=== PATIENT | male | born 1930 | race Caucasian/White ===

== ENCOUNTER 2020-04-06 10:46 | Inpatient (IN) | payer OTHER ==
[2020-04-06 11:05] VITALS: BMI 21.9
--- NOTE | 2020-04-06 11:18 | PDOC ---
History of Present Illness - General Chief Complaint: Injury Stated Complaint: FALL Time Seen by Provider: 04/06/20 10:55 - History of Present Illness Initial Comments: 04/06/20 11:32 89y/o M hx of HTN, pericarditis, [place] x3 (2005), angina, HLD< CVA , PAD, BPH, acid reflux, left hydrocolectomy (2014) presents to the ED after fall last night. Pt reports getting out of bed to go to the bathroom feeling lightheaded and finding himself on the floor. Pt stayed onthe floor for about 10 hours and was found by one of his housemates who called EMS. pt reports being awake all those hours, but could not get himself up because he felt weak. pt uses a cane for ambulation at baseline and does experience some weakness in his legs at baseline. pt reports falling primarily on his right side. he denies chest pain, shortness of breath, fevers, chills, nausea, vomiting before falling or afterwards. PMHx: as noted above ROS: as noted SHx: Denies Etoh, IVDA, tobacco use Allergies: NKDA ROS: GENERAL/CONSTITUTIONAL: No fever or chills. No weakness. HEAD, EYES, EARS, NOSE AND THROAT: No change in vision. No ear pain or discharge. No sore throat. CARDIOVASCULAR: No chest pain or shortness of breath RESPIRATORY: No cough, wheezing, or hemoptysis. GASTROINTESTINAL: No nausea, vomiting, diarrhea or constipation. GENITOURINARY: No dysuria, frequency, or change in urination. MUSCULOSKELETAL: No joint or muscle swelling or pain. No neck or back pain. SKIN: No rash NEUROLOGIC: No headache, vertigo, loss of consciousness, or change in strength/sensation. ENDOCRINE: No increased thirst. No abnormal weight change HEMATOLOGIC/LYMPHATIC: No anemia, easy bleeding, or history of blood clots. ALLERGIC/IMMUNOLOGIC: No hives or skin allergy. PE: GENERAL: Awake, alert, and fully oriented, in no acute distress HEAD: No signs of trauma, normocephalic, atraumatic EYES: PERRLA, EOMI, sclera anicteric, conjunctiva clear ENT: Auricles normal inspection, hearing grossly normal, nares patent, oropharynx clear without exudates. Moist mucosa NECK: Normal ROM, supple, no lymphadenopathy, JVD, or masses LUNGS: No distress, speaks full sentences, clear to auscultation bilaterally HEART: Regular rate and rhythm, normal S1 and S2, no murmurs, rubs or gallops, peripheral pulses normal and equal bilaterally. ABDOMEN: Soft, nontender, normoactive bowel sounds. No guarding, no rebound. No masses MSK: bruising on right side of back, no ttp. ttp of right hip. no spinal tenderness. bruising at right elbow(pt reports old) EXTREMITIES : Normal inspection, Normal range of motion, no edema. delayed capillary refill of 4s NEUROLOGICAL: Cranial nerves II through XII grossly intact. Normal speech, normal gait, no focal sensorimotor deficits SKIN: Warm, Dry, normal turgor, no rashes or lesions noted MDM DDx including but not limited to: tia, orthostatic, cardiac (acs, arrythmia) Workup: head and c-spine without contrast, labs, ekg, chest x-ray, right rib series. TX: Scores - HEART score - EKG: normal sinus rhythm, HR bpm, MD ms, QRS ms, QTc ms ED course meds: Re-assessment: 04/06/20 11:45 Past History - Medical History Allergies/Adverse Reactions: Allergies Allergy/AdvReac Type Severity Reaction Status Date / Time No Known Allergies Allergy Verified 04/06/20 11:06 Home Medications: Ambulatory Orders Amlodipine Besylate [Norvasc -] 10 mg PO DAILY 04/06/20 Aspirin [ASA -] 81 mg PO DAILY 04/06/20 Atorvastatin Ca [Lipitor] 80 mg PO HS 04/06/20 Clopidogrel Bisulfate [Plavix] 75 mg PO DAILY 04/06/20 Hydrochlorothiazide [Hctz -] 25 mg PO DAILY 04/06/20 Multivit-Min/FA/Lycopen/Lutein [Centrum Silver Tablet] 1 each PO DAILY 04/06/20 Nitroglycerin 0.4 mg SL PRN 04/06/20 Ranolazine [Ranexa] 500 mg PO BID 04/06/20 Saw [place] Fruit/Zinc Picoli [Saw [place] Capsule] 1 each PO DAILY 04/06/20 Cardiac Disorders: (stent) COPD: No GI Disorders: Yes (reflux) HTN: Yes Hypercholesterolemia: Yes - Surgical History Cardiac Surgery: (stent x3) - Immunization History Immunization Up to Date: No - Psycho-Social/Smoking History Smoking History: Former smoker Have you smoked in the past 12 months: No Information on smoking cessation initiated: No - Substance Abuse Hx (Audit-C & DAST Scrn) How often the patient has a drink containing alcohol: 2-3 times / week Number of drinks the patient has on a typical day: 1 or 2 How often the patient has six or more drinks on one occasion: Never Score: In Men: 4 or > Positive; In Women: 3 or > Positive: 3 Screen Result (Pos requires Nsg. Audit-10AR): Negative In the last yr the pt used illegal drug/Rx for NonMed reason: No Score: Yes response is considered Positive: 0 Screen Result (Positive result requires Nsg. DAST-10): Negative *Physical Exam - Vital Signs Last Vital Signs Temp Pulse Resp BP Pulse Ox 98.6 F 86 18 170/86 100 04/06/20 10:50 04/06/20 10:50 04/06/20 10:50 04/06/20 10:50 04/06/20 10:50 Heart Score/ECG Review - History History: Moderately suspicious - Electrocardiogram EKG: Non specific repolarization disturbance - Age Age: >/= 65 - Risk Factors Risk Factors Heart Score: Yes Hx Hypercholesterolemia, Yes Hx Hypertension Based on the list above the patient has:: 1-2 risk factors - Troponin Troponin: </= normal limit - Score Heart Score - Total: 5 ED Treatment Course - LABORATORY CBC & Chemistry Diagram: 04/06/20 11:15 04/06/20 11:15 - RADIOLOGY Radiology Studies Ordered: Category Date Time Status HEAD CT WITHOUT CONTRAST [CT] Stat CT Scan 04/06/20 10:55 Ordered CHEST X-RAY PORTABLE* [RAD] Stat Radiology 04/06/20 10:53 Completed Discharge - Follow up/Referral - Patient Discharge Instructions - Post Discharge Activity
[2020-04-06 11:45] LABS: BASO % 0.2 % (0-2.0); EOS % 0.1 % (0-4.5); HEMATOCRIT 36.2 % (35.4-49); HEMOGLOBIN 12.3 GM/dL (11.7-16.9); LYMPH % 7.9 % (8-40); MCH 31.3 pg (25.7-33.7); MCHC 34.1 g/dl (32.0-35.9); MEAN CELL VOLUME 91.9 fl (80-96); MEAN PLT VOLUME 7.5 fl (7.5-11.1); MONO % 7.1 % (3.8-10.2); NEUT % 84.7 % (42.8-82.8); PLATELET COUNT 242 K/MM3 (134-434); RBC 3.93 M/mm3 (4.00-5.60); RDW 14.6 % (11.9-15.9); WHITE BLOOD COUNT 13.4 K/mm3 (4.0-10.0)
[2020-04-06 11:53] LABS: INR 0.96 (0.83-1.09); PROTHROMBIN TIME (PATIENT) 11.3 SEC (9.7-13.0)
[2020-04-06 11:56] LABS: ACTIVATED PTT 27.8 SECONDS (25.2-36.5)
[2020-04-06 12:05] LABS: ALBUMIN 3.4 g/dl (3.4-5.0); BILIRUBIN,TOTAL 1.1 mg/dL (0.2-1); BLOOD UREA NITROGEN 28.1 mg/dL (7-18); CALCIUM 9.4 mg/dL (8.5-10.1); CREATININE 1.6 mg/dL (0.55-1.3); POTASSIUM 3.6 mmol/L (3.5-5.1); TOT PROT 6.6 g/dl (6.4-8.2)
--- NOTE | 2020-04-06 12:39 | EKG ---
Test Reason : Blood Pressure : / mmHG Vent. Rate : 084 BPM Atrial Rate : 084 BPM P-R Int : 154 ms QRS Dur : 094 ms QT Int : 392 ms P-R-T Axes : 000 045 041 degrees QTc Int : 463 ms POOR DATA QUALITY, INTERPRETATION MAY BE ADVERSELY AFFECTED SINUS RHYTHM WITH PREMATURE SUPRAVENTRICULAR COMPLEXES NONSPECIFIC ST ABNORMALITY ABNORMAL ECG NO PREVIOUS ECGS AVAILABLE Confirmed by Tarun Napier ([id number]) on 04/06/2020 12:39:35 PM Referred By: Confirmed By:Tarun Napier
--- NOTE | 2020-04-06 12:48 | PDOC ---
Documentation entered by Julio Frausto SCRIBE, acting as scribe for Deyanira Ramirez MD. Deyanira Ramirez MD: This documentation has been prepared by the scribe, Julio Frausto SCRIBE, under my direction and personally reviewed by me in its entirety. I confirm that the documentation accurately reflects all work, treatment, procedures, and medical decision making performed by me. Attending Attestation - Resident Resident Name: Vanessa Gonzaelz - ED Attending Attestation I have performed the following: I have examined & evaluated the patient, The case was reviewed & discussed with the resident, I agree w/resident's findings & plan, Exceptions are as noted - HPI HPI: 04/06/20 11:54 The patient is an 89 year old male with a significant past medical history of [place] x3 (2004), pericarditis, CVA, PAD, HTN, HLD, GERD, BPH, and left hydrocelectomy (2014) who presents to the emergency department, [facility], for evaluation of lightheadedness that caused a fall last night. The patient reports feeling lightheaded and then finding himself on the floor. EMS was called when the patient was found on the ground 10 hours later because he was too weak to stand. At baseline, the patient ambulates with a cane. The patient denies chest/abdominal/back pain, cough, and shortness of breath. Denies fever, chills, nausea, vomiting, and/or any GI symptoms. Denies any symptoms. Denies any other symptoms. Allergies: NKA Social Hx: The patient reports consuming 1-2 alcoholic drinks for 2-3 days per week. Denies drug use and smoking. Surgical Hx: stent x3 PCP: Dr. Lacey - Physicial Exam PE: 04/06/20 11:43 GENERAL: Awake, alert, and fully oriented, in no acute distress HEAD: No signs of trauma EYES: PERRLA, EOMI, sclera anicteric, conjunctiva clear ENT: Auricles normal inspection, hearing grossly normal, nares patent, oropharynx clear without exudates. Moist mucosa NECK: Normal ROM, supple, no lymphadenopathy, JVD, or masses LUNGS: Breath sounds equal, clear to auscultation bilaterally. No wheezes, and no crackles HEART: Regular rate and rhythm, normal S1 and S2, no murmurs, rubs or gallops ABDOMEN: Soft, nontender, normoactive bowel sounds. No guarding, no rebound. No masses EXTREMITIES: Normal range of motion, no edema. No clubbing or cyanosis. No cords, erythema, or tenderness NEUROLOGICAL: Cranial nerves II through XII grossly intact. Normal speech. Motor and sensation grossly intact. Gait not tested due to nature of complaint. SKIN: Warm, Dry, normal turgor, no rashes or lesions noted. - Medical Decision Making 04/06/20 12:47 Pt is s/p fall with LOC due to diffuse weakness/lightheadedness. Will do a syncope workup, XR pelvis and R hip due to pain, and CTH. Plan for admission for syncope. Discharge - Discharge Information Problems reviewed: Yes Clinical Impression/Diagnosis: Syncope and collapse - Follow up/Referral - Patient Discharge Instructions - Post Discharge Activity
[2020-04-06] MEDS ORDERED: SODIUM CHLORIDE 0.9% 500 ML INFUS.BAG IV ONE (13:03)
[2020-04-06] MEDS ORDERED: METOCLOPRAMIDE HCL INJECTION 10 MG/2 ML VIAL IVPUSH ONE (13:16)
[2020-04-06] MEDS ORDERED: METOCLOPRAMIDE HCL INJECTION 10 MG/2 ML VIAL ONE (13:17)
--- NOTE | 2020-04-06 13:17 | HP ---
Admitting History and Physical - Admission Chief Complaint: Acute syncope and collapse History of Present Illness: This 89 yr old w/m with PMH of HTN, pericarditis, MIx3, angina pectoris, HLD, C VA, PAD, BPH, left hydrocelectomy, GERD admitted via ER with an acute syncope and collapse, unwitnessed fall, concussion unsp with brief LOC. 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: Yes: CVA Cardiovascular: Yes: CAD, HTN, Hyperlipdemia, [place] Pulmonary: No: Asthma, Bronchitis, Cancer, COPD, O2 Dependent, Pneumonia, Previously Intubated, Pulmonary Embolus, Pulmonary Fibrosis, Sleep Apnea, Other Gastrointestinal: Yes: GERD Hepatobiliary: No: Cirrhosis, Cholelithiasis, Cholecystitis, Choledocholithiasis, Hepatitis A, Hepatitis B, Hepatitis C, Other Renal/: No: Renal Failure, Renal Inusuff, BPH, Cancer, Hematuria, Hemodialysis, Neurogenic Bladder, Renal Calculi, UTI, Other Heme/Onc: No: Anemia, B12 Deficiency, Bleeding Disorder, Cancer, Current Chemotherapy, Current Radiation Therapy, Hemochromatosis, Hypercoaguable State, Myeloproliferative Synd, Sickle Cell Disease, Sickle Cell Trait, Thrombocytopenia, Other Infectious Disease: No: AIDS, C-Diff, Herpes Zoster, HIV, MRSA, STD's, Tuberculosis, VREF, Other Psych: No: Addictions, Anxiety, Bipolar, Depression, Panic, Psychosis, Schizophrenia, Other Musculoskeletal: No: Bursitis, Chronic low back pain, Hemiparesis, Hemiplegia, Osteoarthritis, Paraplegia, Other Rheumatology: No: Fibromyalgia, Gout, Lupus, Rheumatoid Arthritis, Sarcoidosis, Vasculitis, Other ENT: No: Allergic Rhinitis, Sinusitis, Other Endocrine: No: [place]'s Disease, Erwin's Disease, Diabetes Insipidus, Diabetes Mellitus, Hyperparathyroidism, Hyperthyroidism, Hypothyroidism, Osteopenia, SIADH, Other Dermatology: No: Basal Cell, Cellulitis, Eczema, Melanoma, Psoriasis, Squamous Cell, Other - Past Surgical History Past Surgical History: Yes: Cystectomy - Smoking History Smoking history: Former smoker Have you smoked in the past 12 months: No - Social History Usual Living Arrangement: Yes: With Significant Other Home Medications - Allergies Allergies/Adverse Reactions: Allergies Allergy/AdvReac Type Severity Reaction Status Date / Time No Known Allergies Allergy Verified 04/06/20 11:06 - Home Medications Home Medications: Ambulatory Orders Amlodipine Besylate [Norvasc -] 10 mg PO DAILY 04/06/20 Aspirin [ASA -] 81 mg PO DAILY 04/06/20 Atorvastatin Ca [Lipitor] 80 mg PO HS 04/06/20 Clopidogrel Bisulfate [Plavix] 75 mg PO DAILY 04/06/20 Hydrochlorothiazide [Hctz -] 25 mg PO DAILY 04/06/20 Multivit-Min/FA/Lycopen/Lutein [Centrum Silver Tablet] 1 each PO DAILY 04/06/20 Nitroglycerin 0.4 mg SL PRN 04/06/20 Ranolazine [Ranexa] 500 mg PO BID 04/06/20 Saw [place] Fruit/Zinc Picoli [Saw [place] Capsule] 1 each PO DAILY 04/06/20 Review of Systems - Review of Systems Constitutional: reports: No Symptoms Eyes: reports: No Symptoms HENT: reports: No Symptoms Neck: reports: No Symptoms Cardiovascular: reports: No Symptoms Respiratory: reports: No Symptoms Gastrointestinal: reports: No Symptoms Genitourinary: reports: No Symptoms Breasts: reports: No Symptoms Reported Musculoskeletal: reports: Muscle Weakness Integumentary: reports: No Symptoms Neurological: reports: Weakness Endocrine: reports: No Symptoms Hematology/Lymphatic: reports: No Symptoms Psychiatric: reports: No Symptoms Physical Examination Vital Signs: Vital Signs Temperature 98.6 F 04/06/20 10:50 Pulse Rate 86 04/06/20 10:50 Respiratory Rate 18 04/06/20 10:50 Blood Pressure 170/86 04/06/20 10:50 O2 Sat by Pulse Oximetry (%) 100 04/06/20 11:00 Constitutional: Yes: Well Nourished, No Distress, Calm Eyes: Yes: Conjunctiva Clear, EOM Intact HENT: Yes: Atraumatic, Normocephalic Neck: Yes: Supple, Trachea Midline Cardiovascular: Yes: Regular Rate and Rhythm Respiratory: Yes: Regular, CTA Bilaterally Gastrointestinal: Yes: Normal Bowel Sounds, Soft ...Rectal Exam: Yes: Deferred Renal/: Yes: WNL Breast(s): Yes: WNL Musculoskeletal: Yes: Muscle Weakness Edema: No Peripheral Pulses WNL: Yes Integumentary: Yes: WNL Neurological: Yes: Alert, Oriented, Weakness ...Motor Strength: LLE (muscle weakness), RLE (muscle weakness) Psychiatric: Yes: Alert, Oriented Labs: CBC, BMP 04/06/20 11:15 04/06/20 11:15 Imaging - Results Chest X-ray: Report Reviewed Cat Scan: Report Reviewed EKG: Report Reviewed Other: Report Reviewed (lab data reviewed) Problem List - Problems (1) Syncope and collapse Code(s): R55 - SYNCOPE AND COLLAPSE (2) Concussion with brief LOC Code(s): S06.0X9A - CONCUSSION W LOSS OF CONSCIOUSNESS OF UNSP DURATION, INIT (3) Hypertension Code(s): I10 - ESSENTIAL (PRIMARY) HYPERTENSION (4) Coronary artery disease Code(s): I25.10 - ATHSCL HEART DISEASE OF [place] CORONARY ARTERY W/O ANG PCTRS (5) BPH (benign prostatic hyperplasia) Code(s): N40.0 - BENIGN PROSTATIC HYPERPLASIA WITHOUT LOWER URINRY TRACT SYMP (6) GERD (gastroesophageal reflux disease) Code(s): K21.9 - GASTRO-ESOPHAGEAL REFLUX DISEASE WITHOUT ESOPHAGITIS (7) Old myocardial infarction Code(s): I25.2 - OLD MYOCARDIAL INFARCTION (8) Hyperlipidemia Code(s): E78.5 - HYPERLIPIDEMIA, UNSPECIFIED (9) Chronic arterial ischemic stroke Code(s): I69.30 - UNSPECIFIED SEQUELAE OF CEREBRAL INFARCTION (10) History of hydrocelectomy Code(s): Z98.890 - OTHER SPECIFIED POSTPROCEDURAL STATES Assessment/Plan Assessment/plan: acute syncope and collapse, unwitnessed fall, concussion unsp with brief LOC, HTN, CAD, [place] X3, HLD, BPH, GERD, s/p left hydrocelectomy, PAD, CVA; a/c with Clopidogrel and aspirin, DVT/GI prophylaxis, amlodipine and HCTZ for HTN, atorvastatin for HLD, ranexa and NTG for CAD, consult to Cardiology, physical therapy for deconditioning, carotid doppler.
[2020-04-06] MEDS ORDERED: NITROGLYCERIN SUBLINGUAL 1/150 0.4 MG TAB SL PRN (14:15)
--- NOTE | 2020-04-06 15:22 | CON.CARD ---
Consult Consult Specialty:: Cardiology for dr. Esparza - History of Present Illness History of Present Illness: The patient is an 89 year old male with a significant past medical history of [place] x3 (2004), pericarditis, CVA, PAD, HTN, HLD, GERD, BPH, and left hydrocelectomy (2014) who presents to the emergency department, [facility], for evaluation of lightheadedness that caused a fall last night. The patient reports feeling lightheaded and then finding himself on the floor. EMS was called when the patient was found on the ground 10 hours later because he was too weak to stand. At baseline, the patient ambulates with a cane. [facility] Scarlet Fever/pertusis and UCHD 1954 2014 kidney stones/ 1964 2014 Hydorcelectomy 2004 EGD abd colonoscopy TV adenoma removed Patient has an extensive past medical history of PAD and CAD. He is a poor informant and his detailed past medical records are unavailable. 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 Overall left ventricular systolic function is normal with an EF between 65 - 70 %. 2. Basal septal hypertrophy. 3. Trace amount of aortic regurgitation. 4. Mild mitral regurgitation is present. 5. Trace tricuspid regurgitation present. 6. Right ventricular systolic pressure is normal at < 35 mmHg. 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 Cardio/Vascular: Yes: CAD, HTN, Hyperlipdemia, [place] Pulmonary: No: Asthma, Bronchitis, Cancer, COPD, O2 Dependent, Pneumonia, Previously Intubated, Pulmonary Embolus, Pulmonary Fibrosis, Sleep Apnea, Other Gastrointestinal: Yes: GERD Hepatobiliary: No: Cirrhosis, Cholelithiasis, Cholecystitis, Choledocholithiasis, Hepatitis A, Hepatitis B, Hepatitis C, Other Renal/: No: Renal Failure, Renal Inusuff, BPH, Cancer, Hematuria, H emodialysis, Neurogenic Bladder, Renal Calculi, UTI, Other Infectious Disease: No: AIDS, C-Diff, Herpes Zoster, HIV, MRSA, STD's, Tuberculosis, VREF, Other Psych: No: Addictions, Anxiety, Bipolar, Depression, Panic, Psychosis, Schizophrenia, Other Musculoskeletal: No: Bursitis, Chronic low back pain, Hemiparesis, Hemiplegia, Osteoarthritis, Paraplegia, Other Rheumatology: No: Fibromyalgia, Gout, Lupus, Rheumatoid Arthritis, Sarcoidosis, Vasculitis, Other ENT: No: Allergic Rhinitis, Sinusitis, Other Endocrine: No: [place]'s Disease, [place]'s Disease, Diabetes Insipidus, Diabetes Mellitus, Hyperparathyroidism, Hyperthyroidism, Hypothyroidism, Osteopenia, SIADH, Other Dermatology: No: Basal Cell, Cellulitis, Eczema, Melanoma, Psoriasis, Squamous Cell, Other - Past Surgical History Past Surgical History: Yes: Cystectomy - Smoking History Smoking history: Former smoker Have you smoked in the past 12 months: No Home Medications - Allergies Allergies/Adverse Reactions: Allergies Allergy/AdvReac Type Severity Reaction Status Date / Time No Known Allergies Allergy Verified 04/06/20 11:06 - Home Medications Home Medications: Ambulatory Orders Amlodipine Besylate [Norvasc -] 10 mg PO DAILY 04/06/20 Aspirin [ASA -] 81 mg PO DAILY 04/06/20 Atorvastatin Ca [Lipitor] 80 mg PO HS 04/06/20 Clopidogrel Bisulfate [Plavix] 75 mg PO DAILY 04/06/20 Hydrochlorothiazide [Hctz -] 25 mg PO DAILY 04/06/20 Multivit-Min/FA/Lycopen/Lutein [Centrum Silver Tablet] 1 each PO DAILY 04/06/20 Nitroglycerin 0.4 mg SL PRN 04/06/20 Ranolazine [Ranexa] 500 mg PO BID 04/06/20 Saw [place] Fruit/Zinc Picoli [Saw [place] Capsule] 1 each PO DAILY 04/06/20 Review of Systems - Review of Systems Constitutional: reports: No Symptoms Eyes: reports: No Symptoms HENT: reports: No Symptoms Neck: reports: No Symptoms Cardiovascular: reports: No Symptoms Gastrointestinal: reports: No Symptoms Genitourinary: reports: No Symptoms Breasts: reports: No Symptoms Reported Musculoskeletal: reports: No Symptoms Integumentary: reports: No Symptoms Neurological: reports: Syncope Endocrine: reports: No Symptoms Hematology/Lymphatic: reports: No Symptoms Psychiatric: reports: No Symptoms Vital Signs: Vital Signs Temperature 98.6 F 04/06/20 10:50 Pulse Rate 86 04/06/20 10:50 Respiratory Rate 18 04/06/20 10:50 Blood Pressure 170/86 04/06/20 10:50 O2 Sat by Pulse Oximetry (%) 100 04/06/20 11:00 Constitutional: Yes: Well Nourished, No Distress, Calm Eyes: Yes: WNL, Conjunctiva Clear, EOM Intact HENT: Yes: WNL, Atraumatic, Normocephalic Neck: Yes: WNL, Supple, Trachea Midline Respiratory: Yes: WNL, Regular, CTA Bilaterally Gastrointestinal: Yes: WNL, Normal Bowel Sounds Renal/: Yes: WNL Cardiovascular: Yes: WNL, Regular Rate and Rhythm Musculoskeletal: Yes: WNL Extremities: Yes: WNL Integumentary: Yes: WNL Neurological: Yes: WNL, Alert, Oriented ...Motor Strength: WNL Psychiatric: Yes: WNL, Alert, Oriented - Other Data Labs, Other Data: CBC, BMP 04/06/20 11:15 04/06/20 11:15 INR, PTT INR 0.96 (0.83-1.09) 04/06/20 11:15 Troponin, BNP 04/06/20 11:15 Troponin I 0.03 Troponin, BNP 04/06/20 11:15 Troponin I 0.03 Imaging - Results Chest X-ray: Image Reviewed (no i/e) EKG: Image Reviewed (s r apcs rep abn) Problem List - Problems (1) BPH (benign prostatic hyperplasia) Code(s): N40.0 - BENIGN PROSTATIC HYPERPLASIA WITHOUT LOWER URINRY TRACT SYMP (2) Chronic arterial ischemic stroke Code(s): I69.30 - UNSPECIFIED SEQUELAE OF CEREBRAL INFARCTION (3) Concussion with brief LOC Code(s): S06.0X9A - CONCUSSION W LOSS OF CONSCIOUSNESS OF UNSP DURATION, INIT (4) Coronary artery disease Code(s): I25.10 - ATHSCL HEART DISEASE OF [place] CORONARY ARTERY W/O ANG PCTRS (5) GERD (gastroesophageal reflux disease) Code(s): K21.9 - GASTRO-ESOPHAGEAL REFLUX DISEASE WITHOUT ESOPHAGITIS (6) History of hydrocelectomy Code(s): Z98.890 - OTHER SPECIFIED POSTPROCEDURAL STATES (7) Hyperlipidemia Code(s): E78.5 - HYPERLIPIDEMIA, UNSPECIFIED (8) Hypertension Code(s): I10 - ESSENTIAL (PRIMARY) HYPERTENSION (9) Old myocardial infarction Code(s): I25.2 - OLD MYOCARDIAL INFARCTION (10) Syncope and collapse Code(s): R55 - SYNCOPE AND COLLAPSE Assessment/Plan 89 year old male with a significant past medical history of [place] x3 (2004), pericarditis, CVA, PAD, HTN, HLD, GERD, BPH, and left hydrocelectomy (2014) who presents to the emergency department, [facility], for evaluation of lightheade dness that caused a fall last night. CE neg Plan; Cont DAPT R/o [place] Telemetry DVT plx
[2020-04-06] MEDS ORDERED: PANTOPRAZOLE 40 MG TABLET ONE (15:50)
[2020-04-06] MEDS: PANTOPRAZOLE 40 MG TABLET PO SCH (15:52)
[2020-04-06] MEDS: D5-1/2NS+10 MEQ KCL - 10 MEQ/1,000 ML INFUS.BAG IV SCH (17:30)
[2020-04-06 19:48] LABS: EPI CELLS 1 /uL (0-25.1); HYALINE CASTS 1 /uL (0-3.1); URINE APPEARANCE CLOUDY; URINE BACTERIA 143 /uL (0-1359); URINE BILIRUBIN NEGATIVE (NEGATIVE); URINE COLOR YELLOW; URINE GLUCOSE (UA) NEGATIVE (NEGATIVE); URINE KETONE NEGATIVE (NEGATIVE); URINE LEUK ESTERASE 2+ (NEGATIVE); URINE NITRITE NEGATIVE (NEGATIVE); URINE PROTEIN NEGATIVE (NEGATIVE); URINE RBC 9 /uL (0-23.9); URINE UROBILINOGEN 0.2 mg/dL (0.2-1.0); URINE WBC 476 /uL (0-25.8)
[2020-04-06] MEDS ORDERED: ATORVASTATIN CA 80 MG TABLET (FP) ONE (21:23)
[2020-04-06] MEDS: ATORVASTATIN CA 80 MG TABLET (FP) PO SCH (22:04)
[2020-04-06] MEDS: RANOLAZINE E.R. 500 MG TABLET (FP) PO SCH (22:04)
[2020-04-07 07:20] LABS: BASO % 0.5 % (0-2.0); EOS % 0.9 % (0-4.5); HEMOGLOBIN 12.3 GM/dL (11.7-16.9); LYMPH % 13.2 % (8-40); MCH 31.2 pg (25.7-33.7); MCHC 34.1 g/dl (32.0-35.9); MEAN CELL VOLUME 91.4 fl (80-96); MEAN PLT VOLUME 7.5 fl (7.5-11.1); MONO % 8.2 % (3.8-10.2); NEUT % 77.2 % (42.8-82.8); PLATELET COUNT 226 K/MM3 (134-434); RBC 3.94 M/mm3 (4.00-5.60); RDW 14.6 % (11.9-15.9); WHITE BLOOD COUNT 9.9 K/mm3 (4.0-10.0)
[2020-04-07 07:56] LABS: BILIRUBIN,TOTAL 1.4 mg/dL (0.2-1); BLOOD UREA NITROGEN 21.7 mg/dL (7-18); CALCIUM 9.2 mg/dL (8.5-10.1); CREATININE 1.4 mg/dL (0.55-1.3); POTASSIUM 3.6 mmol/L (3.5-5.1); TOT PROT 6.1 g/dl (6.4-8.2)
--- NOTE | 2020-04-07 08:50 | PN ---
Progress Note, Physician Chief Complaint: Patient seen and examined at the bedside, no acute events from last night, no dizziness or chest pain. History of Present Illness: This 89 yr old w/m with PMH of HTN, pericarditis, [place] X3, CAD, HLD, CVA, PAD, BPH and left hydrocelectomy admitted via ER with an acute syncope and collapse, unwitnessed fall, and concussion unsp with brief LOC. - Current Medication List Current Medications: Active Medications Amlodipine Besylate (Norvasc -) 10 mg PO DAILY [facility] Aspirin (Ecotrin -) 81 mg PO DAILY [facility] Atorvastatin Calcium (Lipitor -) 80 mg PO HS [facility] Last Admin: 04/06/20 22:04 Dose: 80 mg Documented by: Clopidogrel Bisulfate (Plavix -) 75 mg PO DAILY [facility] Hydrochlorothiazide (Hctz -) 25 mg PO DAILY [facility] Potassium Chloride/Dextrose/Sod Cl (D5-1/2ns+10 Meq Kcl -) 10 meq in 1,000 mls @ 50 mls/hr IV ASDIR [facility] Last Admin: 04/06/20 17:30 Dose: 50 mls/hr Documented by: Multivitamins/Minerals (Theragran-M) 1 each PO DAILY [facility] Nitroglycerin (Nitrostat -) 0.4 mg SL Q5M PRN PRN Reason: FOR CHEST PAIN Pantoprazole Sodium (Protonix -) 40 mg PO DAILY [facility] Last Admin: 04/06/20 15:52 Dose: 40 mg Documented by: Ranolazine (Ranexa -) 500 mg PO BID [facility] Last Admin: 04/06/20 22:04 Dose: 500 mg Documented by: - Objective Vital Signs: Vital Signs Temperature 98.1 F 04/07/20 06:10 Pulse Rate 70 04/07/20 06:10 Respiratory Rate 16 04/07/20 06:10 Blood Pressure 127/68 04/07/20 06:10 O2 Sat by Pulse Oximetry (%) 98 04/07/20 06:10 Constitutional: Yes: Well Nourished, No Distress, Calm Eyes: Yes: Conjunctiva Clear, EOM Intact HENT: Yes: Atraumatic, Normocephalic Neck: Yes: Supple, Trachea Midline Cardiovascular: Yes: Regular Rate and Rhythm Respiratory: Yes: Regular, CTA Bilaterally Gastrointestinal: Yes: Normal Bowel Sounds, Soft ...Rectal Exam: Yes: Deferred Breast(s): Yes: WNL Musculoskeletal: Yes: Muscle Weakness Extremities: Yes: WNL Edema: No Peripheral Pulses WNL: Yes Integumentary: Yes: WNL Neurological: Yes: Alert, Weakness ...Motor Strength: LLE (muscle weakness), RLE (muscle weakness) Psychiatric: Yes: Alert Labs: CBC, BMP 04/07/20 06:08 04/07/20 06:08 INR, PTT INR 0.96 (0.83-1.09) 04/06/20 11:15 - ....Imaging Other: Report Reviewed (lab data reviewed) Problem List - Problems (1) Syncope and collapse Code(s): R55 - SYNCOPE AND COLLAPSE (2) Concussion with brief LOC Code(s): S06.0X9A - CONCUSSION W LOSS OF CONSCIOUSNESS OF UNSP DURATION, INIT (3) Hypertension Code(s): I10 - ESSENTIAL (PRIMARY) HYPERTENSION (4) Coronary artery disease Code(s): I25.10 - ATHSCL HEART DISEASE OF [place] CORONARY ARTERY W/O ANG PCTRS (5) BPH (benign prostatic hyperplasia) Code(s): N40.0 - BENIGN PROSTATIC HYPERPLASIA WITHOUT LOWER URINRY TRACT SYMP (6) GERD (gastroesophageal reflux disease) Code(s): K21.9 - GASTRO-ESOPHAGEAL REFLUX DISEASE WITHOUT ESOPHAGITIS (7) Old myocardial infarction Code(s): I25.2 - OLD MYOCARDIAL INFARCTION (8) Hyperlipidemia Code(s): E78.5 - HYPERLIPIDEMIA, UNSPECIFIED (9) Chronic arterial ischemic stroke Code(s): I69.30 - UNSPECIFIED SEQUELAE OF CEREBRAL INFARCTION (10) History of hydrocelectomy Code(s): Z98.890 - OTHER SPECIFIED POSTPROCEDURAL STATES Assessment/Plan Assessment/plan: acute syncope and collapse, unwitnessed fall, concussion with brief LOC, acute elevation of cardiac enzymes and troponin, acute coronary artery disease, HTN, HLD, [place] X3, pericarditis, CVA, PAD, BPH, Carotid doppler - no sonographic evidence of high grade stenosis or occlusion; amlodipine ranexa, nitroglycerin for CAD and HTN; a/c with Clopidogrel and aspirin; IV fluids for dehydration and prerenal azotemia; physical therapy for deconditiong; oxygen 3 L/min via nasal cannula, HCTZ for HTN.
--- NOTE | 2020-04-07 10:17 | PN ---
Progress Note, Physician History of Present Illness: The patient is an 89 year old male with a significant past medical history of MS x3 (2004), pericarditis, CVA, PAD, HTN, HLD, GERD, BPH, and left hydrocelectomy (2014) who presents to the emergency department, [facility], for evaluation of lightheadedness that caused a fall last night. The patient reports feeling lightheaded and then finding himself on the floor. EMS was called when the patient was found on the ground 10 hours later because he was too weak to stand. At baseline, the patient ambulates with a cane. H Scarlet Fever/pertusis and UCHD 1954 2014 kidney stones/ 1964 2014 Hydorcelectomy 2004 EGD abd colonoscopy TV adenoma removed Patient has an extensive past medical history of PAD and CAD. He is a poor informant and his detailed past medical records are unavailable. Ongoing medical problems CAD RCA and LAD occlusion: cardiac cath Hypertension Hyperlipidemia Angioplasty and stent PAD 2007 Right pariental CVA with seizure activity paroxysmal SVT S/P MS (Myocardial infarction) non Q wave GERD Diverticulosis BPH Pericarditis in 2001 ECHO Mar 2020 1. Overall left ventricular systolic function is normal with an EF between 65 - 70 %. 2. Basal septal hypertrophy. 3. Trace amount of aortic regurgitation. 4. Mild mitral regurgitation is present. 5. Trace tricuspid regurgitation present. 6. Right ventricular systolic pressure is normal at < 35 mmHg. - Current Medication List Current Medications: Active Medications Amlodipine Besylate (Norvasc -) 10 mg PO DAILY [facility] Aspirin (Ecotrin -) 81 mg PO DAILY [facility] Atorvastatin Calcium (Lipitor -) 80 mg PO HS [facility] Last Admin: 04/06/20 22:04 Dose: 80 mg Documented by: Clopidogrel Bisulfate (Plavix -) 75 mg PO DAILY [facility] Hydrochlorothiazide (Hctz -) 25 mg PO DAILY [facility] Potassium Chloride/Dextrose/Sod Cl (D5-1/2ns+10 Meq Kcl -) 10 meq in 1,000 mls @ 50 mls/hr IV ASDIR [facility] Last Admin: 04/06/20 17:30 Dose: 50 mls/hr Documented by: Multivitamins/Minerals (Theragran-M) 1 each PO DAILY [facility] Nitroglycerin (Nitrostat -) 0.4 mg SL Q5M PRN PRN Reason: FOR CHEST PAIN Pantoprazole Sodium (Protonix -) 40 mg PO DAILY [facility] Last Admin: 04/06/20 15:52 Dose: 40 mg Documented by: Ranolazine (Ranexa -) 500 mg PO BID [facility] Last Admin: 04/06/20 22:04 Dose: 500 mg Documented by: - Objective Vital Signs: Vital Signs Temperature 98.1 F 04/07/20 06:10 Pulse Rate 70 04/07/20 06:10 Respiratory Rate 16 04/07/20 06:10 Blood Pressure 127/68 04/07/20 06:10 O2 Sat by Pulse Oximetry (%) 98 04/07/20 06:10 Eyes: Yes: WNL, Conjunctiva Clear, EOM Intact HENT: Yes: WNL, Atraumatic, Normocephalic Neck: Yes: WNL, Supple, Trachea Midline Cardiovascular: Yes: WNL, Regular Rate and Rhythm Respiratory: Yes: WNL, Regular, CTA Bilaterally Gastrointestinal: Yes: WNL, Normal Bowel Sounds Genitourinary: Yes: WNL Musculoskeletal: Yes: WNL Extremities: Yes: WNL Edema: No Integumentary: Yes: WNL Neurological: Yes: WNL, Alert, Oriented ...Motor Strength: WNL Psychiatric: Yes: WNL Labs: CBC, BMP 04/07/20 06:08 04/07/20 06:08 INR, PTT INR 0.96 (0.83-1.09) 04/06/20 11:15 Problem List - Problems (1) BPH (benign prostatic hyperplasia) Code(s): N40.0 - BENIGN PROSTATIC HYPERPLASIA WITHOUT LOWER URINRY TRACT SYMP (2) Chronic arterial ischemic stroke Code(s): I69.30 - UNSPECIFIED SEQUELAE OF CEREBRAL INFARCTION (3) Concussion with brief LOC Code(s): S06.0X9A - CONCUSSION W LOSS OF CONSCIOUSNESS OF UNSP DURATION, INIT (4) Coronary artery disease Code(s): I25.10 - ATHSCL HEART DISEASE OF [place] CORONARY ARTERY W/O ANG PCTRS (5) GERD (gastroesophageal reflux disease) Code(s): K21.9 - GASTRO-ESOPHAGEAL REFLUX DISEASE WITHOUT ESOPHAGITIS (6) History of hydrocelectomy Code(s): Z98.890 - OTHER SPECIFIED POSTPROCEDURAL STATES (7) Hyperlipidemia Code(s): E78.5 - HYPERLIPIDEMIA, UNSPECIFIED (8) Hypertension Code(s): I10 - ESSENTIAL (PRIMARY) HYPERTENSION (9) Old myocardial infarction Code(s): I25.2 - OLD MYOCARDIAL INFARCTION (10) Syncope and collapse Code(s): R55 - SYNCOPE AND COLLAPSE Assessment/Plan 89 year old male with a significant past medical history of MS x3 (2004), pericarditis, CVA, PAD, HTN, HLD, GERD, BPH, and left hydrocelectomy (2014) who presents to the emergency department, [facility], for evaluation of lightheadedness that caused a fall last night. CE neg Plan; Cont DAPT R/o MS Telemetry DVT plx
[2020-04-07] MEDS: ASPIRIN COATED 81 MG TABLET.EC PO SCH (10:27)
[2020-04-07] MEDS: PANTOPRAZOLE 40 MG TABLET PO SCH (10:27)
[2020-04-07] MEDS: RANOLAZINE E.R. 500 MG TABLET (FP) PO SCH ×3 (10:27→22:27)
[2020-04-07] MEDS: CLOPIDOGREL BISULFATE 75 MG TABLET (FP) PO SCH (10:27)
[2020-04-07] MEDS: HYDROCHLOROTHIAZIDE 25 MG TABLET (FP) PO SCH ×2 (10:27→12:04)
[2020-04-07] MEDS: amLODIPine BESYLATE 10 MG TABLET (FP) PO SCH ×2 (10:27→12:05)
[2020-04-07] MEDS ORDERED: CLOPIDOGREL BISULFATE 75 MG TABLET (FP) ONE (12:00)
[2020-04-07] MEDS ORDERED: PANTOPRAZOLE 40 MG TABLET ONE (12:00)
[2020-04-07] MEDS: MULTIVITAMINS THER W-MINERALS COMBO TABLET (FP) PO SCH (12:05)
[2020-04-07] MEDS: D5-1/2NS+10 MEQ KCL - 10 MEQ/1,000 ML INFUS.BAG IV SCH (16:25)
[2020-04-07] MEDS: ATORVASTATIN CA 80 MG TABLET (FP) PO SCH (22:27)
--- NOTE | 2020-04-08 05:13 | PN ---
Progress Note, Physician Chief Complaint: Patient seen and examined at the bedside, no acute events from last night, afebrile, no dizziness or chest pain. 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 - Current Medication List Current Medications: Active Medications Amlodipine Besylate (Norvasc -) 10 mg PO DAILY [facility] Last Admin: 04/07/20 12:05 Dose: 10 mg Documented by: Aspirin (Ecotrin -) 81 mg PO DAILY [facility] Last Admin: 04/07/20 10:27 Dose: 81 mg Documented by: Atorvastatin Calcium (Lipitor -) 80 mg PO HS [facility] Last Admin: 04/07/20 22:27 Dose: 80 mg Documented by: Clopidogrel Bisulfate (Plavix -) 75 mg PO DAILY [facility] Last Admin: 04/07/20 10:27 Dose: 75 mg Documented by: Hydrochlorothiazide (Hctz -) 25 mg PO DAILY [facility] Last Admin: 04/07/20 12:04 Dose: 25 mg Documented by: Potassium Chloride/Dextrose/Sod Cl (D5-1/2ns+10 Meq Kcl -) 10 meq in 1,000 mls @ 50 mls/hr IV ASDIR [facility] Last Admin: 04/07/20 16:25 Dose: Not Given Documented by: Multivitamins/Minerals (Theragran-M) 1 each PO DAILY [facility] Last Admin: 04/07/20 12:05 Dose: 1 each Documented by: Nitroglycerin (Nitrostat -) 0.4 mg SL Q5M PRN PRN Reason: FOR CHEST PAIN Pantoprazole Sodium (Protonix -) 40 mg PO DAILY [facility] Last Admin: 04/07/20 10:27 Dose: 40 mg Documented by: Ranolazine (Ranexa -) 500 mg PO BID [facility] Last Admin: 04/07/20 22:27 Dose: 500 mg Documented by: - Objective Vital Signs: Vital Signs Temperature 98 F 04/08/20 00:55 Pulse Rate 84 04/08/20 00:55 Respiratory Rate 18 04/08/20 00:55 Blood Pressure 147/88 04/08/20 00:55 O2 Sat by Pulse Oximetry (%) 97 04/07/20 21:00 Constitutional: Yes: Well Nourished, No Distress, Calm Eyes: Yes: Conjunctiva Clear, EOM Intact HENT: Yes: Atraumatic, Normocephalic Neck: Yes: Supple, Trachea Midline Cardiovascular: Yes: Regular Rate and Rhythm Respiratory: Yes: Regular, CTA Bilaterally Gastrointestinal: Yes: Normal Bowel Sounds, Soft ...Rectal Exam: Yes: Deferred Genitourinary: Yes: WNL Breast(s): Yes: WNL Musculoskeletal: Yes: Muscle Weakness Extremities: Yes: WNL Edema: No Peripheral Pulses WNL: Yes Integumentary: Yes: WNL Neurological: Yes: Alert, Weakness ...Motor Strength: LLE (muscle weakness), RLE (muscle weakness) Psychiatric: Yes: Alert Labs: CBC, BMP 04/07/20 06:08 04/07/20 06:08 INR, PTT INR 0.96 (0.83-1.09) 04/06/20 11:15 Problem List - Problems (1) Syncope and collapse Code(s): R55 - SYNCOPE AND COLLAPSE (2) Concussion with brief LOC Code(s): S06.0X9A - CONCUSSION W LOSS OF CONSCIOUSNESS OF UNSP DURATION, INIT (3) Hypertension Code(s): I10 - ESSENTIAL (PRIMARY) HYPERTENSION (4) Coronary artery disease Code(s): I25.10 - ATHSCL HEART DISEASE OF [place] CORONARY ARTERY W/O ANG PCTRS (5) BPH (benign prostatic hyperplasia) Code(s): N40.0 - BENIGN PROSTATIC HYPERPLASIA WITHOUT LOWER URINRY TRACT SYMP (6) GERD (gastroesophageal reflux disease) Code(s): K21.9 - GASTRO-ESOPHAGEAL REFLUX DISEASE WITHOUT ESOPHAGITIS (7) Old myocardial infarction Code(s): I25.2 - OLD MYOCARDIAL INFARCTION (8) Hyperlipidemia Code(s): E78.5 - HYPERLIPIDEMIA, UNSPECIFIED (9) Chronic arterial ischemic stroke Code(s): I69.30 - UNSPECIFIED SEQUELAE OF CEREBRAL INFARCTION (10) History of hydrocelectomy Code(s): Z98.890 - OTHER SPECIFIED POSTPROCEDURAL STATES Assessment/Plan Assessment/plan: a/c with dual antiplatelet therapy; amlodipine ranexa and nitroglycerin for CAD; atorvastatin for HLD; DVT/GI prophylaxis; IV fluids for dehydration; HCTZ for HTN; elevated BUN and s creatinine trending down; elevated troponin and ck-mb gradually rising, today's blood tests are pending, physical therapy for deconditioning, discussed clinical condition with the patient.
[2020-04-08 06:54] LABS: BASO % 0.4 % (0-2.0); EOS % 1.5 % (0-4.5); HEMATOCRIT 36.6 % (35.4-49); HEMOGLOBIN 12.4 GM/dL (11.7-16.9); LYMPH % 11.9 % (8-40); MCH 31.2 pg (25.7-33.7); MCHC 33.8 g/dl (32.0-35.9); MEAN CELL VOLUME 92.2 fl (80-96); MEAN PLT VOLUME 7.8 fl (7.5-11.1); MONO % 9.2 % (3.8-10.2); PLATELET COUNT 212 K/MM3 (134-434); RBC 3.96 M/mm3 (4.00-5.60); RDW 15.1 % (11.9-15.9); WHITE BLOOD COUNT 12.3 K/mm3 (4.0-10.0)
[2020-04-08 07:28] LABS: BILIRUBIN,TOTAL 1.2 mg/dL (0.2-1); BLOOD UREA NITROGEN 20.4 mg/dL (7-18); CALCIUM 8.8 mg/dL (8.5-10.1); CREATININE 1.4 mg/dL (0.55-1.3); POTASSIUM 3.6 mmol/L (3.5-5.1)
[2020-04-08] MEDS: HYDROCHLOROTHIAZIDE 25 MG TABLET (FP) PO SCH (10:54)
[2020-04-08] MEDS: ASPIRIN COATED 81 MG TABLET.EC PO SCH (10:54)
[2020-04-08] MEDS: amLODIPine BESYLATE 10 MG TABLET (FP) PO SCH (10:54)
[2020-04-08] MEDS: MULTIVITAMINS THER W-MINERALS COMBO TABLET (FP) PO SCH (10:54)
[2020-04-08] MEDS: PANTOPRAZOLE 40 MG TABLET PO SCH (10:54)
[2020-04-08] MEDS: RANOLAZINE E.R. 500 MG TABLET (FP) PO SCH ×2 (10:54→21:02)
[2020-04-08] MEDS: CLOPIDOGREL BISULFATE 75 MG TABLET (FP) PO SCH (10:54)
[2020-04-08] MEDS: D5-1/2NS+10 MEQ KCL - 10 MEQ/1,000 ML INFUS.BAG IV SCH (21:00)
[2020-04-08] MEDS: ATORVASTATIN CA 80 MG TABLET (FP) PO SCH (21:02)
--- NOTE | 2020-04-09 02:22 | PN ---
Progress Note, Physician Chief Complaint: Patient seen and examined at the bedside, no acute events from last night, no dizziness or chest pain. History of Present Illness: This 89 yr old w/m with PMH of HTN, percarditis, [place] x3, CAD, HLD, CVA, PAD, BPH admitted via ER with an acute syncope and collapse, unwitnessed fall, concussion unsp with brief LOC. - Current Medication List Current Medications: Active Medications Amlodipine Besylate (Norvasc -) 10 mg PO DAILY [facility] Last Admin: 04/08/20 10:54 Dose: 10 mg Documented by: Aspirin (Ecotrin -) 81 mg PO DAILY [facility] Last Admin: 04/08/20 10:54 Dose: 81 mg Documented by: Atorvastatin Calcium (Lipitor -) 80 mg PO HS [facility] Last Admin: 04/08/20 21:02 Dose: 80 mg Documented by: Clopidogrel Bisulfate (Plavix -) 75 mg PO DAILY [facility] Last Admin: 04/08/20 10:54 Dose: 75 mg Documented by: Hydrochlorothiazide (Hctz -) 25 mg PO DAILY [facility] Last Admin: 04/08/20 10:54 Dose: 25 mg Documented by: Potassium Chloride/Dextrose/Sod Cl (D5-1/2ns+10 Meq Kcl -) 10 meq in 1,000 mls @ 50 mls/hr IV ASDIR [facility] Last Admin: 04/08/20 21:00 Dose: Not Given Documented by: Multivitamins/Minerals (Theragran-M) 1 each PO DAILY [facility] Last Admin: 04/08/20 10:54 Dose: 1 each Documented by: Nitroglycerin (Nitrostat -) 0.4 mg SL Q5M PRN PRN Reason: FOR CHEST PAIN Pantoprazole Sodium (Protonix -) 40 mg PO DAILY [facility] Last Admin: 04/08/20 10:54 Dose: 40 mg Documented by: Ranolazine (Ranexa -) 500 mg PO BID [facility] Last Admin: 04/08/20 21:02 Dose: 500 mg Documented by: - Objective Vital Signs: Vital Signs Temperature 98.0 F 04/09/20 01:57 Pulse Rate 78 04/09/20 01:57 Respiratory Rate 18 04/09/20 01:57 Blood Pressure 127/56 L 04/09/20 01:57 O2 Sat by Pulse Oximetry (%) 98 04/09/20 01:57 Constitutional: Yes: Well Nourished, No Distress, Calm Eyes: Yes: Conjunctiva Clear, EOM Intact HENT: Yes: Atraumatic, Normocephalic Neck: Yes: Supple, Trachea Midline Cardiovascular: Yes: Regular Rate and Rhythm Respiratory: Yes: Regular, CTA Bilaterally Gastrointestinal: Yes: Normal Bowel Sounds, Soft ...Rectal Exam: Yes: Deferred Genitourinary: Yes: WNL Breast(s): Yes: WNL Musculoskeletal: Yes: Muscle Weakness Extremities: Yes: WNL Edema: No Peripheral Pulses WNL: Yes Integumentary: Yes: WNL Neurological: Yes: Alert, Oriented, Weakness ...Motor Strength: LLE (muscle weakness), RLE (muscle weakness) Psychiatric: Yes: Alert Labs: CBC, BMP 04/08/20 05:56 04/08/20 05:56 INR, PTT INR 0.96 (0.83-1.09) 04/06/20 11:15 Problem List - Problems (1) Syncope and collapse Code(s): R55 - SYNCOPE AND COLLAPSE (2) Concussion with brief LOC Code(s): S06.0X9A - CONCUSSION W LOSS OF CONSCIOUSNESS OF UNSP DURATION, INIT (3) Hypertension Code(s): I10 - ESSENTIAL (PRIMARY) HYPERTENSION (4) Coronary artery disease Code(s): I25.10 - ATHSCL HEART DISEASE OF [place] CORONARY ARTERY W/O ANG PCTRS (5) BPH (benign prostatic hyperplasia) Code(s): N40.0 - BENIGN PROSTATIC HYPERPLASIA WITHOUT LOWER URINRY TRACT SYMP (6) GERD (gastroesophageal reflux disease) Code(s): K21.9 - GASTRO-ESOPHAGEAL REFLUX DISEASE WITHOUT ESOPHAGITIS (7) Old myocardial infarction Code(s): I25.2 - OLD MYOCARDIAL INFARCTION (8) Hyperlipidemia Code(s): E78.5 - HYPERLIPIDEMIA, UNSPECIFIED (9) Chronic arterial ischemic stroke Code(s): I69.30 - UNSPECIFIED SEQUELAE OF CEREBRAL INFARCTION (10) History of hydrocelectomy Code(s): Z98.890 - OTHER SPECIFIED POSTPROCEDURAL STATES Assessment/Plan Assessment/plan: acute syncope and collapse, unwitnessed fall, concussion unsp with brief LOC, elevated troponin level, HTN, pericarditis, [place] X3, CAD, BPH, PAD, CVA, HLD; a/c with Clopidogrel and aspirin (DAPT) and oral pantoprazole for DVT/GI prophylaxis; CK-MB trending down; amlodipine and ranexa for CAD; atorvastatin for HLD; physical therapy for deconditioning; oxygen 3L/min via nasal cannula with spo2 98%; IV fluids for hydration; HCTZ for HTN.
[2020-04-09 08:17] LABS: BASO % 0.3 % (0-2.0); EOS % 2.5 % (0-4.5); HEMATOCRIT 34.2 % (35.4-49); HEMOGLOBIN 11.6 GM/dL (11.7-16.9); LYMPH % 10.4 % (8-40); MCH 30.9 pg (25.7-33.7); MCHC 33.9 g/dl (32.0-35.9); MEAN CELL VOLUME 91.2 fl (80-96); MEAN PLT VOLUME 7.8 fl (7.5-11.1); MONO % 10.5 % (3.8-10.2); NEUT % 76.3 % (42.8-82.8); PLATELET COUNT 177 K/MM3 (134-434); RBC 3.74 M/mm3 (4.00-5.60); RDW 14.8 % (11.9-15.9); WHITE BLOOD COUNT 11.1 K/mm3 (4.0-10.0)
[2020-04-09 08:19] LABS: ALBUMIN 2.7 g/dl (3.4-5.0); BILIRUBIN,TOTAL 1.4 mg/dL (0.2-1); BLOOD UREA NITROGEN 32.5 mg/dL (7-18); CALCIUM 8.9 mg/dL (8.5-10.1); CREATININE 3.3 mg/dL (0.55-1.3); TOT PROT 5.7 g/dl (6.4-8.2)
[2020-04-09] MEDS: amLODIPine BESYLATE 10 MG TABLET (FP) PO SCH (09:11)
[2020-04-09] MEDS: HYDROCHLOROTHIAZIDE 25 MG TABLET (FP) PO SCH (09:11)
[2020-04-09] MEDS: ASPIRIN COATED 81 MG TABLET.EC PO SCH (09:11)
[2020-04-09] MEDS: RANOLAZINE E.R. 500 MG TABLET (FP) PO SCH ×2 (09:12→21:46)
[2020-04-09] MEDS: CLOPIDOGREL BISULFATE 75 MG TABLET (FP) PO SCH (09:12)
[2020-04-09] MEDS: PANTOPRAZOLE 40 MG TABLET PO SCH (09:12)
[2020-04-09] MEDS: MULTIVITAMINS THER W-MINERALS COMBO TABLET (FP) PO SCH (09:12)
--- NOTE | 2020-04-09 09:42 | PN ---
Progress Note, Physician History of Present Illness: Sitting in chair, denies recurrent near or true syncope. No events on telemetry. - Current Medication List Current Medications: Active Medications Amlodipine Besylate (Norvasc -) 10 mg PO DAILY [facility] Last Admin: 04/09/20 09:11 Dose: 10 mg Documented by: Aspirin (Ecotrin -) 81 mg PO DAILY [facility] Last Admin: 04/09/20 09:11 Dose: 81 mg Documented by: Atorvastatin Calcium (Lipitor -) 80 mg PO HS [facility] Last Admin: 04/08/20 21:02 Dose: 80 mg Documented by: Clopidogrel Bisulfate (Plavix -) 75 mg PO DAILY [facility] Last Admin: 04/09/20 09:12 Dose: 75 mg Documented by: Hydrochlorothiazide (Hctz -) 25 mg PO DAILY [facility] Last Admin: 04/09/20 09:11 Dose: 25 mg Documented by: Potassium Chloride/Dextrose/Sod Cl (D5-1/2ns+10 Meq Kcl -) 10 meq in 1,000 mls @ 50 mls/hr IV ASDIR [facility] Last Admin: 04/08/20 21:00 Dose: Not Given Documented by: Multivitamins/Minerals (Theragran-M) 1 each PO DAILY [facility] Last Admin: 04/09/20 09:12 Dose: 1 each Documented by: Nitroglycerin (Nitrostat -) 0.4 mg SL Q5M PRN PRN Reason: FOR CHEST PAIN Pantoprazole Sodium (Protonix -) 40 mg PO DAILY [facility] Last Admin: 04/09/20 09:12 Dose: 40 mg Documented by: Ranolazine (Ranexa -) 500 mg PO BID [facility] Last Admin: 04/09/20 09:12 Dose: 500 mg Documented by: - Objective Vital Signs: Vital Signs Temperature 98.0 F 04/09/20 09:17 Pulse Rate 77 04/09/20 09:17 Respiratory Rate 16 04/09/20 09:17 Blood Pressure 116/60 04/09/20 09:17 O2 Sat by Pulse Oximetry (%) 98 04/09/20 09:17 Constitutional: Yes: No Distress, Calm, Thin Neck: Yes: Supple Cardiovascular: Yes: Regular Rate and Rhythm Respiratory: Yes: Regular, CTA Bilaterally Gastrointestinal: Yes: Normal Bowel Sounds, Soft Edema: No Labs: CBC, BMP 04/09/20 06:22 04/09/20 06:22 INR, PTT INR 0.96 (0.83-1.09) 04/06/20 11:15 - ....Imaging EKG: Report Reviewed (Tele: NSR) Problem List - Problems (1) Acute kidney injury superimposed on CKD Code(s): N17.9 - ACUTE KIDNEY FAILURE, UNSPECIFIED; N18.9 - CHRONIC KIDNEY DISEASE, UNSPECIFIED Assessment/Plan Problem List - Problems (1) BPH (benign prostatic hyperplasia) Code(s): N40.0 - BENIGN PROSTATIC HYPERPLASIA WITHOUT LOWER URINRY TRACT SYMP (2) Chronic arterial ischemic stroke Code(s): I69.30 - UNSPECIFIED SEQUELAE OF CEREBRAL INFARCTION (3) Concussion with brief LOC Code(s): S06.0X9A - CONCUSSION W LOSS OF CONSCIOUSNESS OF UNSP DURATION, INIT (4) Coronary artery disease Code(s): I25.10 - ATHSCL HEART DISEASE OF [place] CORONARY ARTERY W/O ANG PCTRS (5) GERD (gastroesophageal reflux disease) Code(s): K21.9 - GASTRO-ESOPHAGEAL REFLUX DISEASE WITHOUT ESOPHAGITIS (6) History of hydrocelectomy Code(s): Z98.890 - OTHER SPECIFIED POSTPROCEDURAL STATES (7) Hyperlipidemia Code(s): E78.5 - HYPERLIPIDEMIA, UNSPECIFIED (8) Hypertension Code(s): I10 - ESSENTIAL (PRIMARY) HYPERTENSION (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 Post fall, possible syncope 2. CAD h/o ND 3. H/o pericarditis 4. H/o CVA 5. PAD 6. HTN 7. HLD 8. GERD 9. BPH 10. Acute on CKD P:1. Ruled out ND, telemetry monitoring unrevealing thus far 2. Continue Norvasc 10 qd, ASA 81 qd, Lipitor 80 qd, Plavix 75 qd, Ranexa 500 bid, d/c HCTZ and continue IVF with monitor renal recovery and electrolytes 3. PT, gait training as tolerated
[2020-04-09 13:31] LABS: BLOOD UREA NITROGEN 33.4 mg/dL (7-18); CREATININE 3.1 mg/dL (0.55-1.3)
[2020-04-09] MEDS: D5-1/2NS+10 MEQ KCL - 10 MEQ/1,000 ML INFUS.BAG IV SCH (21:45)
[2020-04-09] MEDS: ATORVASTATIN CA 80 MG TABLET (FP) PO SCH (21:46)
[2020-04-10 06:33] LABS: BASO % 0.5 % (0-2.0); EOS % 2.1 % (0-4.5); HEMATOCRIT 31.7 % (35.4-49); HEMOGLOBIN 10.8 GM/dL (11.7-16.9); LYMPH % 12.9 % (8-40); MCH 30.8 pg (25.7-33.7); MCHC 33.9 g/dl (32.0-35.9); MEAN CELL VOLUME 90.8 fl (80-96); MEAN PLT VOLUME 8.1 fl (7.5-11.1); MONO % 12.6 % (3.8-10.2); NEUT % 71.9 % (42.8-82.8); PLATELET COUNT 142 K/MM3 (134-434); RBC 3.49 M/mm3 (4.00-5.60); RDW 14.9 % (11.9-15.9); WHITE BLOOD COUNT 11.7 K/mm3 (4.0-10.0)
[2020-04-10 06:50] LABS: ALBUMIN 2.5 g/dl (3.4-5.0); BILIRUBIN,TOTAL 0.9 mg/dL (0.2-1); BLOOD UREA NITROGEN 55.5 mg/dL (7-18); CALCIUM 8.6 mg/dL (8.5-10.1); CREATININE 4.5 mg/dL (0.55-1.3); POTASSIUM 4.1 mmol/L (3.5-5.1); TOT PROT 5.6 g/dl (6.4-8.2)
--- NOTE | 2020-04-10 08:53 | PN ---
Progress Note, Physician Chief Complaint: Patient seen and examined at the bedside, no acute events from last night, no chest pain or labored breathing. History of Present Illness: This 89 yr old w/m with PMH of HTN, HLD, pericarditis, CAD, s/p PCI, PAD, CVA, BPH admitted via ER with an acute syncope and collapse, unwitness fall, concussion with brief LOC. - Current Medication List Current Medications: Active Medications Amlodipine Besylate (Norvasc -) 10 mg PO DAILY [facility] Last Admin: 04/09/20 09:11 Dose: 10 mg Documented by: Aspirin (Ecotrin -) 81 mg PO DAILY [facility] Last Admin: 04/09/20 09:11 Dose: 81 mg Documented by: Atorvastatin Calcium (Lipitor -) 80 mg PO HS [facility] Last Admin: 04/09/20 21:46 Dose: 80 mg Documented by: Clopidogrel Bisulfate (Plavix -) 75 mg PO DAILY [facility] Last Admin: 04/09/20 09:12 Dose: 75 mg Documented by: Potassium Chloride/Dextrose/Sod Cl (D5-1/2ns+10 Meq Kcl -) 10 meq in 1,000 mls @ 50 mls/hr IV ASDIR [facility] Last Admin: 04/09/20 21:45 Dose: Not Given Documented by: Multivitamins/Minerals (Theragran-M) 1 each PO DAILY [facility] Last Admin: 04/09/20 09:12 Dose: 1 each Documented by: Nitroglycerin (Nitrostat -) 0.4 mg SL Q5M PRN PRN Reason: FOR CHEST PAIN Pantoprazole Sodium (Protonix -) 40 mg PO DAILY [facility] Last Admin: 04/09/20 09:12 Dose: 40 mg Documented by: Ranolazine (Ranexa -) 500 mg PO BID [facility] Last Admin: 04/09/20 21:46 Dose: 500 mg Documented by: - Objective Vital Signs: Vital Signs Temperature 97.8 F 04/10/20 06:00 Pulse Rate 74 04/10/20 06:00 Respiratory Rate 16 04/10/20 06:00 Blood Pressure 123/57 L 04/10/20 06:00 O2 Sat by Pulse Oximetry (%) 99 04/10/20 06:00 Labs: CBC, BMP 04/10/20 05:48 04/10/20 05:48 INR, PTT INR 0.96 (0.83-1.09) 04/06/20 11:15 Problem List - Problems (1) Syncope and collapse Code(s): R55 - SYNCOPE AND COLLAPSE (2) Concussion with brief LOC Code(s): S06.0X9A - CONCUSSION W LOSS OF CONSCIOUSNESS OF UNSP DURATION, INIT (3) Hypertension Code(s): I10 - ESSENTIAL (PRIMARY) HYPERTENSION (4) Coronary artery disease Code(s): I25.10 - ATHSCL HEART DISEASE OF [place] CORONARY ARTERY W/O ANG PCTRS (5) BPH (benign prostatic hyperplasia) Code(s): N40.0 - BENIGN PROSTATIC HYPERPLASIA WITHOUT LOWER URINRY TRACT SYMP (6) GERD (gastroesophageal reflux disease) Code(s): K21.9 - GASTRO-ESOPHAGEAL REFLUX DISEASE WITHOUT ESOPHAGITIS (7) Old myocardial infarction Code(s): I25.2 - OLD MYOCARDIAL INFARCTION (8) Hyperlipidemia Code(s): E78.5 - HYPERLIPIDEMIA, UNSPECIFIED (9) Chronic arterial ischemic stroke Code(s): I69.30 - UNSPECIFIED SEQUELAE OF CEREBRAL INFARCTION (10) History of hydrocelectomy Code(s): Z98.890 - OTHER SPECIFIED POSTPROCEDURAL STATES
[2020-04-10] MEDS: RANOLAZINE E.R. 500 MG TABLET (FP) PO SCH (09:13)
[2020-04-10] MEDS: ASPIRIN COATED 81 MG TABLET.EC PO SCH (09:14)
[2020-04-10] MEDS: MULTIVITAMINS THER W-MINERALS COMBO TABLET (FP) PO SCH (09:14)
[2020-04-10] MEDS: PANTOPRAZOLE 40 MG TABLET PO SCH (09:14)
[2020-04-10] MEDS: CLOPIDOGREL BISULFATE 75 MG TABLET (FP) PO SCH (09:14)
[2020-04-10] MEDS: amLODIPine BESYLATE 10 MG TABLET (FP) PO SCH (09:14)
--- NOTE | 2020-04-10 09:15 | PN ---
Progress Note, Physician History of Present Illness: Sitting in chair, denies recurrent near or true syncope. No events on telemetry. Feels weak. - Current Medication List Current Medications: Active Medications Amlodipine Besylate (Norvasc -) 10 mg PO DAILY [facility] Last Admin: 04/10/20 09:14 Dose: 10 mg Documented by: Aspirin (Ecotrin -) 81 mg PO DAILY [facility] Last Admin: 04/10/20 09:14 Dose: 81 mg Documented by: Atorvastatin Calcium (Lipitor -) 80 mg PO HS [facility] Last Admin: 04/09/20 21:46 Dose: 80 mg Documented by: Clopidogrel Bisulfate (Plavix -) 75 mg PO DAILY [facility] Last Admin: 04/10/20 09:14 Dose: 75 mg Documented by: Potassium Chloride/Dextrose/Sod Cl (D5-1/2ns+10 Meq Kcl -) 10 meq in 1,000 mls @ 50 mls/hr IV ASDIR [facility] Last Admin: 04/09/20 21:45 Dose: Not Given Documented by: Multivitamins/Minerals (Theragran-M) 1 each PO DAILY [facility] Last Admin: 04/10/20 09:14 Dose: 1 each Documented by: Nitroglycerin (Nitrostat -) 0.4 mg SL Q5M PRN PRN Reason: FOR CHEST PAIN Pantoprazole Sodium (Protonix -) 40 mg PO DAILY [facility] Last Admin: 04/10/20 09:14 Dose: 40 mg Documented by: Ranolazine (Ranexa -) 500 mg PO BID [facility] Last Admin: 04/10/20 09:13 Dose: 500 mg Documented by: - Objective Vital Signs: Vital Signs Temperature 98.3 F 04/10/20 09:11 Pulse Rate 74 04/10/20 09:11 Respiratory Rate 20 04/10/20 09:11 Blood Pressure 135/68 04/10/20 09:11 O2 Sat by Pulse Oximetry (%) 98 04/10/20 09:11 Constitutional: Yes: No Distress, Calm, Thin Neck: Yes: Supple Cardiovascular: Yes: Regular Rate and Rhythm Respiratory: Yes: Regular, CTA Bilaterally, On Nasal O2 Gastrointestinal: Yes: Soft, Hypoactive Bowel Sounds Edema: No Labs: CBC, BMP 04/10/20 05:48 04/10/20 05:48 INR, PTT INR 0.96 (0.83-1.09) 04/06/20 11:15 - ....Imaging EKG: Report Reviewed (Tele: NSR) Problem List - Problems (1) Acute kidney injury superimposed on CKD Code(s): N17.9 - ACUTE KIDNEY FAILURE, UNSPECIFIED; N18.9 - CHRONIC KIDNEY DISEASE, UNSPECIFIED Assessment/Plan Problem List - Problems (1) BPH (benign prostatic hyperplasia) Code(s): N40.0 - BENIGN PROSTATIC HYPERPLASIA WITHOUT LOWER URINRY TRACT SYMP (2) Chronic arterial ischemic stroke Code(s): I69.30 - UNSPECIFIED SEQUELAE OF CEREBRAL INFARCTION (3) Concussion with brief LOC Code(s): S06.0X9A - CONCUSSION W LOSS OF CONSCIOUSNESS OF UNSP DURATION, INIT (4) Coronary artery disease Code(s): I25.10 - ATHSCL HEART DISEASE OF [place] CORONARY ARTERY W/O ANG PCTRS (5) GERD (gastroesophageal reflux disease) Code(s): K21.9 - GASTRO-ESOPHAGEAL REFLUX DISEASE WITHOUT ESOPHAGITIS (6) History of hydrocelectomy Code(s): Z98.890 - OTHER SPECIFIED POSTPROCEDURAL STATES (7) Hyperlipidemia Code(s): E78.5 - HYPERLIPIDEMIA, UNSPECIFIED (8) Hypertension Code(s): I10 - ESSENTIAL (PRIMARY) HYPERTENSION (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 Post fall, possible syncope 2. CAD h/o OK 3. H/o pericarditis 4. H/o CVA 5. PAD 6. HTN 7. HLD 8. GERD 9. BPH 10. Acute on CKD P:1. Ruled out OK, telemetry monitoring unrevealing thus far 2. Continue Norvasc 10 qd, ASA 81 qd, Lipitor 80 qd, Plavix 75 qd, Ranexa 500 bid, d/kathie HCTZ and continue hydration with monitor renal recovery and electrolytes, renal f/u 3. PT, gait training as tolerated
--- NOTE | 2020-04-10 09:29 | DS ---
Physical Examination Vital Signs: Vital Signs Temperature 98.3 F 04/10/20 09:11 Pulse Rate 74 04/10/20 09:11 Respiratory Rate 20 04/10/20 09:11 Blood Pressure 135/68 04/10/20 09:11 O2 Sat by Pulse Oximetry (%) 98 04/10/20 09:11 Constitutional: Yes: Well Nourished, No Distress, Calm Eyes: Yes: Conjunctiva Clear, EOM Intact HENT: Yes: Atraumatic, Normocephalic Neck: Yes: Supple, Trachea Midline Cardiovascular: Yes: Regular Rate and Rhythm Respiratory: Yes: Regular, CTA Bilaterally Gastrointestinal: Yes: Normal Bowel Sounds, Soft ...Rectal Exam: Yes: Deferred Renal/: Yes: Other (renal failure) Breast(s): Yes: WNL Musculoskeletal: Yes: Muscle Weakness Extremities: Yes: WNL Edema: No Peripheral Pulses WNL: Yes Integumentary: Yes: WNL Neurological: Yes: Alert, Oriented, Weakness ...Motor Strength: LLE (muscle weakness), RLE (muscle weakness) Psychiatric: Yes: Alert, Oriented Labs: CBC, BMP 04/10/20 05:48 04/10/20 05:48 Discharge Summary Problems reviewed: Yes Reason For Visit: SYNCOPE Current Active Problems Acute kidney injury superimposed on CKD (Acute) BPH (benign prostatic hyperplasia) (Acute) Chronic arterial ischemic stroke (Acute) Concussion with brief LOC (Acute) Coronary artery disease (Acute) GERD (gastroesophageal reflux disease) (Acute) History of hydrocelectomy (Acute) Hyperlipidemia (Acute) Hypertension (Acute) Old myocardial infarction (Acute) Syncope and collapse (Acute) Condition: Guarded - Instructions Diet, Activity, Other Instructions: Continue present meds. Activity as tolerated. Physical therapy. Oxygen 3L/min via nasal cannula. Follow up with Dr. Turner for renal failure. Follow with Dr. Lacey within one week. Total time spent over 30 minutes. Referrals: Saad Lacey [Primary Care Provider] - - Home Medications Comprehensive Discharge Medication List: Ambulatory Orders Amlodipine Besylate [Norvasc -] 10 mg PO DAILY 04/06/20 Aspirin [ASA -] 81 mg PO DAILY 04/06/20 Atorvastatin Ca [Lipitor] 80 mg PO HS 04/06/20 Clopidogrel Bisulfate [Plavix] 75 mg PO DAILY 04/06/20 Hydrochlorothiazide [Hctz -] 25 mg PO DAILY 04/06/20 Multivit-Min/FA/Lycopen/Lutein [Centrum Silver Tablet] 1 each PO DAILY 04/06/20 Nitroglycerin 0.4 mg SL PRN 04/06/20 Ranolazine [Ranexa] 500 mg PO BID 04/06/20 Saw [place] Fruit/Zinc Picoli [Saw [place] Capsule] 1 each PO DAILY 04/06/20
[2020-04-10] MEDS: D5-1/2NS+10 MEQ KCL - 10 MEQ/1,000 ML INFUS.BAG IV SCH (12:26)
[2020-04-10 14:49] VITALS: PULSE 71
[2020-04-10 18:04] VITALS: BP 126/56; TEMP 97.9
== END 2020-04-10 18:00 | disposition home or self-care (01) | DRG 89 ==
LOC: JER 10:46 → JERBED 13:12 → J4S 04-07 14:47
PROVIDERS: ADMIT Internal Medicine; ATTEND Internal Medicine
DX: S06.0X9A Concussion with loss of consciousness of unspecified duration, initial encounter (principal); N17.9 Acute kidney failure, unspecified; R55 Syncope and collapse; K21.9 Gastro-esophageal reflux disease without esophagitis; I25.119 Atherosclerotic heart disease of native coronary artery with unspecified angina pectoris; E78.5 Hyperlipidemia, unspecified; E86.0 Dehydration; I25.2 Old myocardial infarction; I73.9 Peripheral vascular disease, unspecified; K57.90 Diverticulosis of intestine, part unspecified, without perforation or abscess without bleeding; Z98.890 Other specified postprocedural states; W18.39XA Other fall on same level, initial encounter; Y92.098 Other place in other non-institutional residence as the place of occurrence of the external cause; Z86.73 Personal history of transient ischemic attack (TIA), and cerebral infarction without residual deficits; Z95.5 Presence of coronary angioplasty implant and graft
CPT/HCPCS: 36415; 70450-TC; 71045-TC-FY; 71101-TC-RT-FY; 72125-TC; 73523-TC-FY; 80053; 81003; 82550; 82553; 82565; 82962; 84484; 84520; 85025; 85610; 85730; 93005; 93010; 93880-TC; 94761; 97116-GP; 97162-GP; 99285-25; U0003

== ENCOUNTER 2020-04-25 03:06 | Inpatient (IN) | payer OTHER ==
--- NOTE | 2020-04-25 03:14 | PDOC ---
History of Present Illness - General Stated Complaint: TOE PAIN Time Seen by Provider: 04/25/20 03:11 - History of Present Illness Initial Comments: HPI: 04/25/20 03:13 89 yo M PMH HTN, HLD, [place] x3 (2004), pericarditis, CVA, PAD, GERD, BPH, and left hydrocelectomy (2014), presenting after fall. Notably, was recently admitted 04/06/20-04/10/20 with concern for syncope and collapse, ultimately had negative workup. Today, had a fall around 1400 because his right leg "gave out". No head trauma or LOC, remembers the whole thing. However, since the fall he has developed worsening pain around both of his big toes. Also now noticing that his legs have been swelling, unsure over what time period this has occurred. Notably, has been eating less than usual and not having bowel movements for approximately 2 weeks. Attributes this to decreased appetite. PMD: Arsenio ROS: GENERAL/CONSTITUTIONAL: endorses loss of appetite. Denies fever, chills, diaphoresis, generalized weakness HEAD, EYES, EARS, NOSE AND THROAT: denies rhinorrhea, nasal congestion, throat pain, throat swelling, difficulty swallowing NEUROLOGIC: denies headache, focal weakness, dizziness, unsteady gait, mental status changes CARDIOVASCULAR: endorses peripheral edema. Denies chest pain, syncope, palpitations, irregular heart rate, lightheadedness RESPIRATORY: denies cough, shortness of breath, dyspnea with exertion, orthopnea, wheezing, stridor, hemoptysis GASTROINTESTINAL: endorses abdominal distension, nausea, and constipation. Denies abdominal pain, vomiting, diarrhea, melena, hematochezia GENITOURINARY: endorses urinary retention. Denies dysuria, frequency, urgency MUSCULOSKELETAL: endorses b/l big toe pain. Denies myalgia, arthralgia, joint swelling, back pain, neck pain SKIN: denies rash, itching, pallor HEMATOLOGIC/IMMUNOLOGIC: denies easy bleeding, easy bruising, lymphadenopathy, frequent infections ENDOCRINE: denies unexplained weight gain, unexplained weight loss, heat intolerance, cold intolerance PSYCHIATRIC: denies anxiety, depression, suicidal or homicidal ideation, hallucinations PE: Gen: well-developed, well-nourished, NAD Neuro: AAOX4, CN II-XII intact HEENT: atraumatic, normocephalic Neck: trachea midline, supple CV: regular rate, regular rhythm, no murmurs, rubs, or gallops Pulm: CTA b/l, no wheezing Abd: hard, protuberant and distended MSK: full ROM, intact pulses Extr: 2+ pitting edema to the knees, significant swelling in both feet, onychomycosis of toes, no deformities Skin: warm, dry MDM: Concern for obstruction v mass v CHF exacerbation. Less concern about toe pain. - CBC, CMP - EKG, CXR - PT/PTT - cardiac profile - BNP - Head CT, cervical CT - Duplex US b/l LE - COVID - Ofirmev - plan for CT abd/pelvis pending Cr 04/25/20 04:43 Now complaining of nausea, will give Zofran. EKG normal sinus at 82 bpm, MN 172, QRS 102, QTc 425. Notched QRS in leads II and III. No peaked T waves or ST segment changes. 04/25/20 04:55 K 5.7, Cr 5.5. Cr 4.5 during recent admission. Will give insulin 6 units with D50, get CT abd/pelvis w/o contrast. BNP 1100. 04/25/20 05:[address] scan, dry read with large mass off the transverse colon. Will await official read. 04/25/20 06:33 Patient complaining of ongoing pain, will give 4mg morphine. 04/25/20 06:56 CT head and neck without acute abnormality. CT abd/pelvis with massive bladder. Will place Reed, admit. Past History - Medical History Allergies/Adverse Reactions: Allergies Allergy/AdvReac Type Severity Reaction Status Date / Time Beta-Blockers Allergy Verified 04/25/20 07:10 (Beta-Adrenergic Bloc morphine Allergy Verified 04/25/20 07:10 tamsulosin [From Flomax] Allergy Verified 04/25/20 07:10 Home Medications: Ambulatory Orders Amlodipine Besylate [Norvasc -] 10 mg PO DAILY 04/06/20 Aspirin [ASA -] 81 mg PO DAILY 04/06/20 Atorvastatin Ca [Lipitor] 80 mg PO HS 04/06/20 Clopidogrel Bisulfate [Plavix] 75 mg PO DAILY 04/06/20 Multivit-Min/FA/Lycopen/Lutein [Centrum Silver Tablet] 1 each PO DAILY 04/06/20 Nitroglycerin 0.4 mg SL PRN 04/06/20 Ranolazine [Ranexa] 500 mg PO BID 04/06/20 [place] Fruit/Zinc Picoli [[place] 450 mg Capsule] 1 each PO DAILY 04/06/20 Amlodipine Besylate [Norvasc -] 10 mg PO DAILY tablet 04/10/20 Aspirin Coated [Ecotrin -] 81 mg PO DAILY tablet.ec 04/10/20 Atorvastatin Ca [Lipitor] 80 mg PO HS tablet 04/10/20 Clopidogrel Bisulfate [Plavix -] 75 mg PO DAILY tablet 04/10/20 Nitroglycerin Sublingual [Nitrostat -] 0.4 mg SL Q5M PRN tab 04/10/20 Pantoprazole Sodium [Protonix -] 40 mg PO DAILY tablet.ec 04/10/20 Ranolazine [Ranexa -] 500 mg PO BID tab 04/10/20 Anemia: No Asthma: No Cancer: No Cardiac Disorders: (stent) CVA: Yes COPD: No CHF: No Dementia: No Diabetes: No GI Disorders: Yes (reflux) Disorders: No HTN: Yes Hypercholesterolemia: Yes Liver Disease: No Seizures: No Thyroid Disease: No - Surgical History Abdominal Surgery: No Appendectomy: No Cardiac Surgery: (stent x3) Cholecystectomy: No Lung Surgery: No Neurologic Surgery: No Orthopedic Surgery: No - Immunization History Immunization Up to Date: No - Psycho-Social/Smoking History Smoking History: Former smoker Have you smoked in the past 12 months: No ED Treatment Course - LABORATORY CBC & Chemistry Diagram: 04/26/20 06:43 04/26/20 06:43 Discharge - Discharge Information Problems reviewed: Yes Clinical Impression/Diagnosis: Urinary retention, Acute kidney injury superimposed on CKD - Admission Yes - Follow up/Referral - Patient Discharge Instructions - Post Discharge Activity
--- OUTSIDE RECORDS SUMMARY | 2020-04-25 03:33 | XMS ---
:1930 Author Organization [facility] Support Name Relationship Address Phone RE, RETIRED Unavailable Unavailable Unavailable RE Unavailable Unavailable Unavailable WARNER THURSTON FRIEND [address] [place] [address] WARNER THURSTON Other [address] [place] [id number] Re-disclosure Warning The records that you are about to access may contain information from federally- assisted alcohol or drug abuse programs. If such information is present, then the following federally mandated warning applies: This information has been disclosed to you from records protected by federal confidentiality rules (42 CFR part 2). The federal rules prohibit you from making any further disclosure of this information unless further disclosure is expressly permitted by the written consent of the person to whom it pertains or as otherwise permitted by 42 CFR part 2. A general authorization for the release of medical or other information is NOT sufficient for this purpose. The Federal rules restrict any use of the information to criminally investigate or prosecute any alcohol or drug abuse patient.The records that you are about to access may contain highly sensitive health information, the redisclosure of which is protected by Article 27-F of the [facility] Public Health law. If you continue you may haveaccess to information: Regarding HIV / AIDS; Provided by facilities licensed or operated by the [facility] Office of Mental Health; or Provided by the [facility] Office for People With Developmental Disabilities. If such information is present, then the following [facility] mandated warning applies: This information has been disclosed to you from confidential records which are protected by state law. State law prohibits you from making any further disclosure of this information without the specific written consent of the person to whom it pertains, or as otherwise permitted by law. Any unauthorized further disclosure in violation of state law may result in a fine or mcfp sentence or both. A general authorization for the release of medical or other information is NOT sufficient authorization for further disclosure. Insurance Providers Payer name Policy type Policy ID Covered Covered alliance party's Policy P indu / Coverage alliance party ID relationship to [place] Inf ormation type cam[place] MEDICAID [id number] SP [id number] MEDICARE [id number] SP [id number] Results ID Date Data Source [id number] 04/06/2020 04:20:00 PM EDT [facility] Name Value Range Interpretation Description Data Sup porting Code Source(s) Document(s ) SARS [facility] coronavirus 2 RNA This lab was ordered by [facility] and reported by [facility]. ID Date Data Source [id number] 12/26/2019 12:00:00 AM EDT [facility] Name Value Range Interpretation Code Description Data Sarah rce(s) Supporting Document(s ) SARS-COV-2 [facility] QL SUSAN+PROBE This lab was ordered by [facility] and reported by [facility]. Procedure
--- NOTE | 2020-04-25 03:37 | PDOC ---
History of Present Illness - General Chief Complaint: Pain, Acute Stated Complaint: TOE PAIN Time Seen by Provider: 04/25/20 03:11 Past History - Medical History Allergies/Adverse Reactions: Allergies Allergy/AdvReac Type Severity Reaction Status Date / Time Beta-Blockers Allergy Verified 04/25/20 03:20 (Beta-Adrenergic Bloc morphine Allergy Verified 04/25/20 03:20 tamsulosin [From Flomax] Allergy Verified 04/25/20 03:20 Home Medications: Ambulatory Orders Amlodipine Besylate [Norvasc -] 10 mg PO DAILY 04/06/20 Aspirin [ASA -] 81 mg PO DAILY 04/06/20 Atorvastatin Ca [Lipitor] 80 mg PO HS 04/06/20 Clopidogrel Bisulfate [Plavix] 75 mg PO DAILY 04/06/20 Multivit-Min/FA/Lycopen/Lutein [Centrum Silver Tablet] 1 each PO DAILY 04/06/20 Nitroglycerin 0.4 mg SL PRN 04/06/20 Ranolazine [Ranexa] 500 mg PO BID 04/06/20 Saw [place] Fruit/Zinc Picoli [Saw [place] 450 mg Capsule] 1 each PO DAILY 04/06/20 Amlodipine Besylate [Norvasc -] 10 mg PO DAILY tablet 04/10/20 Aspirin Coated [Ecotrin -] 81 mg PO DAILY tablet.ec 04/10/20 Atorvastatin Ca [Lipitor] 80 mg PO HS tablet 04/10/20 Clopidogrel Bisulfate [Plavix -] 75 mg PO DAILY tablet 04/10/20 Nitroglycerin Sublingual [Nitrostat -] 0.4 mg SL Q5M PRN tab 04/10/20 Pantoprazole Sodium [Protonix -] 40 mg PO DAILY tablet.ec 04/10/20 Ranolazine [Ranexa -] 500 mg PO BID tab 04/10/20 Anemia: No Asthma: No Cancer: No Cardiac Disorders: (stent) CVA: Yes COPD: No CHF: No Dementia: No Diabetes: No GI Disorders: Yes (reflux) Disorders: No HTN: Yes Hypercholesterolemia: Yes Liver Disease: No Seizures: No Thyroid Disease: No - Surgical History Abdominal Surgery: No Appendectomy: No Cardiac Surgery: (stent x3) Cholecystectomy: No Lung Surgery: No Neurologic Surgery: No Orthopedic Surgery: No - Immunization History Immunization Up to Date: No - Psycho-Social/Smoking History Smoking History: Never smoked Have you smoked in the past 12 months: No Information on smoking cessation initiated: No - Substance Abuse Hx (Audit-C & DAST Scrn) How often the patient has a drink containing alcohol: Never Score: In Men: 4 or > Positive; In Women: 3 or > Positive: 0 Screen Result (Pos requires Nsg. Audit-10AR): Negative In the last yr the pt used illegal drug/Rx for NonMed reason: No Score: Yes response is considered Positive: 0 Screen Result (Positive result requires Nsg. DAST-10): Negative *Physical Exam - Vital Signs Last Vital Signs Temp Pulse Resp BP Pulse Ox 98.5 F 85 18 159/94 100 04/25/20 03:23 04/25/20 03:21 04/25/20 03:21 04/25/20 03:21 04/25/20 03:21
[2020-04-25 04:19] LABS: BASO % 0.8 % (0-2.0); EOS % 0.5 % (0-4.5); HEMOGLOBIN 9.9 GM/dL (11.7-16.9); LYMPH % 8.7 % (8-40); MCH 31.1 pg (25.7-33.7); MCHC 34.1 g/dl (32.0-35.9); MEAN CELL VOLUME 91.4 fl (80-96); MEAN PLT VOLUME 7.3 fl (7.5-11.1); MONO % 8.6 % (3.8-10.2); NEUT % 81.4 % (42.8-82.8); PLATELET COUNT 277 K/MM3 (134-434); RBC 3.17 M/mm3 (4.00-5.60); RDW 14.2 % (11.9-15.9); WHITE BLOOD COUNT 12.9 K/mm3 (4.0-10.0)
[2020-04-25 04:38] LABS: INR 1.07 (0.83-1.09); PROTHROMBIN TIME (PATIENT) 12.6 SEC (9.7-13.0)
[2020-04-25 04:40] LABS: ACTIVATED PTT 30.1 SECONDS (25.2-36.5)
[2020-04-25 04:41] LABS: BLOOD UREA NITROGEN 95.5 mg/dL (7-18); CREATININE 5.5 mg/dL (0.55-1.3); POTASSIUM 5.7 mmol/L (3.5-5.1)
[2020-04-25 04:42] LABS: N-TERMINAL BNP 1171.9 pg/ml (5-450)
[2020-04-25] MEDS ORDERED: ONDANSETRON 4 MG/2 ML VIAL IVPUSH ONE (04:44)
[2020-04-25 04:45] LABS: BILIRUBIN,TOTAL 0.2 mg/dL (0.2-1)
[2020-04-25] MEDS ORDERED: ACETAMINOPHEN INJECTION 100 ML IVPB ONE (05:01)
[2020-04-25] MEDS ORDERED: DEXTROSE 50%-WATER - 25 GM/50 ML VIAL IVPUSH ONE (05:02)
[2020-04-25] MEDS ORDERED: ACETAMINOPHEN 1000 MG/100 ML VIAL (NON FORMULARY) IVPB ONE (05:02)
[2020-04-25] MEDS ORDERED: INSULIN REGULAR HUMAN 100 UNITS/ML *VIAL IVPUSH ONE (05:02)
[2020-04-25] MEDS ORDERED: DEXTROSE 50%-WATER 25 GM/50 ML DISP.SYRIN ONE (05:09)
--- NOTE | 2020-04-25 05:11 | PDOC ---
Attending Attestation - Resident Resident Name: SantoroLonniemelani - ED Attending Attestation I have performed the following: I have examined & evaluated the patient, The case was reviewed & discussed with the resident, I agree w/resident's findings & plan, Exceptions are as noted - HPI HPI: 04/25/20 06:20 See resident HPI - Physicial Exam PE: 04/25/20 06:20 Agree with documented exam - Medical Decision Making 04/25/20 06:20 89M recently discharged after negative syncope w/u here after collapsing, not syncopal, not trip/fall, pt states his legs could no longer support his weight Decreased appetite, po, passing gas but no BM, acutely distended abd bowel obstruction? mass? f/u labs, imaging dispo per clinical course, likely admit Discharge - Discharge Information Problems reviewed: Yes Clinical Impression/Diagnosis: Urinary retention, Acute kidney injury superimposed on CKD - Follow up/Referral - Patient Discharge Instructions - Post Discharge Activity
[2020-04-25] MEDS ORDERED: morphine CARPU-JECT 4 MG/1 ML DISP.SYRIN IVPUSH ONE (06:31)
[2020-04-25] MEDS ORDERED: MORPHINE SULFATE 2 MG/ML VIAL ONE (06:34)
--- NOTE | 2020-04-25 07:09 | HP ---
Admitting History and Physical - Admission Chief Complaint: Acute urinary retention and fall History of Present Illness: This 89 yr old w/m with PMH of HTN, HLD, [place] X3, pericardiits, BPH, CKD, PAD, CVA, GERD, left hydrocelectomy admitted via ER with an acute urinary retention (2800ml of urine removed), fall and hyperkalemia. 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 Cardiovascular: Yes: CAD, HTN, Hyperlipdemia, [place] Pulmonary: No: Asthma, Bronchitis, Cancer, COPD, O2 Dependent, Pneumonia, Previously Intubated, Pulmonary Embolus, Pulmonary Fibrosis, Sleep Apnea, Other Gastrointestinal: Yes: GERD Hepatobiliary: No: Cirrhosis, Cholelithiasis, Cholecystitis, Choledocholithiasis, Hepatitis A, Hepatitis B, Hepatitis C, Other Renal/: Yes: BPH Heme/Onc: No: Anemia, B12 Deficiency, Bleeding Disorder, Cancer, Current Chemotherapy, Current Radiation Therapy, Hemochromatosis, Hypercoaguable State, Myeloproliferative Synd, Sickle Cell Disease, Sickle Cell Trait, Thrombo cytopenia, Other Infectious Disease: No: AIDS, C-Diff, Herpes Zoster, HIV, MRSA, STD's, Tuberculosis, VREF, Other Psych: No: Addictions, Anxiety, Bipolar, Depression, Panic, Psychosis, Schizophrenia, Other Musculoskeletal: Yes: Osteoarthritis Rheumatology: No: Fibromyalgia, Gout, Lupus, Rheumatoid Arthritis, Sarcoidosis, Vasculitis, Other ENT: No: Allergic Rhinitis, Sinusitis, Other Endocrine: No: [place]'s Disease, Erwin's Disease, Diabetes Insipidus, Diabetes Mellitus, Hyperparathyroidism, Hyperthyroidism, Hypothyroidism, Osteopenia, SIADH, Other Dermatology: No: Basal Cell, Cellulitis, Eczema, Melanoma, Psoriasis, Squamous Cell, Other - Past Surgical History Past Surgical History: Yes: Cystectomy - Smoking History Smoking history: Former smoker Have you smoked in the past 12 months: No - Social History Usual Living Arrangement: Yes: Other (longterm) Home Medications - Allergies Allergies/Adverse Reactions: Allergies Allergy/AdvReac Type Severity Reaction Status Date / Time Beta-Blockers Allergy Verified 04/25/20 07:10 (Beta-Adrenergic Bloc morphine Allergy Verified 04/25/20 07:10 tamsulosin [From Flomax] Allergy Verified 04/25/20 07:10 - Home Medications Home Medications: Ambulatory Orders Amlodipine Besylate [Norvasc -] 10 mg PO DAILY 04/06/20 Aspirin [ASA -] 81 mg PO DAILY 04/06/20 Atorvastatin Ca [Lipitor] 80 mg PO HS 04/06/20 Clopidogrel Bisulfate [Plavix] 75 mg PO DAILY 04/06/20 Multivit-Min/FA/Lycopen/Lutein [Centrum Silver Tablet] 1 each PO DAILY 04/06/20 Nitroglycerin 0.4 mg SL PRN 04/06/20 Ranolazine [Ranexa] 500 mg PO BID 04/06/20 [place] Fruit/Zinc Picoli [Saw [place] 450 mg Capsule] 1 each PO DAILY 04/06/20 Amlodipine Besylate [Norvasc -] 10 mg PO DAILY tablet 04/10/20 Aspirin Coated [Ecotrin -] 81 mg PO DAILY tablet.ec 04/10/20 Atorvastatin Ca [Lipitor] 80 mg PO HS tablet 04/10/20 Clopidogrel Bisulfate [Plavix -] 75 mg PO DAILY tablet 04/10/20 Nitroglycerin Sublingual [Nitrostat -] 0.4 mg SL Q5M PRN tab 04/10/20 Pantoprazole Sodium [Protonix -] 40 mg PO DAILY tablet.ec 04/10/20 Ranolazine [Ranexa -] 500 mg PO BID tab 04/10/20 Review of Systems - Review of Systems Constitutional: reports: Weakness Eyes: reports: No Symptoms HENT: reports: No Symptoms Neck: reports: No Symptoms Cardiovascular: reports: No Symptoms Respiratory: reports: No Symptoms Gastrointestinal: reports: No Symptoms Genitourinary: reports: Frequency, Incontinence Breasts: reports: No Symptoms Reported Musculoskeletal: reports: Muscle Weakness Integumentary: reports: No Symptoms Neurological: reports: Weakness Endocrine: reports: No Symptoms Hematology/Lymphatic: reports: No Symptoms Psychiatric: reports: No Symptoms Physical Examination Vital Signs: Vital Signs Temperature 98.2 F 04/25/20 06:27 Pulse Rate 76 04/25/20 06:27 Respiratory Rate 17 04/25/20 06:27 Blood Pressure 141/62 04/25/20 06:27 O2 Sat by Pulse Oximetry (%) 100 04/25/20 06:27 Constitutional: Yes: Well Nourished, No Distress, Calm Eyes: Yes: Conjunctiva Clear, EOM Intact HENT: Yes: Atraumatic, Normocephalic Neck: Yes: Supple, Trachea Midline Cardiovascular: Yes: Regular Rate and Rhythm Respiratory: Yes: Regular, CTA Bilaterally Gastrointestinal: Yes: Normal Bowel Sounds, Soft ...Rectal Exam: Yes: Deferred Renal/: Yes: Reed Present, Incontinence Breast(s): Yes: WNL Musculoskeletal: Yes: Muscle Weakness Extremities: Yes: WNL Edema: Yes Edema: LLE: 2+, RLE: 2+ Peripheral Pulses WNL: Yes Integumentary: Yes: WNL Neurological: Yes: Alert, Oriented, Unsteady Gait, Weakness ...Motor Strength: LUE (generalized muscle weakness of all extremities) Psychiatric: Yes: Alert, Oriented Labs: CBC, BMP 04/25/20 04:00 04/25/20 04:00 Imaging - Results Chest X-ray: Report Reviewed Cat Scan: Report Reviewed EKG: Report Reviewed Other: Report Reviewed (lab data reviewed) Problem List - Problems (1) Hyperkalemia Code(s): E87.5 - HYPERKALEMIA (2) Acute kidney injury superimposed on CKD Code(s): N17.9 - ACUTE KIDNEY FAILURE, UNSPECIFIED; N18.9 - CHRONIC KIDNEY DISEASE, UNSPECIFIED (3) Urinary retention Code(s): R33.9 - RETENTION OF URINE, UNSPECIFIED (4) BPH (benign prostatic hyperplasia) Code(s): N40.0 - BENIGN PROSTATIC HYPERPLASIA WITHOUT LOWER URINRY TRACT SYMP (5) Chronic arterial ischemic stroke Code(s): I69.30 - UNSPECIFIED SEQUELAE OF CEREBRAL INFARCTION (6) Concussion with brief LOC Code(s): S06.0X9A - CONCUSSION W LOSS OF CONSCIOUSNESS OF UNSP DURATION, INIT (7) Coronary artery disease Code(s): I25.10 - ATHSCL HEART DISEASE OF [place] CORONARY ARTERY W/O ANG PCTRS (8) GERD (gastroesophageal reflux disease) Code(s): K21.9 - GASTRO-ESOPHAGEAL REFLUX DISEASE WITHOUT ESOPHAGITIS (9) History of hydrocelectomy Code(s): Z98.890 - OTHER SPECIFIED POSTPROCEDURAL STATES (10) Hyperlipidemia Code(s): E78.5 - HYPERLIPIDEMIA, UNSPECIFIED (11) Hypertension Code(s): I10 - ESSENTIAL (PRIMARY) HYPERTENSION (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 Code(s): I25.2 - OLD MYOCARDIAL INFARCTION (13) Syncope and collapse Code(s): R55 - SYNCOPE AND COLLAPSE Assessment/Plan Assessment/plan: acute urinary retention (2800ml of urine removed), hyperkalemia, syncope and collapse, POOJA, BPH, HTN, HLD, [place] X3, PAD, GERD, CKD, CVA, left hydrocelectomy; IV 25gm of 50% glucose and IV regular insulin and oral Kayexalate for hyperkalemia; insert Reed catheter for acute urinary retention; consult to Urology and Nephrology; SCDs aspirin and clopidogrel for DVT prophylaxis; amlodipiine for HTN; Ranexa and NTG for CAD, atorvastatin for HLD.
--- OUTSIDE RECORDS SUMMARY | 2020-04-25 07:14 | XMS ---
:1930 Author Organization [facility] Support Name Relationship Address Phone RE, RETIRED Unavailable Unavailable Unavailable RE Unavailable Unavailable Unavailable WARNER THURSTON FRIEND [address] [place] [address] WARNER THURSTON Other [address] [place] [id number] Re-disclosure Warning The records that you are [...] is protected by Article 27-F of the [place] Public Health law. If you continue you may haveaccess to information: Regarding HIV / AIDS; Provided by facilities licensed or operated by the [place] Office of Mental Health; or Provided by the [place] Office for People With Developmental Disabilities. If such information is present, then the following [place] mandated warning applies: This information has been [...] law may result in a fine or chcf sentence or both. A general authorization for the release of medical or other information is NOT sufficient authorization for further disclosure. Insurance Providers Payer name Policy type Policy ID Covered Covered constitution party's Policy P indu / Coverage constitution party ID relationship to [place] [employer] ormation type [place] MEDICAID [id number] SP [id number] MEDICARE [id number] SP [id number] Results ID Date Data Source [id number] 04/06/2020 04:20:00 PM EDT [facility] Name Value Range Interpretation Description Data Sup porting Code Source(s) Document(s ) SARS [facility] coronavirus 2 RNA This lab was ordered by [facility] and reported by [facility]. ID Date Data Source [id number] 12/26/2019 12:00:00 AM EDT [facility] Name Value Range Interpretation Code Description Data Sarah rce(s) Supporting Document(s ) SARS-COV-2 [facility] QL SUSAN+PROBE This lab was ordered by [facility] and reported by [facility]. Procedure
[2020-04-25 08:03] LABS: BLOOD UREA NITROGEN 92.9 mg/dL (7-18); CALCIUM 9.2 mg/dL (8.5-10.1); CREATININE 5.5 mg/dL (0.55-1.3); POTASSIUM 5.7 mmol/L (3.5-5.1)
[2020-04-25 08:16] LABS: EPI CELLS 1 /uL (0-25.1); HYALINE CASTS 0 /uL (0-3.1); URINE APPEARANCE CLEAR; URINE BACTERIA 7 /uL (0-1359); URINE BILIRUBIN NEGATIVE (NEGATIVE); URINE COLOR YELLOW; URINE GLUCOSE (UA) NEGATIVE (NEGATIVE); URINE KETONE NEGATIVE (NEGATIVE); URINE LEUK ESTERASE TRACE (NEGATIVE); URINE NITRITE NEGATIVE (NEGATIVE); URINE PROTEIN NEGATIVE (NEGATIVE); URINE RBC 33 /uL (0-23.9); URINE UROBILINOGEN 0.2 mg/dL (0.2-1.0); URINE WBC 32 /uL (0-25.8)
[2020-04-25] MEDS ORDERED: NITROGLYCERIN SUBLINGUAL 1/150 0.4 MG TAB SL PRN (08:52)
[2020-04-25] MEDS ORDERED: CLOPIDOGREL BISULFATE 75 MG TABLET (FP) PO SCH (10:00)
[2020-04-25] MEDS ORDERED: amLODIPine BESYLATE 5 MG TABLET (FP) ONE (10:00)
[2020-04-25] MEDS ORDERED: ASPIRIN COATED 81 MG TABLET.EC ONE (10:00)
[2020-04-25] MEDS ORDERED: SODIUM POLYSTYRENE SULFONATE 15 GM/60 ML BOTTLE ONE (10:00)
[2020-04-25] MEDS ORDERED: PT OWN MED DRAWER 7, Y5N ONE (10:01)
[2020-04-25] MEDS ORDERED: SODIUM POLYSTYRENE SULFONATE 15 GM/60 ML BOTTLE PO ONE (10:15)
[2020-04-25] MEDS: MULTIVITAMINS THER W-MINERALS COMBO TABLET (FP) PO SCH (10:20)
[2020-04-25] MEDS: amLODIPine BESYLATE 10 MG TABLET (FP) PO SCH (10:20)
[2020-04-25] MEDS: ASPIRIN COATED 81 MG TABLET.EC PO SCH (10:20)
[2020-04-25] MEDS: RANOLAZINE E.R. 500 MG TABLET (FP) PO SCH ×2 (10:30→22:16)
--- NOTE | 2020-04-25 10:35 | EKG ---
Test Reason : Blood Pressure : / mmHG Vent. Rate : 082 BPM Atrial Rate : 082 BPM P-R Int : 172 ms QRS Dur : 102 ms QT Int : 364 ms P-R-T Axes : 045 044 032 degrees QTc Int : 425 ms NORMAL SINUS RHYTHM NONSPECIFIC INTRAVENTRICULAR CONDUCTION DEFECT WHEN COMPARED WITH ECG OF 06-APR-2020 11:12, PREMATURE SUPRAVENTRICULAR COMPLEXES ARE NO LONGER PRESENT NONSPECIFIC T WAVE ABNORMALITY NO LONGER EVIDENT IN ANTEROLATERAL LEADS Confirmed by GUERITA GOMEZ MD ([id number]) on 04/25/2020 10:35:05 AM Referred By: Confirmed By:GUERITA GOMEZ MD
[2020-04-25] MEDS: ENOXAPARIN NA (PORCINE) 60 MG/0.6 ML DISP.SYRIN SQ SCH (10:37)
[2020-04-25] MEDS ORDERED: SODIUM CHLORIDE 1,000 ML IV SCH (11:45)
--- NOTE | 2020-04-25 13:34 | CONSULT ---
Consult Consult Specialty:: Nephrology Reason for Consultation:: POOJA - History of Present Illness Chief Complaint: s/p fall History of Present Illness: Pt is an 89 year old male with pmhx of htn, hld, cad, mi, pericarditis, cva, pad, gerd and bph who presents to the hospital after a fall. He was found to be in acute renal failure. He had a ct which showed distension and bilateral hydro. A louie was placed and he put out about 2800 cc of urine. He felt better after the louie. He complains of bilateral leg pain. He denies shortness of breath or chest pain. He says that his right leg gave out when he fell. 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 Cardio/Vascular: Yes: CAD, HTN, Hyperlipdemia, [place] Gastrointestinal: Yes: GERD Renal/: Yes: BPH Musculoskeletal: Yes: Osteoarthritis - Past Surgical History Past Surgical History: Yes: Cystectomy - Smoking History Smoking history: Former smoker Have you smoked in the past 12 months: No Home Medications - Allergies Allergies/Adverse Reactions: Allergies Allergy/AdvReac Type Severity Reaction Status Date / Time Beta-Blockers Allergy Verified 04/25/20 07:10 (Beta-Adrenergic Bloc morphine Allergy Verified 04/25/20 07:10 tamsulosin [From Flomax] Allergy Verified 04/25/20 07:10 - Home Medications Home Medications: Ambulatory Orders Amlodipine Besylate [Norvasc -] 10 mg PO DAILY 04/06/20 Aspirin [ASA -] 81 mg PO DAILY 04/06/20 Atorvastatin Ca [Lipitor] 80 mg PO HS 04/06/20 Clopidogrel Bisulfate [Plavix] 75 mg PO DAILY 04/06/20 Multivit-Min/FA/Lycopen/Lutein [Centrum Silver Tablet] 1 each PO DAILY 04/06/20 Nitroglycerin 0.4 mg SL PRN 04/06/20 Ranolazine [Ranexa] 500 mg PO BID 04/06/20 Saw [place] Fruit/Zinc Picoli [Saw [place] 450 mg Capsule] 1 each PO DAILY 04/06/20 Amlodipine Besylate [Norvasc -] 10 mg PO DAILY tablet 04/10/20 Aspirin Coated [Ecotrin -] 81 mg PO DAILY tablet.ec 04/10/20 Atorvastatin Ca [Lipitor] 80 mg PO HS tablet 04/10/20 Clopidogrel Bisulfate [Plavix -] 75 mg PO DAILY tablet 04/10/20 Nitroglycerin Sublingual [Nitrostat -] 0.4 mg SL Q5M PRN tab 04/10/20 Pantoprazole Sodium [Protonix -] 40 mg PO DAILY tablet.ec 04/10/20 Ranolazine [Ranexa -] 500 mg PO BID tab 04/10/20 Family Medical History Family History: Denies Review of Systems - Review of Systems Constitutional: reports: Loss of Appetite, Malaise, Weakness Eyes: reports: No Symptoms HENT: reports: No Symptoms Neck: reports: No Symptoms Cardiovascular: reports: No Symptoms Respiratory: reports: No Symptoms Gastrointestinal: reports: No Symptoms Genitourinary: reports: No Symptoms Musculoskeletal: reports: No Symptoms Integumentary: reports: No Symptoms Neurological: reports: No Symptoms Endocrine: reports: No Symptoms Hematology/Lymphatic: reports: No Symptoms Psychiatric: reports: No Symptoms Physical Exam Vital Signs: Vital Signs Temperature 98.5 F 04/25/20 10:00 Pulse Rate 73 04/25/20 10:00 Respiratory Rate 04/25/20 10:00 Blood Pressure 137/63 04/25/20 10:00 O2 Sat by Pulse Oximetry (%) 100 04/25/20 10:00 Constitutional: Yes: Calm Eyes: Yes: Conjunctiva Clear HENT: Yes: Atraumatic Neck: Yes: Supple Cardiovascular: Yes: S1, S2 Respiratory: Yes: CTA Bilaterally Renal/: Yes: Louie Present Musculoskeletal: Yes: Muscle Weakness Edema: Yes Edema: LLE: 1+, RLE: 1+ Neurological: Yes: Oriented Psychiatric: Yes: Oriented Labs: CBC, BMP 04/25/20 04:00 04/25/20 07:02 Laboratory Tests 04/09/20 04/09/20 04/10/20 06:22 11:55 05:48 Sodium Potassium BUN Creatinine 3.3 H 3.1 H 4.5 H B-Natriuretic Peptide 04/25/20 04/25/20 04/25/20 04:00 04:00 07:02 Sodium 135 L 134 L Potassium 5.7 H 5.7 H BUN 95.5 H 92.9 H Creatinine 5.5 H 5.5 H B-Natriuretic Peptide 1171.9 H Imaging - Results Cat Scan: Report Reviewed Ultrasound: Report Reviewed Problem List - Problems (1) Acute kidney injury superimposed on CKD Code(s): N17.9 - ACUTE KIDNEY FAILURE, UNSPECIFIED; N18.9 - CHRONIC KIDNEY DISEASE, UNSPECIFIED (2) Hyperkalemia Code(s): E87.5 - HYPERKALEMIA (3) Urinary retention Code(s): R33.9 - RETENTION OF URINE, UNSPECIFIED (4) BPH (benign prostatic hyperplasia) Code(s): N40.0 - BENIGN PROSTATIC HYPERPLASIA WITHOUT LOWER URINRY TRACT SYMP (5) Coronary artery disease Code(s): I25.10 - ATHSCL HEART DISEASE OF [place] CORONARY ARTERY W/O ANG PCTRS (6) History of hydrocelectomy Code(s): Z98.890 - OTHER SPECIFIED POSTPROCEDURAL STATES (7) Hyperlipidemia Code(s): E78.5 - HYPERLIPIDEMIA, UNSPECIFIED (8) Hypertension Code(s): I10 - ESSENTIAL (PRIMARY) HYPERTENSION (9) Syncope and collapse Code(s): R55 - SYNCOPE AND COLLAPSE Assessment/Plan Current Medications Generic Name Dose Route Start Last Admin Trade Name Freq PRN Reason Stop Dose Admin Amlodipine Besylate 10 mg 04/25/20 10:00 04/25/20 10:20 Norvasc - PO 10 mg DAILY REFUGIO Administration Aspirin 81 mg 04/25/20 10:00 04/25/20 10:20 Ecotrin - PO 81 mg DAILY REFUGIO Administration Atorvastatin Calcium 80 mg 04/25/20 22:00 Lipitor - PO HS REFUGIO Enoxaparin Sodium 60 mg 04/25/20 10:45 04/25/20 10:37 Lovenox - SQ 60 mg DAILY REFUGIO Administration Sodium Chloride 1,000 mls @ 100 mls/hr 04/25/20 11:45 04/25/20 11:42 Normal Saline - IV 100 mls/hr ASDIR REFUGIO Administration Multivitamins/Minerals 1 each 04/25/20 10:00 04/25/20 10:20 Theragran-M PO 1 each DAILY REFUGIO Administration Nitroglycerin 0.4 mg 04/25/20 08:52 Nitrostat - SL Q5M PRN FOR CHEST PAIN Ranolazine 500 mg 04/25/20 10:00 04/25/20 10:30 Ranexa - PO 500 mg BID REFUGIO Administration Impression 1. POOJA 2. CKD 3. hyperkalemia 4. hld 5. hydronephrosis 6. urinary retention 7. cva 8. htn 9. cad s/p [place] 10. PAD 11. gerd Plan - louie catheter in place and draining - will start fluids - monitor urine output and monitor for post obstructive diuresis - maintain louie/louie care - repeat bmp to assess potassium and protective services social worker, spoke to nurse - potassium treated medically earlier- - avoid nsaids - pooja likely in part secondary to obstruction - repeat labs in am
[2020-04-25 14:32] LABS: CALCIUM 8.7 mg/dL (8.5-10.1); CREATININE 4.1 mg/dL (0.55-1.3); POTASSIUM 4.9 mmol/L (3.5-5.1)
[2020-04-25 18:37] LABS: POTASSIUM 4.4 mmol/L (3.5-5.1)
[2020-04-25] MEDS: SODIUM CHLORIDE 0.45% 1,000 ML IV SCH (22:15)
[2020-04-25] MEDS: ATORVASTATIN CA 80 MG TABLET (FP) PO SCH (22:16)
[2020-04-26] MEDS: morphine SULFATE 4 MG/ML VIAL IVPUSH PRN ×3 (02:07→22:06)
[2020-04-26] MEDS: DEXTROSE 5%-0.45% SALINE 1,000 ML IV SCH (02:13)
[2020-04-26 07:51] LABS: BASO % 0.7 % (0-2.0); EOS % 1.2 % (0-4.5); HEMATOCRIT 25.4 % (35.4-49); HEMOGLOBIN 8.9 GM/dL (11.7-16.9); LYMPH % 17.1 % (8-40); MCH 31.1 pg (25.7-33.7); MCHC 34.9 g/dl (32.0-35.9); MEAN CELL VOLUME 89.1 fl (80-96); MEAN PLT VOLUME 7.3 fl (7.5-11.1); MONO % 10.9 % (3.8-10.2); NEUT % 70.1 % (42.8-82.8); PLATELET COUNT 261 K/MM3 (134-434); RBC 2.85 M/mm3 (4.00-5.60); RDW 13.8 % (11.9-15.9); WHITE BLOOD COUNT 9.4 K/mm3 (4.0-10.0)
[2020-04-26 07:54] LABS: ALBUMIN 2.2 g/dl (3.4-5.0); BILIRUBIN,TOTAL 0.6 mg/dL (0.2-1); CALCIUM 8.6 mg/dL (8.5-10.1); CREATININE 2.1 mg/dL (0.55-1.3); POTASSIUM 4.1 mmol/L (3.5-5.1); TOT PROT 5.4 g/dl (6.4-8.2)
[2020-04-26 07:57] LABS: BLOOD UREA NITROGEN 46.5 mg/dL (7-18)
[2020-04-26] MEDS: amLODIPine BESYLATE 10 MG TABLET (FP) PO SCH (09:38)
[2020-04-26] MEDS: ENOXAPARIN NA (PORCINE) 60 MG/0.6 ML DISP.SYRIN SQ SCH (09:38)
[2020-04-26] MEDS: RANOLAZINE E.R. 500 MG TABLET (FP) PO SCH ×2 (09:38→22:05)
[2020-04-26] MEDS: ASPIRIN COATED 81 MG TABLET.EC PO SCH (09:38)
[2020-04-26] MEDS: MULTIVITAMINS THER W-MINERALS COMBO TABLET (FP) PO SCH (09:38)
--- NOTE | 2020-04-26 10:10 | PN ---
Progress Note, Physician Chief Complaint: Patient seen and examined at the bedside, no acute events from last night except for severe pain of both lower legs (pain scale 9 out of 10), afebrile. History of Present Illness: This 89 yr old w/m with PMH of HTN, HLD, [place] X3, BPH, CKD, PAD, s/p left hydrocelectomy, pericardiits, CVA, GERD admitted via ER with an acute urinary retention, fall, and hyperkalemia. - Current Medication List Current Medications: Active Medications Amlodipine Besylate (Norvasc -) 10 mg PO DAILY [facility] Last Admin: 04/26/20 09:38 Dose: 10 mg Documented by: Aspirin (Ecotrin -) 81 mg PO DAILY [facility] Last Admin: 04/26/20 09:38 Dose: 81 mg Documented by: Atorvastatin Calcium (Lipitor -) 80 mg PO HS [facility] Last Admin: 04/25/20 22:16 Dose: 80 mg Documented by: Enoxaparin Sodium (Lovenox -) 60 mg SQ DAILY [facility] Last Admin: 04/26/20 09:38 Dose: 60 mg Documented by: Sodium Chloride (1/2 Normal Saline) 1,000 mls @ 100 mls/hr IV ASDIR [facility] Last Admin: 04/25/20 22:15 Dose: 100 mls/hr Documented by: Dextrose/Sodium Chloride (D5-1/2ns -) 1,000 mls @ 50 mls/hr IV ASDIR [facility] Last Admin: 04/26/20 02:13 Dose: 50 mls/hr Documented by: Morphine Sulfate (Morphine Sulfate) 4 mg IVPUSH Q6H PRN PRN Reason: PAIN LEVEL 6-10 Last Admin: 04/26/20 08:00 Dose: 4 mg Documented by: Multivitamins/Minerals (Theragran-M) 1 each PO DAILY [facility] Last Admin: 04/26/20 09:38 Dose: 1 each Documented by: Nitroglycerin (Nitrostat -) 0.4 mg SL Q5M PRN PRN Reason: FOR CHEST PAIN Ranolazine (Ranexa -) 500 mg PO BID [facility] Last Admin: 04/26/20 09:38 Dose: 500 mg Documented by: - Objective Vital Signs: Vital Signs Temperature 98.6 F 04/26/20 08:54 Pulse Rate 78 09/26/20 08:54 Respiratory Rate 18 04/26/20 08:54 Blood Pressure 127/53 L 04/26/20 08:54 O2 Sat by Pulse Oximetry (%) 97 04/26/20 08:54 Constitutional: Yes: Well Nourished, Calm, Mild Distress Eyes: Yes: Conjunctiva Clear, EOM Intact HENT: Yes: Atraumatic, Normocephalic Neck: Yes: Supple, Trachea Midline Cardiovascular: Yes: Regular Rate and Rhythm Respiratory: Yes: Regular, CTA Bilaterally Gastrointestinal: Yes: Normal Bowel Sounds, Soft ...Rectal Exam: Yes: Deferred Genitourinary: Yes: Bladder Distention (neurogenic bladder), Incontinence Breast(s): Yes: WNL Musculoskeletal: Yes: Muscle Weakness Extremities: Yes: WNL Edema: Yes Edema: LLE: 2+, RLE: 2+ Peripheral Pulses WNL: Yes Integumentary: Yes: WNL Neurological: Yes: Alert, Oriented, Unsteady Gait, Weakness ...Motor Strength: LLE (muscle weakness), RLE (muscle weakness) Psychiatric: Yes: Alert, Oriented Labs: CBC, BMP 04/26/20 06:43 04/26/20 06:43 INR, PTT INR 1.07 (0.83-1.09) 04/25/20 04:00 - ....Imaging Other: Report Reviewed (lab data reviewed) Problem List - Problems (1) Hyperkalemia Code(s): E87.5 - HYPERKALEMIA (2) Acute kidney injury superimposed on CKD Code(s): N17.9 - ACUTE KIDNEY FAILURE, UNSPECIFIED; N18.9 - CHRONIC KIDNEY DISEASE, UNSPECIFIED (3) Urinary retention Code(s): R33.9 - RETENTION OF URINE, UNSPECIFIED (4) BPH (benign prostatic hyperplasia) Code(s): N40.0 - BENIGN PROSTATIC HYPERPLASIA WITHOUT LOWER URINRY TRACT SYMP (5) Chronic arterial ischemic stroke Code(s): I69.30 - UNSPECIFIED SEQUELAE OF CEREBRAL INFARCTION (6) Concussion with brief LOC Code(s): S06.0X9A - CONCUSSION W LOSS OF CONSCIOUSNESS OF UNSP DURATION, INIT (7) Coronary artery disease Code(s): I25.10 - ATHSCL HEART DISEASE OF [place] CORONARY ARTERY W/O ANG PCTRS (8) GERD (gastroesophageal reflux disease) Code(s): K21.9 - GASTRO-ESOPHAGEAL REFLUX DISEASE WITHOUT ESOPHAGITIS (9) History of hydrocelectomy Code(s): Z98.890 - OTHER SPECIFIED POSTPROCEDURAL STATES (10) Hyperlipidemia Code(s): E78.5 - HYPERLIPIDEMIA, UNSPECIFIED (11) Hypertension Code(s): I10 - ESSENTIAL (PRIMARY) HYPERTENSION (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 Code(s): I25.2 - OLD MYOCARDIAL INFARCTION (13) Syncope and collapse Code(s): R55 - SYNCOPE AND COLLAPSE Assessment/Plan Assessment/plan: acute syncope and collaspe, acute urinary retention, acute hyperkalemia, right frontal cerebral hemorrhagic contusion, HTN, HLD, [place] X3, s/p hydrocelectomy, PAD, CVA, GERD, pericarditis, CKD; SQ Lovenox and aspirin for DVT of lower extremities; IV morphine for pain of lower extremities; amlodipine for HTN; atorvastatin for HLD; NTG and Ranexa for CAD; IV fluids for prerenal azotemia; oral Kayexalate for hyperkalemia; BUN and CR are trending down; Urology consult pending.
--- NOTE | 2020-04-26 11:19 | CONSULT ---
Consult Consult Specialty:: UROLOGY Reason for Consultation:: AUR - History of Present Illness History of Present Illness: 89 Y/O Male patient with pmhx of HT, HLD, CAD, Pericarditis, CVA, GERD and BPH who presents to the hospital after a fall. He was found to be in acute renal failure. O/E distended bladder CT-Scan distended bladder with mild bilateral hydro no stone. 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 Cardio/Vascular: Yes: CAD, HTN, Hyperlipdemia, [place] Pulmonary: No: Asthma, Bronchitis, Cancer, COPD, O2 Dependent, Pneumonia, Previously Intubated, Pulmonary Embolus, Pulmonary Fibrosis, Sleep Apnea, Other Gastrointestinal: Yes: GERD Hepatobiliary: No: Cirrhosis, Cholelithiasis, Cholecystitis, Choledocholithiasis , Hepatitis A, Hepatitis B, Hepatitis C, Other Renal/: Yes: BPH Infectious Disease: No: AIDS, C-Diff, Herpes Zoster, HIV, MRSA, STD's, Tuberculosis, VREF, Other Psych: No: Addictions, Anxiety, Bipolar, Depression, Panic, Psychosis, Schizophrenia, Other Musculoskeletal: Yes: Osteoarthritis Rheumatology: No: Fibromyalgia, Gout, Lupus, Rheumatoid Arthritis, Sarcoidosis, Vasculitis, Other ENT: No: Allergic Rhinitis, Sinusitis, Other Endocrine: No: [place] Disease, Erwin's Disease, Diabetes Insipidus, Diabetes Mellitus, Hyperparathyroidism, Hyperthyroidism, Hypothyroidism, Osteopenia, SIADH, Other Dermatology: No: Basal Cell, Cellulitis, Eczema, Melanoma, Psoriasis, Squamous Cell, Other - Past Surgical History Past Surgical History: Yes: Cystectomy - Smoking History Smoking history: Former smoker Have you smoked in the past 12 months: No Aproximately how many cigarettes per day: 20 If you are a former smoker, when did you quit?: 20 years ago Home Medications - Allergies Allergies/Adverse Reactions: Allergies Allergy/AdvReac Type Severity Reaction Status Date / Time Beta-Blockers Allergy Verified 04/25/20 07:10 (Beta-Adrenergic Bloc morphine Allergy Verified 04/25/20 07:10 tamsulosin [From Flomax] Allergy Verified 04/25/20 07:10 - Home Medications Home Medications: Ambulatory Orders Amlodipine Besylate [Norvasc -] 10 mg PO DAILY 04/06/20 Aspirin [ASA -] 81 mg PO DAILY 04/06/20 Atorvastatin Ca [Lipitor] 80 mg PO HS 04/06/20 Clopidogrel Bisulfate [Plavix] 75 mg PO DAILY 04/06/20 Multivit-Min/FA/Lycopen/Lutein [Centrum Silver Tablet] 1 each PO DAILY 04/06/20 Nitroglycerin 0.4 mg SL PRN 04/06/20 Ranolazine [Ranexa] 500 mg PO BID 04/06/20 Saw [place] Fruit/Zinc Picoli [Saw [place] 450 mg Capsule] 1 each PO DAILY 04/06/20 Amlodipine Besylate [Norvasc -] 10 mg PO DAILY tablet 04/10/20 Aspirin Coated [Ecotrin -] 81 mg PO DAILY tablet.ec 04/10/20 Atorvastatin Ca [Lipitor] 80 mg PO HS tablet 04/10/20 Clopidogrel Bisulfate [Plavix -] 75 mg PO DAILY tablet 04/10/20 Nitroglycerin Sublingual [Nitrostat -] 0.4 mg SL Q5M PRN tab 04/10/20 Pantoprazole Sodium [Protonix -] 40 mg PO DAILY tablet.ec 04/10/20 Ranolazine [Ranexa -] 500 mg PO BID tab 04/10/20 Family Medical History Family History: Denies Physical Exam Vital Signs: Vital Signs Temperature 98.6 F 04/26/20 08:54 Pulse Rate 78 04/26/20 08:54 Respiratory Rate 18 04/26/20 08:54 Blood Pressure 127/53 L 04/26/20 08:54 O2 Sat by Pulse Oximetry (%) 97 04/26/20 09:00 Labs: CBC, BMP 04/26/20 06:43 04/26/20 06:43 Assessment/Plan AUR Mild bilateral hydro Plan: keep louie catheter Renal and scrotal U/S will schedule him for cystoscopy when his medical condition allow
--- NOTE | 2020-04-26 11:37 | PN ---
Progress Note (short form) - Note Progress Note: RENAL Pt is awake and alert comfortable lying in bed Last Vital Signs Temp Pulse Resp BP Pulse Ox 98.6 F 78 18 127/53 L 97 04/26/20 08:54 04/26/20 08:54 04/26/20 08:54 04/26/20 08:54 04/26/20 09:00 lungs bilat air entry cvs s1s2 rr abd soft, no suprapubic fullness ext no edema neuro a+o CBC, BMP 04/26/20 06:43 04/26/20 06:43 Current Medications Generic Name Dose Route Start Last Admin Trade Name Freq PRN Reason Stop Dose Admin Amlodipine Besylate 10 mg 04/25/20 10:00 04/26/20 09:38 Norvasc - PO 10 mg DAILY REFUGIO Administration Aspirin 81 mg 04/25/20 10:00 04/26/20 09:38 Ecotrin - PO 81 mg DAILY REFUGIO Administration Atorvastatin Calcium 80 mg 04/25/20 22:00 04/25/20 22:16 Lipitor - PO 80 mg HS REFUGIO Administration Enoxaparin Sodium 60 mg 04/25/20 10:45 04/26/20 09:38 Lovenox - SQ 60 mg DAILY REFUGIO Administration Sodium Chloride 1,000 mls @ 100 mls/hr 04/25/20 20:30 04/25/20 22:15 1/2 Normal Saline IV 100 mls/hr ASDIR REFUGIO Administration Dextrose/Sodium Chloride 1,000 mls @ 50 mls/hr 04/26/20 02:00 04/26/20 02:13 D5-1/2ns - IV 50 mls/hr ASDIR REFUGIO Administration Morphine Sulfate 4 mg 04/26/20 01:53 04/26/20 08:00 Morphine Sulfate IVPUSH 4 mg Q6H PRN Administration PAIN LEVEL 6-10 Multivitamins/Minerals 1 each 04/25/20 10:00 04/26/20 09:38 Theragran-M PO 1 each DAILY REFUGIO Administration Nitroglycerin 0.4 mg 04/25/20 08:52 Nitrostat - SL Q5M PRN FOR CHEST PAIN Ranolazine 500 mg 04/25/20 10:00 04/26/20 09:38 Ranexa - PO 500 mg BID REFUGIO Administration Impression 1. POOJA 2. CKD 3. hyperkalemia 4. hld 5. hydronephrosis 6. urinary retention 7. cva 8. htn 9. cad s/p PR 10. PAD 11. gerd 12 dvt Plan - louie catheter in place and draining -continnue fluids -may need to adjust lovenox given improvement in renal function MV
[2020-04-26] MEDS: SODIUM CHLORIDE 0.45% 1,000 ML IV SCH ×2 (11:51→22:05)
[2020-04-26] MEDS ORDERED: ENOXAPARIN NA (PORCINE) 60 MG/0.6 ML DISP.SYRIN SQ SCH (19:36)
[2020-04-26] MEDS: ATORVASTATIN CA 80 MG TABLET (FP) PO SCH (22:05)
[2020-04-27] MEDS: morphine SULFATE 4 MG/ML VIAL IVPUSH PRN (06:32)
--- NOTE | 2020-04-27 07:52 | PN ---
Progress Note, Physician Chief Complaint: Patient seen and examined at the bedside, no acute events from last night, afebrile, pain in the left foot. History of Present Illness: This 89 yr old w/m with PMH of HTN, HLD, [place] X3, percarditis, BPH, PAD, left hydrocelectomy, CKD, GERD, CVA admitted via ER with acute urinary retention, hyperkalemia, acute bilateral DVT of lower extremities and prerenal azotemia. - Current Medication List Current Medications: Active Medications Amlodipine Besylate (Norvasc -) 10 mg PO DAILY [facility] Last Admin: 04/26/20 09:38 Dose: 10 mg Documented by: Aspirin (Ecotrin -) 81 mg PO DAILY [facility] Last Admin: 04/26/20 09:38 Dose: 81 mg Documented by: Atorvastatin Calcium (Lipitor -) 80 mg PO HS [facility] Last Admin: 04/26/20 22:05 Dose: 80 mg Documented by: Enoxaparin Sodium 40 mg/ (Enoxaparin Sodium 30 mg) 70 mg SQ DAILY [facility] Sodium Chloride (1/2 Normal Saline) 1,000 mls @ 100 mls/hr IV ASDIR [facility] Last Admin: 04/26/20 22:05 Dose: 100 mls/hr Documented by: Dextrose/Sodium Chloride (D5-1/2ns -) 1,000 mls @ 50 mls/hr IV ASDIR [facility] Last Admin: 04/26/20 02:13 Dose: 50 mls/hr Documented by: Morphine Sulfate (Morphine Sulfate) 4 mg IVPUSH Q6H PRN PRN Reason: PAIN LEVEL 6-10 Last Admin: 04/27/20 06:32 Dose: 4 mg Documented by: Multivitamins/Minerals (Theragran-M) 1 each PO DAILY [facility] Last Admin: 04/26/20 09:38 Dose: 1 each Documented by: Nitroglycerin (Nitrostat -) 0.4 mg SL Q5M PRN PRN Reason: FOR CHEST PAIN Ranolazine (Ranexa -) 500 mg PO BID [facility] Last Admin: 04/26/20 22:05 Dose: 500 mg Documented by: - Objective Vital Signs: Vital Signs Temperature 98.4 F 04/27/20 06:00 Pulse Rate 95 H 04/27/20 06:00 Respiratory Rate 18 04/27/20 06:00 Blood Pressure 143/63 04/27/20 06:00 O2 Sat by Pulse Oximetry (%) 95 04/27/20 06:00 Constitutional: Yes: Well Nourished, Calm, Mild Distress Eyes: Yes: Conjunctiva Clear, EOM Intact HENT: Yes: Atraumatic, Normocephalic Neck: Yes: Supple, Trachea Midline Cardiovascular: Yes: Regular Rate and Rhythm Respiratory: Yes: Regular, CTA Bilaterally Gastrointestinal: Yes: Normal Bowel Sounds, Soft ...Rectal Exam: Yes: Deferred Genitourinary: Yes: Reed Present Breast(s): Yes: WNL Musculoskeletal: Yes: Muscle Weakness Extremities: Yes: WNL Edema: Yes Edema: LLE: 1+, RLE: 1+ Peripheral Pulses WNL: Yes Integumentary: Yes: WNL Neurological: Yes: Alert, Oriented, Unsteady Gait, Weakness ...Motor Strength: LLE (muscle weakness), RLE (muscle weakness) Psychiatric: Yes: Alert, Oriented Labs: INR, PTT INR 1.07 (0.83-1.09) 04/25/20 04:00 - ....Imaging Other: Report Reviewed (lab data reviewed) Problem List - Problems (1) Hyperkalemia Code(s): E87.5 - HYPERKALEMIA (2) Acute kidney injury superimposed on CKD Code(s): N17.9 - ACUTE KIDNEY FAILURE, UNSPECIFIED; N18.9 - CHRONIC KIDNEY DISEASE, UNSPECIFIED (3) Urinary retention Code(s): R33.9 - RETENTION OF URINE, UNSPECIFIED (4) BPH (benign prostatic hyperplasia) Code(s): N40.0 - BENIGN PROSTATIC HYPERPLASIA WITHOUT LOWER URINRY TRACT SYMP (5) Chronic arterial ischemic stroke Code(s): I69.30 - UNSPECIFIED SEQUELAE OF CEREBRAL INFARCTION (6) Concussion with brief LOC Code(s): S06.0X9A - CONCUSSION W LOSS OF CONSCIOUSNESS OF UNSP DURATION, INIT (7) Coronary artery disease Code(s): I25.10 - ATHSCL HEART DISEASE OF [place] CORONARY ARTERY W/O ANG PCTRS (8) GERD (gastroesophageal reflux disease) Code(s): K21.9 - GASTRO-ESOPHAGEAL REFLUX DISEASE WITHOUT ESOPHAGITIS (9) History of hydrocelectomy Code(s): Z98.890 - OTHER SPECIFIED POSTPROCEDURAL STATES (10) Hyperlipidemia Code(s): E78.5 - HYPERLIPIDEMIA, UNSPECIFIED (11) Hypertension Code(s): I10 - ESSENTIAL (PRIMARY) HYPERTENSION (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 Code(s): I25.2 - OLD MYOCARDIAL INFARCTION (13) Syncope and collapse Code(s): R55 - SYNCOPE AND COLLAPSE Assessment/Plan Assessment/plan: acute urinary retention, acute neurogenic bladder, mild bilateral hydronephrosis, acute hyperkalemia, acute prerenal azotemia, dehydration, POOJA, HTN, HLD, [place] X3, PAD, BPH, pericarditis, GERD, CVA, CKD; IV fluids for dehydration; SQ Lovenox and aspirin for DVT of lower extremities; amlodipine for HTN; atorvastatin for HLD; NTG and Ranexa for CAD; IV morphine for pain; oral Kayexalate for hyperkalemia; Reed catheter for acute urinary retention.
[2020-04-27 07:56] LABS: BASO % 0.7 % (0-2.0); HEMATOCRIT 25.3 % (35.4-49); HEMOGLOBIN 8.7 GM/dL (11.7-16.9); LYMPH % 16.9 % (8-40); MCH 30.5 pg (25.7-33.7); MCHC 34.2 g/dl (32.0-35.9); MEAN PLT VOLUME 7.1 fl (7.5-11.1); MONO % 12.1 % (3.8-10.2); NEUT % 67.3 % (42.8-82.8); PLATELET COUNT 259 K/MM3 (134-434); RBC 2.84 M/mm3 (4.00-5.60); RDW 13.8 % (11.9-15.9)
[2020-04-27 08:24] LABS: BLOOD UREA NITROGEN 21.7 mg/dL (7-18); CALCIUM 8.4 mg/dL (8.5-10.1); POTASSIUM 3.8 mmol/L (3.5-5.1)
[2020-04-27] MEDS: DEXTROSE 5%-0.45% SALINE 1,000 ML IV SCH ×2 (08:43→17:57)
[2020-04-27 09:29] LABS: BILIRUBIN,TOTAL 0.6 mg/dL (0.2-1); CREATININE 1.2 mg/dL (0.55-1.3)
[2020-04-27] MEDS ORDERED: ENOXAPARIN NA (PORCINE) 40 MG/0.4 ML DISP.SYRIN SQ ONE ×2 (09:49→21:37)
[2020-04-27] MEDS ORDERED: ENOXAPARIN NA (PORCINE) 30 MG/0.3 ML DISP.SYRIN SQ ONE ×2 (09:49→21:37)
[2020-04-27] MEDS: MULTIVITAMINS THER W-MINERALS COMBO TABLET (FP) PO SCH (09:51)
[2020-04-27] MEDS: RANOLAZINE E.R. 500 MG TABLET (FP) PO SCH ×2 (09:51→21:44)
[2020-04-27] MEDS: amLODIPine BESYLATE 10 MG TABLET (FP) PO SCH (09:51)
[2020-04-27] MEDS: ASPIRIN COATED 81 MG TABLET.EC PO SCH (09:52)
[2020-04-27] MEDS ORDERED: ENOXAPARIN SQ SCH (10:00)
--- NOTE | 2020-04-27 11:09 | PN ---
Progress Note (short form) - Note Progress Note: RENAL Pt is awake and alert comfortable lying in bed Last Vital Signs Temp Pulse Resp BP Pulse Ox 98.4 F 95 H 18 143/63 95 04/27/20 06:00 04/27/20 06:00 04/27/20 06:00 04/27/20 06:00 04/27/20 06:00 lungs bilat air entry cvs s1s2 rr abd soft, no suprapubic fullness ext no edema neuro a+o CBC, BMP 04/27/20 06:56 04/27/20 06:56 Current Medications Generic Name Dose Route Start Last Admin Trade Name Freq PRN Reason Stop Dose Admin Amlodipine Besylate 10 mg 04/25/20 10:00 04/27/20 09:51 Norvasc - PO 10 mg DAILY REFUGIO Administration Aspirin 81 mg 04/25/20 10:00 04/27/20 09:52 Ecotrin - PO 81 mg DAILY REFUGIO Administration Atorvastatin Calcium 80 mg 04/25/20 22:00 04/26/20 22:05 Lipitor - PO 80 mg HS REFUGIO Administration Enoxaparin Sodium 40 mg/ 70 mg 04/27/20 10:00 04/27/20 09:51 Enoxaparin Sodium 30 mg SQ 70 mg DAILY REFUGIO Administration Sodium Chloride 1,000 mls @ 100 mls/hr 04/25/20 20:30 04/26/20 22:05 1/2 Normal Saline IV 100 mls/hr ASDIR REFUGIO Administration Dextrose/Sodium Chloride 1,000 mls @ 50 mls/hr 04/26/20 02:00 04/27/20 08:43 D5-1/2ns - IV 50 mls/hr ASDIR REFUGIO Administration Morphine Sulfate 4 mg 04/26/20 01:53 04/27/20 06:32 Morphine Sulfate IVPUSH 4 mg Q6H PRN Administration PAIN LEVEL 6-10 Multivitamins/Minerals 1 each 04/25/20 10:00 04/27/20 09:51 Theragran-M PO 1 each DAILY REFUGIO Administration Nitroglycerin 0.4 mg 04/25/20 08:52 Nitrostat - SL Q5M PRN FOR CHEST PAIN Ranolazine 500 mg 04/25/20 10:00 04/27/20 09:51 Ranexa - PO 500 mg BID REFUGIO Administration Impression 1. POOJA 2. CKD 3. hyperkalemia 4. hld 5. hydronephrosis 6. urinary retention 7. cva 8. htn 9. cad s/p [place] 10. PAD 11. gerd 12 dvt Plan doing well reduce fluids monitor renal function continue lovenox urology MV
[2020-04-27 13:45] VITALS: BMI 23.6
[2020-04-27] MEDS: ENOXAPARIN SQ SCH (21:44)
[2020-04-27] MEDS: ATORVASTATIN CA 80 MG TABLET (FP) PO SCH (21:44)
[2020-04-28 07:39] LABS: BASO % 0.7 % (0-2.0); EOS % 3.6 % (0-4.5); HEMATOCRIT 26.6 % (35.4-49); HEMOGLOBIN 9.2 GM/dL (11.7-16.9); LYMPH % 18.6 % (8-40); MCH 30.8 pg (25.7-33.7); MCHC 34.6 g/dl (32.0-35.9); MEAN CELL VOLUME 88.9 fl (80-96); MEAN PLT VOLUME 7.2 fl (7.5-11.1); MONO % 9.8 % (3.8-10.2); NEUT % 67.3 % (42.8-82.8); PLATELET COUNT 271 K/MM3 (134-434); RBC 2.99 M/mm3 (4.00-5.60); RDW 13.8 % (11.9-15.9); WHITE BLOOD COUNT 9.9 K/mm3 (4.0-10.0)
[2020-04-28 08:06] LABS: ALBUMIN 2.1 g/dl (3.4-5.0); BILIRUBIN,TOTAL 0.6 mg/dL (0.2-1); BLOOD UREA NITROGEN 17.7 mg/dL (7-18); CALCIUM 8.5 mg/dL (8.5-10.1); CREATININE 1.1 mg/dL (0.55-1.3); POTASSIUM 3.8 mmol/L (3.5-5.1); TOT PROT 5.2 g/dl (6.4-8.2)
--- NOTE | 2020-04-28 08:55 | PN ---
Progress Note, Physician Chief Complaint: Patient seen and examined at the bedside, no acute events from last night, c/o constipation and intermittent pain of the right lower leg. History of Present Illness: This 89 yr old w/m with PMH of left hydrocelectomy, HTN, HLD, PAD, BPH, s/p CVA, pericarditis, [place] X3, GERD admitted via ER with an acute urinary retention, neurogenic bladder, mild bilateral hydronephrosis, hyperkalemia, and prerenal azotemia. - Current Medication List Current Medications: Active Medications Amlodipine Besylate (Norvasc -) 10 mg PO DAILY [facility] Last Admin: 04/27/20 09:51 Dose: 10 mg Documented by: Aspirin (Ecotrin -) 81 mg PO DAILY [facility] Last Admin: 04/27/20 09:52 Dose: 81 mg Documented by: Atorvastatin Calcium (Lipitor -) 80 mg PO HS [facility] Last Admin: 04/27/20 21:44 Dose: 80 mg Documented by: Enoxaparin Sodium 40 mg/ (Enoxaparin Sodium 30 mg) 70 mg SQ BID [facility] Last Admin: 04/27/20 21:44 Dose: 70 mg Documented by: Dextrose/Sodium Chloride (D5-1/2ns -) 1,000 mls @ 40 mls/hr IV ASDIR [facility] Last Admin: 04/27/20 17:57 Dose: 40 mls/hr Documented by: Morphine Sulfate (Morphine Sulfate) 4 mg IVPUSH Q6H PRN PRN Reason: PAIN LEVEL 6-10 Last Admin: 04/27/20 06:32 Dose: 4 mg Documented by: Multivitamins/Minerals (Theragran-M) 1 each PO DAILY [facility] Last Admin: 04/27/20 09:51 Dose: 1 each Documented by: Nitroglycerin (Nitrostat -) 0.4 mg SL Q5M PRN PRN Reason: FOR CHEST PAIN Ranolazine (Ranexa -) 500 mg PO BID [facility] Last Admin: 04/27/20 21:44 Dose: 500 mg Documented by: - Objective Vital Signs: Vital Signs Temperature 98.7 F 04/28/20 06:00 Pulse Rate 79 04/28/20 06:00 Respiratory Rate 18 04/28/20 06:00 Blood Pressure 126/55 L 04/28/20 06:00 O2 Sat by Pulse Oximetry (%) 95 04/28/20 06:00 Constitutional: Yes: Well Nourished, Calm, Mild Distress (Intermittent pain of the right lower leg) Eyes: Yes: Conjunctiva Clear, EOM Intact HENT: Yes: Atraumatic, Normocephalic Neck: Yes: Supple, Trachea Midline Cardiovascular: Yes: Regular Rate and Rhythm Respiratory: Yes: Regular, CTA Bilaterally Gastrointestinal: Yes: Normal Bowel Sounds, Soft ...Rectal Exam: Yes: Deferred Genitourinary: Yes: Reed Present Breast(s): Yes: WNL Musculoskeletal: Yes: Muscle Weakness Edema: Yes Edema: LLE: 1+, RLE: 1+ Peripheral Pulses WNL: Yes Integumentary: Yes: WNL Neurological: Yes: Alert, Oriented, Unsteady Gait, Weakness ...Motor Strength: LLE (muscle weakness), RLE (muscle weakness) Psychiatric: Yes: Alert, Oriented Labs: CBC, BMP 04/28/20 07:09 04/28/20 07:09 INR, PTT INR 1.07 (0.83-1.09) 04/25/20 04:00 - ....Imaging Other: Report Reviewed (lab data reviewed) Problem List - Problems (1) Hyperkalemia Code(s): E87.5 - HYPERKALEMIA (2) Acute kidney injury superimposed on CKD Code(s): N17.9 - ACUTE KIDNEY FAILURE, UNSPECIFIED; N18.9 - CHRONIC KIDNEY DISEASE, UNSPECIFIED (3) Urinary retention Code(s): R33.9 - RETENTION OF URINE, UNSPECIFIED (4) BPH (benign prostatic hyperplasia) Code(s): N40.0 - BENIGN PROSTATIC HYPERPLASIA WITHOUT LOWER URINRY TRACT SYMP (5) Chronic arterial ischemic stroke Code(s): I69.30 - UNSPECIFIED SEQUELAE OF CEREBRAL INFARCTION (6) Concussion with brief LOC Code(s): S06.0X9A - CONCUSSION W LOSS OF CONSCIOUSNESS OF UNSP DURATION, INIT (7) Coronary artery disease Code(s): I25.10 - ATHSCL HEART DISEASE OF [place] CORONARY ARTERY W/O ANG PCTRS (8) GERD (gastroesophageal reflux disease) Code(s): K21.9 - GASTRO-ESOPHAGEAL REFLUX DISEASE WITHOUT ESOPHAGITIS (9) History of hydrocelectomy Code(s): Z98.890 - OTHER SPECIFIED POSTPROCEDURAL STATES (10) Hyperlipidemia Code(s): E78.5 - HYPERLIPIDEMIA, UNSPECIFIED (11) Hypertension Code(s): I10 - ESSENTIAL (PRIMARY) HYPERTENSION (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 Code(s): I25.2 - OLD MYOCARDIAL INFARCTION (13) Syncope and collapse Code(s): R55 - SYNCOPE AND COLLAPSE (14) Constipation Code(s): K59.00 - CONSTIPATION, UNSPECIFIED Assessment/Plan Assessment/plan: acute urinary retention, neurogenic bladder, acute DVT of lower extremities, mild bilateral hydronephrosis, acute hyperkalemia, POOJA, acute prerenal azotemia, HTN, HLD, PAD, s/p CVA, BPH, pericardiits, [place] X3, GERD; SQ Lovenox and aspirin for acute DVT; IV fluids for prerenal azotemia; amlodipine for HTN; atorvastatin for HLD; NTG and Ranexa for CAD; IV Morphine sulfate for pain; physical therapy for deconditioning.
[2020-04-28] MEDS ORDERED: ENOXAPARIN NA (PORCINE) 40 MG/0.4 ML DISP.SYRIN SQ ONE ×2 (09:05→20:35)
[2020-04-28] MEDS ORDERED: ENOXAPARIN NA (PORCINE) 30 MG/0.3 ML DISP.SYRIN SQ ONE ×2 (09:05→20:36)
[2020-04-28] MEDS: RANOLAZINE E.R. 500 MG TABLET (FP) PO SCH ×2 (09:20→21:13)
[2020-04-28] MEDS: amLODIPine BESYLATE 10 MG TABLET (FP) PO SCH (09:20)
[2020-04-28] MEDS: morphine SULFATE 4 MG/ML VIAL IVPUSH PRN ×2 (09:20→23:55)
[2020-04-28] MEDS: ASPIRIN COATED 81 MG TABLET.EC PO SCH (09:20)
[2020-04-28] MEDS: MULTIVITAMINS THER W-MINERALS COMBO TABLET (FP) PO SCH (09:20)
[2020-04-28] MEDS: ENOXAPARIN SQ SCH ×2 (09:21→21:14)
[2020-04-28] MEDS ORDERED: TAMSULOSIN HCL 0.4 MG CAP PO ONE (12:22)
--- NOTE | 2020-04-28 16:50 | PN ---
Progress Note, Physician History of Present Illness: Pt seen and examined at bedside. He is awake and alert. He denies shortness of breath. - Current Medication List Current Medications: Active Medications Amlodipine Besylate (Norvasc -) 10 mg PO DAILY [facility] Last Admin: 04/28/20 09:20 Dose: 10 mg Documented by: Aspirin (Ecotrin -) 81 mg PO DAILY [facility] Last Admin: 04/28/20 09:20 Dose: 81 mg Documented by: Atorvastatin Calcium (Lipitor -) 80 mg PO HS [facility] Last Admin: 04/27/20 21:44 Dose: 80 mg Documented by: Enoxaparin Sodium 40 mg/ (Enoxaparin Sodium 30 mg) 70 mg SQ BID [facility] Last Admin: 04/28/20 09:21 Dose: 70 mg Documented by: Dextrose/Sodium Chloride (D5-1/2ns -) 1,000 mls @ 40 mls/hr IV ASDIR [facility] Last Admin: 04/27/20 17:57 Dose: 40 mls/hr Documented by: Morphine Sulfate (Morphine Sulfate) 4 mg IVPUSH Q6H PRN PRN Reason: PAIN LEVEL 6-10 Last Admin: 04/28/20 09:20 Dose: 4 mg Documented by: Multivitamins/Minerals (Theragran-M) 1 each PO DAILY [facility] Last Admin: 04/28/20 09:20 Dose: 1 each Documented by: Nitroglycerin (Nitrostat -) 0.4 mg SL Q5M PRN PRN Reason: FOR CHEST PAIN Ranolazine (Ranexa -) 500 mg PO BID [facility] Last Admin: 04/28/20 09:20 Dose: 500 mg Documented by: Senna (Senna -) 2 tab PO HS PRN PRN Reason: CONSTIPATION Tamsulosin HCl (Flomax -) 0.4 mg PO ONCE ONE Stop: 04/28/20 12:23 - Objective Vital Signs: Vital Signs Temperature 98.6 F 04/28/20 13:34 Pulse Rate 70 04/28/20 13:34 Respiratory Rate 18 04/28/20 13:34 Blood Pressure 115/52 L 04/28/20 13:34 O2 Sat by Pulse Oximetry (%) 95 04/28/20 10:00 Constitutional: Yes: Calm Eyes: Yes: Conjunctiva Clear HENT: Yes: Atraumatic Neck: Yes: Supple Cardiovascular: Yes: S1, S2 Respiratory: Yes: CTA Bilaterally Gastrointestinal: Yes: Soft Genitourinary: Yes: WNL Musculoskeletal: Yes: WNL Edema: No Neurological: Yes: Oriented Psychiatric: Yes: Oriented Labs: CBC, BMP 04/28/20 07:09 04/28/20 07:09 INR, PTT INR 1.07 (0.83-1.09) 04/25/20 04:00 Problem List - Problems (1) Acute kidney injury superimposed on CKD Code(s): N17.9 - ACUTE KIDNEY FAILURE, UNSPECIFIED; N18.9 - CHRONIC KIDNEY DISEASE, UNSPECIFIED (2) Hyperkalemia Code(s): E87.5 - HYPERKALEMIA (3) Urinary retention Code(s): R33.9 - RETENTION OF URINE, UNSPECIFIED (4) BPH (benign prostatic hyperplasia) Code(s): N40.0 - BENIGN PROSTATIC HYPERPLASIA WITHOUT LOWER URINRY TRACT SYMP (5) Coronary artery disease Code(s): I25.10 - ATHSCL HEART DISEASE OF [place] CORONARY ARTERY W/O ANG PCTRS (6) History of hydrocelectomy Code(s): Z98.890 - OTHER SPECIFIED POSTPROCEDURAL STATES (7) Hyperlipidemia Code(s): E78.5 - HYPERLIPIDEMIA, UNSPECIFIED (8) Hypertension Code(s): I10 - ESSENTIAL (PRIMARY) HYPERTENSION (9) Syncope and collapse Code(s): R55 - SYNCOPE AND COLLAPSE Assessment/Plan Current Medications Generic Name Dose Route Start Last Admin Trade Name Anthonyq PRN Reason Stop Dose Admin Amlodipine Besylate 10 mg 04/25/20 10:00 04/28/20 09:20 Norvasc - PO 10 mg DAILY REFUGIO Administration Aspirin 81 mg 04/25/20 10:00 04/28/20 09:20 Ecotrin - PO 81 mg DAILY REFUGIO Administration Atorvastatin Calcium 80 mg 04/25/20 22:00 04/27/20 21:44 Lipitor - PO 80 mg HS REFUGIO Administration Enoxaparin Sodium 40 mg/ 70 mg 04/27/20 22:00 04/28/20 09:21 Enoxaparin Sodium 30 mg SQ 70 mg BID REFUGIO Administration Dextrose/Sodium Chloride 1,000 mls @ 40 mls/hr 04/27/20 14:27 04/27/20 17:57 D5-1/2ns - IV 40 mls/hr ASDIR REFUGIO Administration Morphine Sulfate 4 mg 04/26/20 01:53 04/28/20 09:20 Morphine Sulfate IVPUSH 4 mg Q6H PRN Administration PAIN LEVEL 6-10 Multivitamins/Minerals 1 each 04/25/20 10:00 04/28/20 09:20 Theragran-M PO 1 each DAILY RE[facility]UGIO Administration Nitroglycerin 0.4 mg 04/25/20 08:52 Nitrostat - SL Q5M PRN FOR CHEST PAIN Ranolazine 500 mg 04/25/20 10:00 04/28/20 09:20 Ranexa - PO 500 mg BID REFUGIO Administration Senna 2 tab 04/28/20 09:18 Senna - PO HS PRN CONSTIPATION Tamsulosin HCl 0.4 mg 04/28/20 12:22 Flomax - PO 04/28/20 12:23 ONCE ONE Impression 1. HAWK 2. CKD 3. hyperkalemia 4. hld 5. hydronephrosis 6. urinary retention 7. cva 8. htn 9. cad s/p [place] 10. PAD 11. gerd Plan - renal function is improved - pt on voiding trial - repeat labs in am - gentle hydration - monitor glucose - hawk secondary to obstructive disease
[2020-04-28] MEDS: DEXTROSE 5%-0.45% SALINE 1,000 ML IV SCH (21:13)
[2020-04-28] MEDS: ATORVASTATIN CA 80 MG TABLET (FP) PO SCH (21:13)
--- NOTE | 2020-04-28 23:33 | PN ---
DATE OF VISIT: DATE OF DICTATION: 04/28/2020 HISTORY OF PRESENT ILLNESS: The patient is an 89-year-old male admitted via the emergency room with acute urinary retention and bilateral hydroureteronephrosis, hyperkalemia, and post renal azotemia. A Reed catheter has been placed into the patient, and he is diuresing well. His BUN and creatinine are down. The BUN was 81 on admission, today it is 17.7. Creatinine was 4.1, today it is 1.1. The patient's white count is 9.9, hemoglobin and hematocrit is 9.2 over 26.6. His abdomen is soft. He is afebrile. Blood pressure 115/52. A trial at voiding has failed. Patient has been on saw palmetto for several years. He has recently been commenced on Flomax without any success due to the bilateral hydronephrosis and progressive postrenal azotemia. Will recommend a cystoscopy, possible TURP when patient is medically cleared. Usama [id number]
[2020-04-29 06:46] LABS: BASO % 0.5 % (0-2.0); EOS % 4.5 % (0-4.5); HEMATOCRIT 25.7 % (35.4-49); HEMOGLOBIN 8.9 GM/dL (11.7-16.9); LYMPH % 21.9 % (8-40); MCH 30.8 pg (25.7-33.7); MCHC 34.6 g/dl (32.0-35.9); MEAN PLT VOLUME 7.3 fl (7.5-11.1); MONO % 9.8 % (3.8-10.2); NEUT % 63.3 % (42.8-82.8); PLATELET COUNT 288 K/MM3 (134-434); RBC 2.88 M/mm3 (4.00-5.60); RDW 13.9 % (11.9-15.9); WHITE BLOOD COUNT 9.6 K/mm3 (4.0-10.0)
[2020-04-29 07:21] LABS: POTASSIUM 3.9 mmol/L (3.5-5.1)
[2020-04-29 07:31] LABS: ALBUMIN 2.1 g/dl (3.4-5.0); BILIRUBIN,TOTAL 0.5 mg/dL (0.2-1); BLOOD UREA NITROGEN 13.1 mg/dL (7-18); CALCIUM 8.5 mg/dL (8.5-10.1); CREATININE 1.2 mg/dL (0.55-1.3); TOT PROT 5.3 g/dl (6.4-8.2)
--- NOTE | 2020-04-29 08:24 | PN ---
Progress Note, Physician Chief Complaint: Patient seen and examined at the bedside, no acute events from last night, c/o intermittent pain of the right lower leg. History of Present Illness: This 89 yr old w/m with PMH of HTN, HLD, PAD, BPH, pericarditis, [place] X3, CVA, GERD admitted via ER with an acute urinary retention, acute DVT of lower extremities, acute hyperkalemia, and prerenal azotemia. - Current Medication List Current Medications: Active Medications Amlodipine Besylate (Norvasc -) 10 mg PO DAILY [facility] Last Admin: 04/28/20 09:20 Dose: 10 mg Documented by: Aspirin (Ecotrin -) 81 mg PO DAILY [facility] Last Admin: 04/28/20 09:20 Dose: 81 mg Documented by: Atorvastatin Calcium (Lipitor -) 80 mg PO HS [facility] Last Admin: 04/28/20 21:13 Dose: 80 mg Documented by: Enoxaparin Sodium 40 mg/ (Enoxaparin Sodium 30 mg) 70 mg SQ BID [facility] Last Admin: 04/28/20 21:14 Dose: 70 mg Documented by: Dextrose/Sodium Chloride (D5-1/2ns -) 1,000 mls @ 40 mls/hr IV ASDIR [facility] Last Admin: 04/28/20 21:13 Dose: Not Given Documented by: Morphine Sulfate (Morphine Sulfate) 4 mg IVPUSH Q6H PRN PRN Reason: PAIN LEVEL 6-10 Last Admin: 04/28/20 23:55 Dose: 4 mg Documented by: Multivitamins/Minerals (Theragran-M) 1 each PO DAILY [facility] Last Admin: 04/28/20 09:20 Dose: 1 each Documented by: Nitroglycerin (Nitrostat -) 0.4 mg SL Q5M PRN PRN Reason: FOR CHEST PAIN Ranolazine (Ranexa -) 500 mg PO BID [facility] Last Admin: 04/28/20 21:13 Dose: 500 mg Documented by: Senna (Senna -) 2 tab PO HS PRN PRN Reason: CONSTIPATION Tamsulosin HCl (Flomax -) 0.4 mg PO ONCE ONE Stop: 04/28/20 12:23 - Objective Vital Signs: Vital Signs Temperature 98.5 F 04/29/20 05:57 Pulse Rate 80 04/29/20 05:57 Respiratory Rate 18 04/29/20 05:57 Blood Pressure 142/61 04/29/20 05:57 O2 Sat by Pulse Oximetry (%) 95 04/29/20 05:57 Constitutional: Yes: Well Nourished, No Distress, Calm Eyes: Yes: Conjunctiva Clear, EOM Intact HENT: Yes: Atraumatic, Normocephalic Neck: Yes: Supple, Trachea Midline Cardiovascular: Yes: Regular Rate and Rhythm Respiratory: Yes: Regular, CTA Bilaterally Gastrointestinal: Yes: Normal Bowel Sounds, Soft ...Rectal Exam: Yes: Deferred Genitourinary: Yes: Reed Present, Incontinence Breast(s): Yes: WNL Musculoskeletal: Yes: Muscle Weakness Extremities: Yes: WNL Edema: Yes Edema: LLE: 1+, RLE: 1+ Peripheral Pulses WNL: Yes Integumentary: Yes: WNL Neurological: Yes: Alert, Oriented, Unsteady Gait, Weakness ...Motor Strength: LLE (muscle weakness), RLE (muscle weakness) Psychiatric: Yes: Alert, Oriented Labs: CBC, BMP 04/29/20 05:45 04/29/20 05:45 INR, PTT INR 1.07 (0.83-1.09) 04/25/20 04:00 - ....Imaging Other: Report Reviewed (lab data reviewed) Problem List - Problems (1) Hyperkalemia Code(s): E87.5 - HYPERKALEMIA (2) Acute kidney injury superimposed on CKD Code(s): N17.9 - ACUTE KIDNEY FAILURE, UNSPECIFIED; N18.9 - CHRONIC KIDNEY DISEASE, UNSPECIFIED (3) Urinary retention Code(s): R33.9 - RETENTION OF URINE, UNSPECIFIED (4) BPH (benign prostatic hyperplasia) Code(s): N40.0 - BENIGN PROSTATIC HYPERPLASIA WITHOUT LOWER URINRY TRACT SYMP (5) Chronic arterial ischemic stroke Code(s): I69.30 - UNSPECIFIED SEQUELAE OF CEREBRAL INFARCTION (6) Concussion with brief LOC Code(s): S06.0X9A - CONCUSSION W LOSS OF CONSCIOUSNESS OF UNSP DURATION, INIT (7) Coronary artery disease Code(s): I25.10 - ATHSCL HEART DISEASE OF [place] CORONARY ARTERY W/O ANG PCTRS (8) GERD (gastroesophageal reflux disease) Code(s): K21.9 - GASTRO-ESOPHAGEAL REFLUX DISEASE WITHOUT ESOPHAGITIS (9) History of hydrocelectomy Code(s): Z98.890 - OTHER SPECIFIED POSTPROCEDURAL STATES (10) Hyperlipidemia Code(s): E78.5 - HYPERLIPIDEMIA, UNSPECIFIED (11) Hypertension Code(s): I10 - ESSENTIAL (PRIMARY) HYPERTENSION (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 Code(s): I25.2 - OLD MYOCARDIAL INFARCTION (13) Syncope and collapse Code(s): R55 - SYNCOPE AND COLLAPSE (14) Constipation Code(s): K59.00 - CONSTIPATION, UNSPECIFIED Assessment/Plan Assessment/plan: acute urinary retention, bilateral hydronephrosis, hyperkalemia , acute DVT of lower extremities, POOJA, prerenal azotemia, HTN, HLD, PAD, BPH, pericarditis, s/p CVA, GERD, [place] X3; SQ Lovenox and aspirin for acute DVT; amlodipine for HTN, atorvastatin for HLD; NTG and Ranexa for CAD; IV Morphine sulfate for pain control; physical therapy for deconditioning; IV fluids for hydration; senna for constipation.
--- NOTE | 2020-04-29 08:35 | PN ---
DATE OF VISIT: DATE OF DICTATION: 04/28/2020 Patient is an 89-year-old male admitted via the emergency room on April 25, 2020, with urinary retention, bilateral hydroureteronephrosis and a distended bladder. He does have history of high blood pressure, coronary artery disease, pericarditis, GERD and CVA, also has had history of prostatism including frequency, urgency, hesitancy, terminal dribbling, weak stream and feelings of incomplete bladder emptying. The CT scan revealed a distended bladder with bilateral moderate hydroureteronephrosis. There were no stones. The patient's BUN on admission was 81. Creatinine was 4.1. Presently the BUN and creatinine are within normal limits. His Reed is patent. Urine is clear. Will recommend a cystoscopy, possible TUR prostate when patient is medically cleared. GARRETT VASQUEZ M.D. [id number]
[2020-04-29] MEDS ORDERED: ENOXAPARIN NA (PORCINE) 30 MG/0.3 ML DISP.SYRIN SQ ONE ×2 (09:22→20:26)
[2020-04-29] MEDS ORDERED: ENOXAPARIN NA (PORCINE) 40 MG/0.4 ML DISP.SYRIN SQ ONE ×2 (09:22→20:26)
[2020-04-29] MEDS: MULTIVITAMINS THER W-MINERALS COMBO TABLET (FP) PO SCH (09:46)
[2020-04-29] MEDS: amLODIPine BESYLATE 10 MG TABLET (FP) PO SCH (09:46)
[2020-04-29] MEDS: SENNOSIDES 8.6MG TABLET (FP) PO PRN ×2 (09:46→21:03)
[2020-04-29] MEDS: ENOXAPARIN SQ SCH ×2 (09:47→21:01)
[2020-04-29] MEDS: RANOLAZINE E.R. 500 MG TABLET (FP) PO SCH ×2 (09:47→21:03)
[2020-04-29] MEDS: ASPIRIN COATED 81 MG TABLET.EC PO SCH (09:47)
--- NOTE | 2020-04-29 10:08 | PN ---
Progress Note (short form) - Note Progress Note: UROLOGY NOTE AUR & severe phimosis 16 F louie catheter was inserted and drain clear urine. Plan: keep louie catheter will schedule him for circumcision and cystoscopy when his medical condition allow.
--- NOTE | 2020-04-29 13:29 | PN ---
Progress Note, Physician History of Present Illness: Pt seen and examined at bedside. He did not tolerate voiding trial. - Current Medication List Current Medications: Active Medications Amlodipine Besylate (Norvasc -) 10 mg PO DAILY [facility] Last Admin: 04/29/20 09:46 Dose: 10 mg Documented by: Aspirin (Ecotrin -) 81 mg PO DAILY [facility] Last Admin: 04/29/20 09:47 Dose: 81 mg Documented by: Atorvastatin Calcium (Lipitor -) 80 mg PO HS [facility] Last Admin: 04/28/20 21:13 Dose: 80 mg Documented by: Enoxaparin Sodium 40 mg/ (Enoxaparin Sodium 30 mg) 70 mg SQ BID [facility] Last Admin: 04/29/20 09:47 Dose: 70 mg Documented by: Dextrose/Sodium Chloride (D5-1/2ns -) 1,000 mls @ 40 mls/hr IV ASDIR [facility] Last Admin: 04/28/20 21:13 Dose: Not Given Documented by: Morphine Sulfate (Morphine Sulfate) 4 mg IVPUSH Q6H PRN PRN Reason: PAIN LEVEL 6-10 Last Admin: 04/28/20 23:55 Dose: 4 mg Documented by: Multivitamins/Minerals (Theragran-M) 1 each PO DAILY [facility] Last Admin: 04/29/20 09:46 Dose: 1 each Documented by: Nitroglycerin (Nitrostat -) 0.4 mg SL Q5M PRN PRN Reason: FOR CHEST PAIN Ranolazine (Ranexa -) 500 mg PO BID [facility] Last Admin: 04/29/20 09:47 Dose: 500 mg Documented by: Senna (Senna -) 2 tab PO HS PRN PRN Reason: CONSTIPATION Last Admin: 04/29/20 09:46 Dose: 2 tab Documented by: - Objective Vital Signs: Vital Signs Temperature 98.4 F 04/29/20 10:00 Pulse Rate 78 04/29/20 10:00 Respiratory Rate 18 04/29/20 10:00 Blood Pressure 125/66 04/29/20 10:00 O2 Sat by Pulse Oximetry (%) 96 04/29/20 10:00 Constitutional: Yes: Calm Eyes: Yes: Conjunctiva Clear HENT: Yes: Atraumatic Cardiovascular: Yes: S1, S2 Respiratory: Yes: CTA Bilaterally Gastrointestinal: Yes: Normal Bowel Sounds, Soft Genitourinary: Yes: Louie Present Musculoskeletal: Yes: WNL Edema: No Neurological: Yes: Oriented Psychiatric: Yes: Oriented Labs: CBC, BMP 04/29/20 05:45 04/29/20 05:45 INR, PTT INR 1.07 (0.83-1.09) 04/25/20 04:00 Problem List - Problems (1) Acute kidney injury superimposed on CKD Code(s): N17.9 - ACUTE KIDNEY FAILURE, UNSPECIFIED; N18.9 - CHRONIC KIDNEY DISEASE, UNSPECIFIED (2) Hyperkalemia Code(s): E87.5 - HYPERKALEMIA (3) Urinary retention Code(s): R33.9 - RETENTION OF URINE, UNSPECIFIED (4) BPH (benign prostatic hyperplasia) Code(s): N40.0 - BENIGN PROSTATIC HYPERPLASIA WITHOUT LOWER URINRY TRACT SYMP (5) Coronary artery disease Code(s): I25.10 - ATHSCL HEART DISEASE OF [place] CORONARY ARTERY W/O ANG PCTRS (6) History of hydrocelectomy Code(s): Z98.890 - OTHER SPECIFIED POSTPROCEDURAL STATES (7) Hyperlipidemia Code(s): E78.5 - HYPERLIPIDEMIA, UNSPECIFIED (8) Hypertension Code(s): I10 - ESSENTIAL (PRIMARY) HYPERTENSION (9) Syncope and collapse Code(s): R55 - SYNCOPE AND COLLAPSE Assessment/Plan Current Medications Generic Name Dose Route Start Last Admin Trade Name Freq PRN Reason Stop Dose Admin Amlodipine Besylate 10 mg 04/25/20 10:00 04/29/20 09:46 Norvasc - PO 10 mg DAILY RE[facility]UGIO Administration Aspirin 81 mg 04/25/20 10:00 04/29/20 09:47 Ecotrin - PO 81 mg DAILY [facility] Administration Atorvastatin Calcium 80 mg 04/25/20 22:00 04/28/20 21:13 Lipitor - PO 80 mg HS RE[facility]UGIO Administration Enoxaparin Sodium 40 mg/ 70 mg 04/27/20 22:00 04/29/20 09:47 Enoxaparin Sodium 30 mg SQ 70 mg BID RE[facility]UGIO Administration Dextrose/Sodium Chloride 1,000 mls @ 40 mls/hr 04/27/20 14:27 04/28/20 21:13 D5-1/2ns - IV Not Given ASDIR REFUGIO Morphine Sulfate 4 mg 04/26/20 01:53 04/28/20 23:55 Morphine Sulfate IVPUSH 4 mg Q6H PRN Administration PAIN LEVEL 6-10 Multivitamins/Minerals 1 each 04/25/20 10:00 04/29/20 09:46 Theragran-M PO 1 each DAILY [facility] Administration Nitroglycerin 0.4 mg 04/25/20 08:52 Nitrostat - SL Q5M PRN FOR CHEST PAIN Ranolazine 500 mg 04/25/20 10:00 04/29/20 09:47 Ranexa - PO 500 mg BID [facility] Administration Senna 2 tab 04/28/20 09:18 04/29/20 09:46 Senna - PO 2 tab HS PRN Administration CONSTIPATION Impression 1. POOJA 2. CKD 3. hyperkalemia 4. hld 5. hydronephrosis 6. urinary retention 7. cva 8. htn 9. cad s/p [place] 10. PAD 11. gerd Plan - louie in place - monitor lytes - urology input appreciated - repeat labs in am - gentle hydration - monitor glucose - opoja secondary to obstructive disease
[2020-04-29] MEDS: DEXTROSE 5%-0.45% SALINE 1,000 ML IV SCH (21:00)
[2020-04-29] MEDS: ATORVASTATIN CA 80 MG TABLET (FP) PO SCH (21:03)
[2020-04-29] MEDS: morphine SULFATE 4 MG/ML VIAL IVPUSH PRN (22:39)
[2020-04-30 07:36] LABS: BASO % 0.6 % (0-2.0); EOS % 4.8 % (0-4.5); LYMPH % 22.6 % (8-40); MCHC 34.7 g/dl (32.0-35.9); MEAN CELL VOLUME 89.5 fl (80-96); MEAN PLT VOLUME 7.3 fl (7.5-11.1); MONO % 9.1 % (3.8-10.2); NEUT % 62.9 % (42.8-82.8); PLATELET COUNT 297 K/MM3 (134-434); RDW 13.9 % (11.9-15.9); WHITE BLOOD COUNT 8.9 K/mm3 (4.0-10.0)
[2020-04-30 07:43] LABS: BLOOD UREA NITROGEN 16.4 mg/dL (7-18); CALCIUM 8.7 mg/dL (8.5-10.1); CREATININE 1.2 mg/dL (0.55-1.3)
--- NOTE | 2020-04-30 08:20 | PN ---
Progress Note, Physician Chief Complaint: Patient seen and examined at the bedside, no acute events from last night, intermittent pain of the right leg. History of Present Illness: This 89 yr old w/m with PMH of HTN, HLD, ID X3, PAD, BPH, pericarditis, s/p CVA, GERD admitted via ER with an acute urinary retention, acute hyperkalemia, and acute DVT of lower extremities. - Current Medication List Current Medications: Active Medications Amlodipine Besylate (Norvasc -) 10 mg PO DAILY [facility] Last Admin: 04/29/20 09:46 Dose: 10 mg Documented by: Aspirin (Ecotrin -) 81 mg PO DAILY [facility] Last Admin: 04/29/20 09:47 Dose: 81 mg Documented by: Atorvastatin Calcium (Lipitor -) 80 mg PO HS [facility] Last Admin: 04/29/20 21:03 Dose: 80 mg Documented by: Enoxaparin Sodium 40 mg/ (Enoxaparin Sodium 30 mg) 70 mg SQ BID [facility] Last Admin: 04/29/20 21:01 Dose: 70 mg Documented by: Dextrose/Sodium Chloride (D5-1/2ns -) 1,000 mls @ 40 mls/hr IV ASDIR [facility] Last Admin: 04/29/20 21:00 Dose: 40 mls/hr Documented by: Morphine Sulfate (Morphine Sulfate) 4 mg IVPUSH Q6H PRN PRN Reason: PAIN LEVEL 6-10 Last Admin: 04/29/20 22:39 Dose: 4 mg Documented by: Multivitamins/Minerals (Theragran-M) 1 each PO DAILY [facility] Last Admin: 04/29/20 09:46 Dose: 1 each Documented by: Nitroglycerin (Nitrostat -) 0.4 mg SL Q5M PRN PRN Reason: FOR CHEST PAIN Ranolazine (Ranexa -) 500 mg PO BID [facility] Last Admin: 04/29/20 21:03 Dose: 500 mg Documented by: Senna (Senna -) 2 tab PO HS PRN PRN Reason: CONSTIPATION Last Admin: 04/29/20 21:03 Dose: 2 tab Documented by: - Objective Vital Signs: Vital Signs Temperature 98.1 F 04/30/20 06:00 Pulse Rate 72 04/30/20 06:00 Respiratory Rate 18 04/30/20 06:00 Blood Pressure 123/60 04/30/20 06:00 O2 Sat by Pulse Oximetry (%) 95 04/30/20 06:00 Constitutional: Yes: Well Nourished, No Distress, Calm Eyes: Yes: Conjunctiva Clear, EOM Intact HENT: Yes: Atraumatic, Normocephalic Neck: Yes: Supple, Trachea Midline Cardiovascular: Yes: Regular Rate and Rhythm Respiratory: Yes: Regular, CTA Bilaterally Gastrointestinal: Yes: Normal Bowel Sounds, Soft ...Rectal Exam: Yes: Deferred Genitourinary: Yes: Reed Present Breast(s): Yes: WNL Musculoskeletal: Yes: Muscle Weakness Extremities: Yes: WNL Edema: Yes Edema: LLE: 1+, RLE: 1+ Peripheral Pulses WNL: Yes Integumentary: Yes: WNL Neurological: Yes: Alert, Oriented, Unsteady Gait, Weakness ...Motor Strength: LLE (muscle weakness), RLE (muscle weakness) Psychiatric: Yes: Alert, Oriented Labs: CBC, BMP 04/30/20 06:35 04/30/20 06:35 INR, PTT INR 1.07 (0.83-1.09) 04/25/20 04:00 - ....Imaging Other: Report Reviewed (lab data reviewed) Problem List - Problems (1) Hyperkalemia Code(s): E87.5 - HYPERKALEMIA (2) Acute kidney injury superimposed on CKD Code(s): N17.9 - ACUTE KIDNEY FAILURE, UNSPECIFIED; N18.9 - CHRONIC KIDNEY DISEASE, UNSPECIFIED (3) Urinary retention Code(s): R33.9 - RETENTION OF URINE, UNSPECIFIED (4) BPH (benign prostatic hyperplasia) Code(s): N40.0 - BENIGN PROSTATIC HYPERPLASIA WITHOUT LOWER URINRY TRACT SYMP (5) Chronic arterial ischemic stroke Code(s): I69.30 - UNSPECIFIED SEQUELAE OF CEREBRAL INFARCTION (6) Concussion with brief LOC Code(s): S06.0X9A - CONCUSSION W LOSS OF CONSCIOUSNESS OF UNSP DURATION, INIT (7) Coronary artery disease Code(s): I25.10 - ATHSCL HEART DISEASE OF [place] CORONARY ARTERY W/O ANG PCTRS (8) GERD (gastroesophageal reflux disease) Code(s): K21.9 - GASTRO-ESOPHAGEAL REFLUX DISEASE WITHOUT ESOPHAGITIS (9) History of hydrocelectomy Code(s): Z98.890 - OTHER SPECIFIED POSTPROCEDURAL STATES (10) Hyperlipidemia Code(s): E78.5 - HYPERLIPIDEMIA, UNSPECIFIED (11) Hypertension Code(s): I10 - ESSENTIAL (PRIMARY) HYPERTENSION (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
[2020-04-30] MEDS ORDERED: ENOXAPARIN NA (PORCINE) 30 MG/0.3 ML DISP.SYRIN SQ ONE ×2 (09:50→21:02)
[2020-04-30] MEDS ORDERED: ENOXAPARIN NA (PORCINE) 40 MG/0.4 ML DISP.SYRIN SQ ONE ×2 (09:50→21:01)
[2020-04-30] MEDS: amLODIPine BESYLATE 10 MG TABLET (FP) PO SCH (09:52)
[2020-04-30] MEDS: RANOLAZINE E.R. 500 MG TABLET (FP) PO SCH ×2 (09:52→21:11)
[2020-04-30] MEDS: ENOXAPARIN SQ SCH ×2 (09:52→21:11)
[2020-04-30] MEDS: MULTIVITAMINS THER W-MINERALS COMBO TABLET (FP) PO SCH (09:52)
[2020-04-30] MEDS: ASPIRIN COATED 81 MG TABLET.EC PO SCH (09:53)
--- NOTE | 2020-04-30 11:57 | PN ---
Progress Note, Physician History of Present Illness: Pt seen and examined at bedside. He is awake and alert. Reed in place. - Current Medication List Current Medications: Active Medications Amlodipine Besylate (Norvasc -) 10 mg PO DAILY [facility] Last Admin: 04/30/20 09:52 Dose: 10 mg Documented by: Aspirin (Ecotrin -) 81 mg PO DAILY [facility] Last Admin: 04/30/20 09:53 Dose: 81 mg Documented by: Atorvastatin Calcium (Lipitor -) 80 mg PO HS [facility] Last Admin: 04/29/20 21:03 Dose: 80 mg Documented by: Enoxaparin Sodium 40 mg/ (Enoxaparin Sodium 30 mg) 70 mg SQ BID [facility] Last Admin: 04/30/20 09:52 Dose: 70 mg Documented by: Dextrose/Sodium Chloride (D5-1/2ns -) 1,000 mls @ 40 mls/hr IV ASDIR [facility] Last Admin: 04/29/20 21:00 Dose: 40 mls/hr Documented by: Morphine Sulfate (Morphine Sulfate) 4 mg IVPUSH Q6H PRN PRN Reason: PAIN LEVEL 6-10 Last Admin: 04/29/20 22:39 Dose: 4 mg Documented by: Multivitamins/Minerals (Theragran-M) 1 each PO DAILY [facility] Last Admin: 04/30/20 09:52 Dose: 1 each Documented by: Nitroglycerin (Nitrostat -) 0.4 mg SL Q5M PRN PRN Reason: FOR CHEST PAIN Ranolazine (Ranexa -) 500 mg PO BID [facility] Last Admin: 04/30/20 09:52 Dose: 500 mg Documented by: Senna (Senna -) 2 tab PO HS PRN PRN Reason: CONSTIPATION Last Admin: 04/29/20 21:03 Dose: 2 tab Documented by: - Objective Vital Signs: Vital Signs Temperature 98.1 F 04/30/20 06:00 Pulse Rate 72 04/30/20 06:00 Respiratory Rate 18 04/30/20 09:00 Blood Pressure 123/60 04/30/20 06:00 O2 Sat by Pulse Oximetry (%) 95 04/30/20 09:00 Constitutional: Yes: Calm Eyes: Yes: Conjunctiva Clear HENT: Yes: Atraumatic Neck: Yes: Supple Cardiovascular: Yes: S1, S2 Respiratory: Yes: CTA Bilaterally Gastrointestinal: Yes: Normal Bowel Sounds, Soft Genitourinary: Yes: Reed Present Musculoskeletal: Yes: WNL Edema: No Neurological: Yes: Oriented Psychiatric: Yes: Oriented Labs: CBC, BMP 04/30/20 06:35 04/30/20 06:35 INR, PTT INR 1.07 (0.83-1.09) 04/25/20 04:00 Problem List - Problems (1) Acute kidney injury superimposed on CKD Code(s): N17.9 - ACUTE KIDNEY FAILURE, UNSPECIFIED; N18.9 - CHRONIC KIDNEY DISEASE, UNSPECIFIED (2) Hyperkalemia Code(s): E87.5 - HYPERKALEMIA (3) Urinary retention Code(s): R33.9 - RETENTION OF URINE, UNSPECIFIED (4) BPH (benign prostatic hyperplasia) Code(s): N40.0 - BENIGN PROSTATIC HYPERPLASIA WITHOUT LOWER URINRY TRACT SYMP (5) Coronary artery disease Code(s): I25.10 - ATHSCL HEART DISEASE OF [place] CORONARY ARTERY W/O ANG PCTRS (6) History of hydrocelectomy Code(s): Z98.890 - OTHER SPECIFIED POSTPROCEDURAL STATES (7) Hyperlipidemia Code(s): E78.5 - HYPERLIPIDEMIA, UNSPECIFIED (8) Hypertension Code(s): I10 - ESSENTIAL (PRIMARY) HYPERTENSION (9) Syncope and collapse Code(s): R55 - SYNCOPE AND COLLAPSE Assessment/Plan Current Medications Generic Name Dose Route Start Last Admin Trade Name Freq PRN Reason Stop Dose Admin Amlodipine Besylate 10 mg 04/25/20 10:00 04/30/20 09:52 Norvasc - PO 10 mg DAILY [facility] Administration Aspirin 81 mg 04/25/20 10:00 04/30/20 09:53 Ecotrin - PO 81 mg DAILY [facility] Administration Atorvastatin Calcium 80 mg 04/25/20 22:00 04/29/20 21:03 Lipitor - PO 80 mg HS RE[facility]IO Administration Enoxaparin Sodium 40 mg/ 70 mg 04/27/20 22:00 04/30/20 09:52 Enoxaparin Sodium 30 mg SQ 70 mg BID [facility] Administration Dextrose/Sodium Chloride 1,000 mls @ 40 mls/hr 04/27/20 14:27 04/29/20 21:00 D5-1/2ns - IV 40 mls/hr ASDIR [facility] Administration Morphine Sulfate 4 mg 04/26/20 01:53 04/29/20 22:39 Morphine Sulfate IVPUSH 4 mg Q6H PRN Administration PAIN LEVEL 6-10 Multivitamins/Minerals 1 each 04/25/20 10:00 04/30/20 09:52 Theragran-M PO 1 each DAILY [facility] Administration Nitroglycerin 0.4 mg 04/25/20 08:52 Nitrostat - SL Q5M PRN FOR CHEST PAIN Ranolazine 500 mg 04/25/20 10:00 04/30/20 09:52 Ranexa - PO 500 mg BID [facility] Administration Senna 2 tab 04/28/20 09:18 04/29/20 21:03 Senna - PO 2 tab HS PRN Administration CONSTIPATION Impression 1. POOJA 2. CKD 3. hyperkalemia 4. hld 5. hydronephrosis 6. urinary retention 7. cva 8. htn 9. cad s/p [place] 10. PAD 11. gerd Plan - renal function is stable - cont to monitor lytes - cysto on tuesday - gentle hydration - monitor glucose - pooja secondary to obstructive disease
[2020-04-30] MEDS: ATORVASTATIN CA 80 MG TABLET (FP) PO SCH (21:11)
[2020-04-30] MEDS: DEXTROSE 5%-0.45% SALINE 1,000 ML IV SCH (21:17)
[2020-04-30] MEDS: morphine SULFATE 4 MG/ML VIAL IVPUSH PRN (22:41)
[2020-05-01] MEDS: morphine SULFATE 4 MG/ML VIAL IVPUSH PRN ×3 (06:03→23:45)
[2020-05-01 07:29] LABS: BASO % 0.6 % (0-2.0); EOS % 4.1 % (0-4.5); HEMATOCRIT 23.5 % (35.4-49); HEMOGLOBIN 8.2 GM/dL (11.7-16.9); LYMPH % 21.9 % (8-40); MCH 31.3 pg (25.7-33.7); MEAN CELL VOLUME 89.4 fl (80-96); MEAN PLT VOLUME 7.5 fl (7.5-11.1); MONO % 10.1 % (3.8-10.2); NEUT % 63.3 % (42.8-82.8); PLATELET COUNT 282 K/MM3 (134-434); RBC 2.63 M/mm3 (4.00-5.60); RDW 14.1 % (11.9-15.9)
[2020-05-01 08:03] LABS: BLOOD UREA NITROGEN 18.8 mg/dL (7-18); CALCIUM 8.4 mg/dL (8.5-10.1); CREATININE 1.2 mg/dL (0.55-1.3); POTASSIUM 4.1 mmol/L (3.5-5.1)
[2020-05-01] MEDS ORDERED: ENOXAPARIN NA (PORCINE) 30 MG/0.3 ML DISP.SYRIN SQ ONE (08:19)
[2020-05-01] MEDS ORDERED: ENOXAPARIN NA (PORCINE) 40 MG/0.4 ML DISP.SYRIN SQ ONE (08:19)
--- NOTE | 2020-05-01 08:30 | PN ---
Progress Note, Physician Chief Complaint: Patient seen and examined at the bedside, no acute events from last night, afebrile, intermittent pain in both legs. History of Present Illness: This 89 yr old w/m with PMH of PR X3, HTN, HLD, PAD, BPH, pericarditis, CVA, GERD admitted via ER with an acute urinary retention, bilateral hydroereteronephrosis, DVT of lower extremities, post renal azotemia, POOJA, and hyperkalemia. - Current Medication List Current Medications: Active Medications Amlodipine Besylate (Norvasc -) 10 mg PO DAILY [facility] Last Admin: 04/30/20 09:52 Dose: 10 mg Documented by: Aspirin (Ecotrin -) 81 mg PO DAILY [facility] Last Admin: 04/30/20 09:53 Dose: 81 mg Documented by: Atorvastatin Calcium (Lipitor -) 80 mg PO HS [facility] Last Admin: 04/30/20 21:11 Dose: 80 mg Documented by: Enoxaparin Sodium 40 mg/ (Enoxaparin Sodium 30 mg) 70 mg SQ BID [facility] Last Admin: 04/30/20 21:11 Dose: 70 mg Documented by: Dextrose/Sodium Chloride (D5-1/2ns -) 1,000 mls @ 40 mls/hr IV ASDIR [facility] Last Admin: 04/30/20 21:17 Dose: 40 mls/hr Documented by: Morphine Sulfate (Morphine Sulfate) 4 mg IVPUSH Q6H PRN PRN Reason: PAIN LEVEL 6-10 Last Admin: 05/01/20 06:03 Dose: 4 mg Documented by: Multivitamins/Minerals (Theragran-M) 1 each PO DAILY [facility] Last Admin: 04/30/20 09:52 Dose: 1 each Documented by: Nitroglycerin (Nitrostat -) 0.4 mg SL Q5M PRN PRN Reason: FOR CHEST PAIN Ranolazine (Ranexa -) 500 mg PO BID [facility] Last Admin: 04/30/20 21:11 Dose: 500 mg Documented by: Senna (Senna -) 2 tab PO HS PRN PRN Reason: CONSTIPATION Last Admin: 04/29/20 21:03 Dose: 2 tab Documented by: - Objective Vital Signs: Vital Signs Temperature 98.1 F 05/01/20 06:00 Pulse Rate 78 05/01/20 06:00 Respiratory Rate 18 05/01/20 06:00 Blood Pressure 123/54 L 05/01/20 06:00 O2 Sat by Pulse Oximetry (%) 96 05/01/20 06:00 Constitutional: Yes: Well Nourished, Calm, Mild Distress (intermittent pain in lower extremities) Eyes: Yes: Conjunctiva Clear, EOM Intact HENT: Yes: Atraumatic, Normocephalic Neck: Yes: Supple, Trachea Midline Cardiovascular: Yes: Regular Rate and Rhythm Respiratory: Yes: Regular, CTA Bilaterally Gastrointestinal: Yes: Normal Bowel Sounds, Soft ...Rectal Exam: Yes: Deferred Genitourinary: Yes: Reed Present Breast(s): Yes: WNL Musculoskeletal: Yes: Muscle Weakness Extremities: Yes: WNL Edema: Yes Edema: LLE: 1+, RLE: 1+ Peripheral Pulses WNL: Yes Integumentary: Yes: WNL Neurological: Yes: Alert, Oriented, Unsteady Gait, Weakness ...Motor Strength: LLE (muscle weakness), RLE (muscle weakness) Psychiatric: Yes: Alert, Oriented Labs: CBC, BMP 05/01/20 06:58 05/01/20 06:58 INR, PTT INR 1.07 (0.83-1.09) 04/25/20 04:00 - ....Imaging Other: Report Reviewed (lab data reviewed) Problem List - Problems (1) Hyperkalemia Code(s): E87.5 - HYPERKALEMIA (2) Acute kidney injury superimposed on CKD Code(s): N17.9 - ACUTE KIDNEY FAILURE, UNSPECIFIED; N18.9 - CHRONIC KIDNEY DISEASE, UNSPECIFIED (3) Urinary retention Code(s): R33.9 - RETENTION OF URINE, UNSPECIFIED (4) BPH (benign prostatic hyperplasia) Code(s): N40.0 - BENIGN PROSTATIC HYPERPLASIA WITHOUT LOWER URINRY TRACT SYMP (5) Chronic arterial ischemic stroke Code(s): I69.30 - UNSPECIFIED SEQUELAE OF CEREBRAL INFARCTION (6) Concussion with brief LOC Code(s): S06.0X9A - CONCUSSION W LOSS OF CONSCIOUSNESS OF UNSP DURATION, INIT (7) Coronary artery disease Code(s): I25.10 - ATHSCL HEART DISEASE OF [place] CORONARY ARTERY W/O ANG PCTRS (8) GERD (gastroesophageal reflux disease) Code(s): K21.9 - GASTRO-ESOPHAGEAL REFLUX DISEASE WITHOUT ESOPHAGITIS (9) History of hydrocelectomy Code(s): Z98.890 - OTHER SPECIFIED POSTPROCEDURAL STATES (10) Hyperlipidemia Code(s): E78.5 - HYPERLIPIDEMIA, UNSPECIFIED (11) Hypertension Code(s): I10 - ESSENTIAL (PRIMARY) HYPERTENSION (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 Code(s): I25.2 - OLD MYOCARDIAL INFARCTION (13) Syncope and collapse Code(s): R55 - SYNCOPE AND COLLAPSE (14) Constipation Code(s): K59.00 - CONSTIPATION, UNSPECIFIED Assessment/Plan Assessment/plan: acute urinary retention, post renal azotemia, POOJA secondary to obstructive disease, bilateral hydroureteronephrosis, DVT of lower extremities, hyperkalemia, acute iron deficiency anemia, elevated d-dimer trending down, HTN, HLD, PAD, BPH, GERD, PR X3, s/p CVA; gentle hydration with IV fluids; IV venofer for iron deficiency anemia; SQ Lovenox and aspirin for DVT of lower extremities; amolodipine for HTN; atorvastatin for HLD; NTG and Ranexa for CAD; IV morphine sulfate for pain of lower extremities; oral Protonix for GI prophylaxis; physical therapy for deconditioning; consult to vascular surgery pending.
[2020-05-01] MEDS ORDERED: SENNOSIDES 8.6MG TABLET (FP) PO PRN (08:53)
[2020-05-01] MEDS: ASPIRIN COATED 81 MG TABLET.EC PO SCH (08:59)
[2020-05-01] MEDS: MULTIVITAMINS THER W-MINERALS COMBO TABLET (FP) PO SCH (08:59)
[2020-05-01] MEDS: amLODIPine BESYLATE 10 MG TABLET (FP) PO SCH (08:59)
[2020-05-01] MEDS: RANOLAZINE E.R. 500 MG TABLET (FP) PO SCH ×2 (08:59→21:09)
[2020-05-01] MEDS: ENOXAPARIN SQ SCH (09:00)
[2020-05-01] MEDS: PANTOPRAZOLE 40 MG TABLET PO SCH (09:12)
[2020-05-01] MEDS ORDERED: IRON SUCROSE INJECTION 100 MG in SODIUM CHLORIDE 95 ML IVPB ONE (10:00)
[2020-05-01] MEDS: DEXTROSE 5%-0.45% SALINE 1,000 ML IV SCH ×2 (12:37→15:27)
--- NOTE | 2020-05-01 15:02 | PN ---
Progress Note, Physician History of Present Illness: Pt seen and examined at bedside. He is awake and alert. He denies shortness of breath. - Current Medication List Current Medications: Active Medications Amlodipine Besylate (Norvasc -) 10 mg PO DAILY [facility] Last Admin: 05/01/20 08:59 Dose: 10 mg Documented by: Aspirin (Ecotrin -) 81 mg PO DAILY [facility] Last Admin: 05/01/20 08:59 Dose: 81 mg Documented by: Atorvastatin Calcium (Lipitor -) 80 mg PO HS [facility] Last Admin: 04/30/20 21:11 Dose: 80 mg Documented by: Enoxaparin Sodium 40 mg/ (Enoxaparin Sodium 30 mg) 70 mg SQ BID [facility] Last Admin: 05/01/20 09:00 Dose: 70 mg Documented by: Dextrose/Sodium Chloride (D5-1/2ns -) 1,000 mls @ 40 mls/hr IV ASDIR [facility] Last Admin: 05/01/20 12:37 Dose: 40 mls/hr Documented by: Morphine Sulfate (Morphine Sulfate) 4 mg IVPUSH Q6H PRN PRN Reason: PAIN LEVEL 6-10 Last Admin: 05/01/20 06:03 Dose: 4 mg Documented by: Multivitamins/Minerals (Theragran-M) 1 each PO DAILY [facility] Last Admin: 05/01/20 08:59 Dose: 1 each Documented by: Nitroglycerin (Nitrostat -) 0.4 mg SL Q5M PRN PRN Reason: FOR CHEST PAIN Pantoprazole Sodium (Protonix -) 40 mg PO DAILY [facility] Last Admin: 05/01/20 09:12 Dose: 40 mg Documented by: Ranolazine (Ranexa -) 500 mg PO BID [facility] Last Admin: 05/01/20 08:59 Dose: 500 mg Documented by: Senna (Senna -) 3 tab PO HS PRN PRN Reason: CONSTIPATION - Objective Vital Signs: Vital Signs Temperature 98.1 F 05/01/20 06:00 Pulse Rate 78 05/01/20 06:00 Respiratory Rate 18 05/01/20 08:46 Blood Pressure 123/54 L 05/01/20 06:00 O2 Sat by Pulse Oximetry (%) 97 05/01/20 08:46 Constitutional: Yes: Calm Eyes: Yes: Conjunctiva Clear HENT: Yes: Atraumatic Neck: Yes: Supple Cardiovascular: Yes: S1, S2 Respiratory: Yes: CTA Bilaterally Gastrointestinal: Yes: Normal Bowel Sounds, Soft Genitourinary: Yes: Louie Present Musculoskeletal: Yes: Muscle Weakness Edema: No Neurological: Yes: Oriented Psychiatric: Yes: Oriented Labs: CBC, BMP 05/01/20 06:58 05/01/20 06:58 INR, PTT INR 1.07 (0.83-1.09) 04/25/20 04:00 Problem List - Problems (1) Acute kidney injury superimposed on CKD Code(s): N17.9 - ACUTE KIDNEY FAILURE, UNSPECIFIED; N18.9 - CHRONIC KIDNEY DISEASE, UNSPECIFIED (2) Hyperkalemia Code(s): E87.5 - HYPERKALEMIA (3) Urinary retention Code(s): R33.9 - RETENTION OF URINE, UNSPECIFIED (4) BPH (benign prostatic hyperplasia) Code(s): N40.0 - BENIGN PROSTATIC HYPERPLASIA WITHOUT LOWER URINRY TRACT SYMP (5) Coronary artery disease Code(s): I25.10 - ATHSCL HEART DISEASE OF [place] CORONARY ARTERY W/O ANG PCTRS (6) History of hydrocelectomy Code(s): Z98.890 - OTHER SPECIFIED POSTPROCEDURAL STATES (7) Hyperlipidemia Code(s): E78.5 - HYPERLIPIDEMIA, UNSPECIFIED (8) Hypertension Code(s): I10 - ESSENTIAL (PRIMARY) HYPERTENSION (9) Syncope and collapse Code(s): R55 - SYNCOPE AND COLLAPSE Assessment/Plan Current Medications Generic Name Dose Route Start Last Admin Trade Name Freq PRN Reason Stop Dose Admin Amlodipine Besylate 10 mg 04/25/20 10:00 05/01/20 08:59 Norvasc - PO 10 mg DAILY [facility] Administration Aspirin 81 mg 04/25/20 10:00 05/01/20 08:59 Ecotrin - PO 81 mg DAILY [facility] Administration Atorvastatin Calcium 80 mg 04/25/20 22:00 04/30/20 21:11 Lipitor - PO 80 mg HS [facility] Administration Enoxaparin Sodium 40 mg/ 70 mg 04/27/20 22:00 05/01/20 09:00 Enoxaparin Sodium 30 mg SQ 70 mg BID [facility] Administration Dextrose/Sodium Chloride 1,000 mls @ 40 mls/hr 04/27/20 14:27 05/01/20 12:37 D5-1/2ns - IV 40 mls/hr ASDIR [facility] Administration Morphine Sulfate 4 mg 04/26/20 01:53 05/01/20 06:03 Morphine Sulfate IVPUSH 4 mg Q6H PRN Administration PAIN LEVEL 6-10 Multivitamins/Minerals 1 each 04/25/20 10:00 05/01/20 08:59 Theragran-M PO 1 each DAILY [facility] Administration Nitroglycerin 0.4 mg 04/25/20 08:52 Nitrostat - SL Q5M PRN FOR CHEST PAIN Pantoprazole Sodium 40 mg 05/01/20 10:00 05/01/20 09:12 Protonix - PO 40 mg DAILY [facility] Administration Ranolazine 500 mg 04/25/20 10:00 05/01/20 08:59 Ranexa - PO 500 mg BID [facility] Administration Senna 3 tab 05/01/20 08:53 Senna - PO HS PRN CONSTIPATION Impression 1. POOJA 2. CKD 3. hyperkalemia 4. hld 5. hydronephrosis 6. urinary retention 7. cva 8. htn 9. cad s/p [place] 10. PAD 11. gerd Plan - cysto tomorrow - repeat labs in am - renal function stable - maintain louie for now - urology following
--- NOTE | 2020-05-01 15:47 | CONSULT ---
- Consultation REQUESTING PROVIDER: CONSULT REQUEST: We have been asked to surgically evaluate this patient for dvt Hospitalist:Michi Riley HISTORY OF PRESENT ILLNESS: 89 y/o M w/ PMHx HTN, HLD, [place] X3, pericarditis, BPH, CKD, PAD with prior L SFA stent, h/o CVA, GERD, a/w acute urinary retention, fall and hyperkalemia. vascular consulted for dvt. Pt denies any le edema. Reports recent hospitalization (04/06-04/10) after fall/loc at home. States he "passed out" at home and awoke several hours later on the floor. Was brought to [facility], ND was ruled out. States he has not been able to return to his baseline ambulation since this event. Reports severe burning pain in his feet at all times. Reports pain is persistent, no aggravating or alleviating factors. Was able to stand and walk 40 feet with PT today. Denies known h/o dvt in the past, denies use of anticoagulants. Was following with an scallop cutter machine in the past, has not seen him in a year. Denies cp/sob, n/v/d. Pt lives in an assisted living facility, reports he ambulates with a walker, is able to complete adls with assistance. PMHx: as above PSHx: Cystectomy Home Medications Medication Instructions Recorded Amlodipine Besylate [Norvasc -] 10 mg PO DAILY 04/06/20 Aspirin [ASA -] 81 mg PO DAILY 04/06/20 Atorvastatin Ca [Lipitor] 80 mg PO HS 04/06/20 Clopidogrel Bisulfate [Plavix] 75 mg PO DAILY 04/06/20 Multivit-Min/FA/Lycopen/Lutein 1 each PO DAILY 04/06/20 [Centrum Silver Tablet] Nitroglycerin 0.4 mg SL PRN 04/06/20 Ranolazine [Ranexa] 500 mg PO BID 04/06/20 [place] Fruit/Zinc Picoli 1 each PO DAILY 04/06/20 [[place] 450 mg Capsule] Amlodipine Besylate [Norvasc -] 10 mg PO DAILY tablet 04/10/20 Aspirin Coated [Ecotrin -] 81 mg PO DAILY tablet.ec 04/10/20 Atorvastatin Ca [Lipitor] 80 mg PO HS tablet 04/10/20 Clopidogrel Bisulfate [Plavix -] 75 mg PO DAILY tablet 04/10/20 Nitroglycerin Sublingual 0.4 mg SL Q5M PRN tab 04/10/20 [Nitrostat -] Pantoprazole Sodium [Protonix -] 40 mg PO DAILY tablet.ec 04/10/20 Ranolazine [Ranexa -] 500 mg PO BID tab 04/10/20 Allergies Allergy/AdvReac Type Severity Reaction Status Date / Time Beta-Blockers Allergy Verified 04/25/20 07:10 (Beta-Adrenergic Bloc morphine Allergy Verified 04/25/20 07:10 dutasteride [From Avodart] AdvReac Intermediate Low Blood Verified 04/28/20 14:38 Pressure tamsulosin [From Flomax] AdvReac Intermediate Low Blood Verified 04/28/20 14:37 Pressure REVIEW OF SYSTEMS: CONSTITUTIONAL: Absent: fever, chills CARDIOVASCULAR: Absent: chest pain RESPIRATORY: Absent: cough, shortness of breath GASTROINTESTINAL: Absent: abdominal pain PHYSICAL EXAM: GENERAL: Awake, alert, and fully oriented, in no acute distress. HEAD: Normal with no signs of trauma. LUNGS: No accessory muscle use on RA LOWER EXTREMITIES: B/L le with trace edema to ankles. B/l feet warm, well perfused. <2sec cap refill b/l feet. No open ulcers. No cyanosis. TTP R>L. L great toe with severe onychomycosis. B/L thighs/calfs soft no ttp Vasc 2+ b/l femorals, biphasic PT b/l, L dp biphasic right linda biphasic. Vital Signs Temperature 98.1 F 05/01/20 06:00 Pulse Rate 78 05/01/20 06:00 Respiratory Rate 18 05/01/20 08:46 Blood Pressure 123/54 L 05/01/20 06:00 O2 Sat by Pulse Oximetry (%) 97 05/01/20 08:46 Lab Results WBC 9.0 K/mm3 (4.0-10.0) 05/01/20 06:58 RBC 2.63 M/mm3 (4.00-5.60) L 05/01/20 06:58 Hgb 8.2 GM/dL (11.7-16.9) L 05/01/20 06:58 Hct 23.5 % (35.4-49) L 05/01/20 06:58 MCV 89.4 fl (80-96) 05/01/20 06:58 MCHC 35.0 g/dl (32.0-35.9) 05/01/20 06:58 RDW 14.1 % (11.9-15.9) 05/01/20 06:58 Plt Count 282 K/MM3 (134-434) 05/01/20 06:58 INR 1.07 (0.83-1.09) 04/25/20 04:00 Sodium 136 mmol/L (136-145) 05/01/20 06:58 Potassium 4.1 mmol/L (3.5-5.1) 05/01/20 06:58 Chloride 106 mmol/L (98-107) 05/01/20 06:58 Carbon Dioxide 26 mmol/L (21-32) 05/01/20 06:58 Anion Gap 5 MMOL/L (8-16) L 05/01/20 06:58 BUN 18.8 mg/dL (7-18) H 05/01/20 06:58 Creatinine 1.2 mg/dL (0.55-1.3) 05/01/20 06:58 Random Glucose 96 mg/dL (74-106) 05/01/20 06:58 Calcium 8.4 mg/dL (8.5-10.1) L 05/01/20 06:58 Blood Type A POSITIVE 04/25/20 04:00 Antibody Screen Negative 04/25/20 04:00 A/P: 89 y/o M w/ PMHx HTN, HLD, [place] X3, pericarditis, BPH, CKD, PAD with prior L SFA stent, h/o CVA, GERD, a/w acute urinary retention, fall and hyperkalemia. Vascular consulted for dvt. Duplex on 04/25 with R SFV dvt and L CFV DVT. Repeat duplex today with no L CFV DVT. Discussed images with jonny and Dr Ojeda. Per Dr Ojeda recommend anticoagulation for 6 months. Recommend discussion with pt and family due to pts recent fall Pt should f/u with Vascular as outpt for repeat venous duplex and also updated arterial studies Foot pain c/w neuropathic pain, consider gabapentin if no contraindications. Consider workup for lumbar stenosis if pain persists d/w attending Dr Ojeda
[2020-05-01] MEDS: ATORVASTATIN CA 80 MG TABLET (FP) PO SCH (21:09)
--- NOTE | 2020-05-02 09:11 | PN ---
Progress Note, Physician Chief Complaint: Patient seen and examined at the bedside, no acute events from last night, no chest pain, intermittent pain of the feet. History of Present Illness: This 89 yr old w/m with PMH of [place] X3, HTN, HLD, BPH, PAD, GERD, s/p CVA admitted via ER with an acute urinary retention, bilateral ueretrohydronephrosis, hyperkalemia, post renal azotemia, acute DVT of lower extremities and acute neuropathic pain of the feet. - Current Medication List Current Medications: Active Medications Amlodipine Besylate (Norvasc -) 10 mg PO DAILY [facility] Last Admin: 05/01/20 08:59 Dose: 10 mg Documented by: Aspirin (Ecotrin -) 81 mg PO DAILY [facility] Last Admin: 05/01/20 08:59 Dose: 81 mg Documented by: Atorvastatin Calcium (Lipitor -) 80 mg PO HS [facility] Last Admin: 05/01/20 21:09 Dose: 80 mg Documented by: Enoxaparin Sodium 40 mg/ (Enoxaparin Sodium 30 mg) 70 mg SQ BID [facility] Last Admin: 05/01/20 09:00 Dose: 70 mg Documented by: Dextrose/Sodium Chloride (D5-1/2ns -) 1,000 mls @ 40 mls/hr IV ASDIR [facility] Last Admin: 05/01/20 15:27 Dose: Not Given Documented by: Morphine Sulfate (Morphine Sulfate) 4 mg IVPUSH Q6H PRN PRN Reason: PAIN LEVEL 6-10 Last Admin: 05/01/20 23:45 Dose: 4 mg Documented by: Multivitamins/Minerals (Theragran-M) 1 each PO DAILY [facility] Last Admin: 05/01/20 08:59 Dose: 1 each Documented by: Nitroglycerin (Nitrostat -) 0.4 mg SL Q5M PRN PRN Reason: FOR CHEST PAIN Pantoprazole Sodium (Protonix -) 40 mg PO DAILY [facility] Last Admin: 05/01/20 09:12 Dose: 40 mg Documented by: Ranolazine (Ranexa -) 500 mg PO BID [facility] Last Admin: 05/01/20 21:09 Dose: 500 mg Documented by: Senna (Senna -) 3 tab PO HS PRN PRN Reason: CONSTIPATION - Objective Vital Signs: Vital Signs Temperature 98.6 F 05/02/20 02:26 Pulse Rate 69 05/02/20 02:26 Respiratory Rate 18 05/02/20 02:26 Blood Pressure 122/54 L 05/02/20 02:26 O2 Sat by Pulse Oximetry (%) 98 05/02/20 02:26 Constitutional: Yes: Well Nourished, No Distress, Calm Eyes: Yes: Conjunctiva Clear, EOM Intact HENT: Yes: Atraumatic, Normocephalic Neck: Yes: Supple, Trachea Midline Cardiovascular: Yes: Regular Rate and Rhythm Respiratory: Yes: Regular, CTA Bilaterally Gastrointestinal: Yes: Normal Bowel Sounds, Soft ...Rectal Exam: Yes: Deferred Genitourinary: Yes: Reed Present (neurogenic bladder) Breast(s): Yes: WNL Musculoskeletal: Yes: Muscle Weakness Extremities: Yes: Other (peripheral neuropathy of feet) Edema: No Peripheral Pulses WNL: Yes Integumentary: Yes: WNL Neurological: Yes: Alert, Oriented, Unsteady Gait, Weakness ...Motor Strength: LLE (muscle weakness), RLE (muscle weakness) Psychiatric: Yes: Alert, Oriented Labs: CBC, BMP 05/01/20 06:58 05/01/20 06:58 INR, PTT INR 1.07 (0.83-1.09) 04/25/20 04:00 - ....Imaging Other: Report Reviewed (lab data reviewed) Problem List - Problems (1) Hyperkalemia Code(s): E87.5 - HYPERKALEMIA (2) Acute kidney injury superimposed on CKD Code(s): N17.9 - ACUTE KIDNEY FAILURE, UNSPECIFIED; N18.9 - CHRONIC KIDNEY DISEASE, UNSPECIFIED (3) Urinary retention Code(s): R33.9 - RETENTION OF URINE, UNSPECIFIED (4) BPH (benign prostatic hyperplasia) Code(s): N40.0 - BENIGN PROSTATIC HYPERPLASIA WITHOUT LOWER URINRY TRACT SYMP (5) Chronic arterial ischemic stroke Code(s): I69.30 - UNSPECIFIED SEQUELAE OF CEREBRAL INFARCTION (6) Concussion with brief LOC Code(s): S06.0X9A - CONCUSSION W LOSS OF CONSCIOUSNESS OF UNSP DURATION, INIT (7) Coronary artery disease Code(s): I25.10 - ATHSCL HEART DISEASE OF [place] CORONARY ARTERY W/O ANG PCTRS (8) GERD (gastroesophageal reflux disease) Code(s): K21.9 - GASTRO-ESOPHAGEAL REFLUX DISEASE WITHOUT ESOPHAGITIS (9) History of hydrocelectomy Code(s): Z98.890 - OTHER SPECIFIED POSTPROCEDURAL STATES (10) Hyperlipidemia Code(s): E78.5 - HYPERLIPIDEMIA, UNSPECIFIED (11) Hypertension Code(s): I10 - ESSENTIAL (PRIMARY) HYPERTENSION (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 Code(s): I25.2 - OLD MYOCARDIAL INFARCTION (13) Syncope and collapse Code(s): R55 - SYNCOPE AND COLLAPSE (14) Constipation Code(s): K59.00 - CONSTIPATION, UNSPECIFIED Assessment/Plan Assessment/plan: acute urinary retention, bilateral ureterohydronephrosis, hyperkalemia, post renal azotemia, acute iron deficiency anemia, BPH, HTN, HLD, PAD, GERD, s/p CVA, [place] X3; repeat vascular study demonstrated no evidence of DVT in left lower extremity and a nonocclusive thrombus/DVT in the proximal right superficial femoral vein; IV fluids for gentle hydration; blood transfusion for anemia; gabapentin for neuropathic pain; SQ Lovenox and aspirin for DVT; IV venofer for iron deficiency anemia; amlodipine for HTN; atorvastatin for HLD, NTG and Ranexa for CAD; IV morphine with taper for neuropathic pain; oral pantoprazole for GI prophylaxis; senna for constipation; physical therapy for deconditioning; patient is medically cleared for cystoscopy.
[2020-05-02] MEDS ORDERED: MORPHINE SULFATE 2 MG/ML VIAL IVPUSH PRN (09:20)
[2020-05-02] MEDS: PANTOPRAZOLE 40 MG TABLET PO SCH (09:26)
[2020-05-02] MEDS: RANOLAZINE E.R. 500 MG TABLET (FP) PO SCH ×2 (09:26→21:25)
[2020-05-02] MEDS: amLODIPine BESYLATE 10 MG TABLET (FP) PO SCH (09:26)
[2020-05-02] MEDS: MULTIVITAMINS THER W-MINERALS COMBO TABLET (FP) PO SCH (09:26)
[2020-05-02] MEDS: ASPIRIN COATED 81 MG TABLET.EC PO SCH (09:26)
[2020-05-02 10:06] LABS: BASO % 0.9 % (0-2.0); EOS % 5.9 % (0-4.5); HEMATOCRIT 27.4 % (35.4-49); HEMOGLOBIN 9.4 GM/dL (11.7-16.9); LYMPH % 21.7 % (8-40); MCH 30.4 pg (25.7-33.7); MCHC 34.2 g/dl (32.0-35.9); MEAN CELL VOLUME 88.9 fl (80-96); MEAN PLT VOLUME 7.3 fl (7.5-11.1); MONO % 10.6 % (3.8-10.2); NEUT % 60.9 % (42.8-82.8); PLATELET COUNT 284 K/MM3 (134-434); RBC 3.08 M/mm3 (4.00-5.60); RDW 13.9 % (11.9-15.9); WHITE BLOOD COUNT 7.1 K/mm3 (4.0-10.0)
[2020-05-02] MEDS ORDERED: MIDAZOLAM HCL 2 MG/2 ML SINGLE DOSE VIAL ONE (10:27)
[2020-05-02 10:28] LABS: BLOOD UREA NITROGEN 15.2 mg/dL (7-18); CALCIUM 8.6 mg/dL (8.5-10.1); CREATININE 1.2 mg/dL (0.55-1.3); POTASSIUM 4.2 mmol/L (3.5-5.1)
[2020-05-02] MEDS ORDERED: ceFAZolin SODIUM 1 GM VIAL ONE (13:00)
[2020-05-02] MEDS ORDERED: ceFAZolin SODIUM 1 GM VIAL IVPB ONE (13:03)
[2020-05-02] MEDS ORDERED: DEXAMETHASONE SOD PHOSPHATE 4 MG/1 ML VIAL ONE (13:12)
--- NOTE | 2020-05-02 13:48 | OP ---
Operative Note - Note: Operative Date: 05/02/20 Pre-Operative Diagnosis: bph with luts and obst. Operation: turp/tuvp Findings: bipolar prostate hypertrophy and gr. 4 bladder trabeculation Post-Operative Diagnosis: Same as Pre-op Surgeon: Ramiro Galindo Anesthesia: General Specimens Removed: prostate chips Estimated Blood Loss (mls): 0 Instrument used (Debridements only): 0 Drains & Tubes with Location: 24f 30cc -3-way louie with cbi Drains, Volume Out (mls): 0 Blood Volume Replaced (mls): 0 Fluid Volume Replaced (mls): 0 Operative Report Dictated: Yes
[2020-05-02] MEDS ORDERED: ONDANSETRON 4 MG/2 ML VIAL IVPUSH PRN (13:58)
[2020-05-02] MEDS ORDERED: GABAPENTIN 100 MG CAPSULE PO SCH (14:00)
[2020-05-02] MEDS ORDERED: LACTATED RINGERS SOLUTION 1,000 ML IV SCH (14:00)
[2020-05-02] MEDS ORDERED: NITROGLYCERIN SUBLINGUAL 1/150 0.4 MG TAB SL PRN (14:28)
[2020-05-02] MEDS: DEXTROSE 5%-0.45% SALINE 1,000 ML IV SCH (14:50)
--- NOTE | 2020-05-02 14:50 | PN ---
Progress Note, Physician History of Present Illness: Pt seen and examined at bedside. He is awake and alert. He is going for cysto today. - Current Medication List Current Medications: Active Medications Amlodipine Besylate (Norvasc -) 10 mg PO DAILY [facility] Aspirin (Ecotrin -) 81 mg PO DAILY [facility] Atorvastatin Calcium (Lipitor -) 80 mg PO HS [facility] Gabapentin (Neurontin -) 100 mg PO TID [facility] Lactated Ringer's (Lactated Ringers Solution) 1,000 mls @ 75 mls/hr IV ASDIR [facility] Dextrose/Sodium Chloride (D5-1/2ns -) 1,000 mls @ 40 mls/hr IV ASDIR [facility] Morphine Sulfate (Morphine Sulfate) 2 mg IVPUSH Q6H PRN PRN Reason: PAIN LEVEL 6-10 Multivitamins/Minerals (Theragran-M) 1 each PO DAILY [facility] Nitroglycerin (Nitrostat -) 0.4 mg SL Q5M PRN PRN Reason: FOR CHEST PAIN Ondansetron HCl (Zofran Injection) 4 mg IVPUSH Q6H PRN PRN Reason: NAUSEA AND/OR VOMITING Pantoprazole Sodium (Protonix -) 40 mg PO DAILY [facility] Ranolazine (Ranexa -) 500 mg PO BID [facility] Senna (Senna -) 3 tab PO HS PRN PRN Reason: CONSTIPATION - Objective Vital Signs: Vital Signs Temperature 98.6 F 05/02/20 02:26 Pulse Rate 71 05/02/20 14:35 Respiratory Rate 18 05/02/20 14:35 Blood Pressure 136/56 L 05/02/20 14:35 O2 Sat by Pulse Oximetry (%) 100 05/02/20 14:35 Constitutional: Yes: Calm Eyes: Yes: Conjunctiva Clear HENT: Yes: Atraumatic Neck: Yes: Supple Cardiovascular: Yes: S1, S2 Respiratory: Yes: CTA Bilaterally Gastrointestinal: Yes: Normal Bowel Sounds, Soft Genitourinary: Yes: Reed Present Edema: No Neurological: Yes: Oriented Psychiatric: Yes: Oriented Labs: CBC, BMP 05/02/20 09:42 05/02/20 09:42 INR, PTT INR 1.07 (0.83-1.09) 04/25/20 04:00 Problem List - Problems (1) Acute kidney injury superimposed on CKD Code(s): N17.9 - ACUTE KIDNEY FAILURE, UNSPECIFIED; N18.9 - CHRONIC KIDNEY DISEASE, UNSPECIFIED (2) Hyperkalemia Code(s): E87.5 - HYPERKALEMIA (3) Urinary retention Code(s): R33.9 - RETENTION OF URINE, UNSPECIFIED (4) BPH (benign prostatic hyperplasia) Code(s): N40.0 - BENIGN PROSTATIC HYPERPLASIA WITHOUT LOWER URINRY TRACT SYMP (5) Coronary artery disease Code(s): I25.10 - ATHSCL HEART DISEASE OF [place] CORONARY ARTERY W/O ANG PCTRS (6) History of hydrocelectomy Code(s): Z98.890 - OTHER SPECIFIED POSTPROCEDURAL STATES (7) Hyperlipidemia Code(s): E78.5 - HYPERLIPIDEMIA, UNSPECIFIED (8) Hypertension Code(s): I10 - ESSENTIAL (PRIMARY) HYPERTENSION (9) Syncope and collapse Code(s): R55 - SYNCOPE AND COLLAPSE Assessment/Plan Current Medications Generic Name Dose Route Start Last Admin Trade Name Freq PRN Reason Stop Dose Admin Amlodipine Besylate 10 mg 05/03/20 10:00 Norvasc - PO DAILY [facility] Aspirin 81 mg 05/03/20 10:00 Ecotrin - PO DAILY [facility] Atorvastatin Calcium 80 mg 05/02/20 22:00 Lipitor - PO HS [facility] Gabapentin 100 mg 05/02/20 22:00 Neurontin - PO TID [facility] Lactated Ringer's 1,000 mls @ 75 mls/hr 05/02/20 14:00 Lactated Ringers Solution IV ASDIR [facility] Dextrose/Sodium Chloride 1,000 mls @ 40 mls/hr 05/02/20 14:28 D5-1/2ns - IV ASDIR [facility] Morphine Sulfate 2 mg 05/02/20 14:28 Morphine Sulfate IVPUSH Q6H PRN PAIN LEVEL 6-10 Multivitamins/Minerals 1 each 05/03/20 10:00 Theragran-M PO DAILY [facility] Nitroglycerin 0.4 mg 05/02/20 14:28 Nitrostat - SL Q5M PRN FOR CHEST PAIN Ondansetron HCl 4 mg 05/02/20 13:58 Zofran Injection IVPUSH Q6H PRN NAUSEA AND/OR VOMITING Pantoprazole Sodium 40 mg 05/03/20 10:00 Protonix - PO DAILY [facility] Ranolazine 500 mg 05/02/20 22:00 Ranexa - PO BID [facility] Senna 3 tab 05/02/20 14:28 Senna - PO HS PRN CONSTIPATION Impression 1. POOJA 2. CKD 3. hyperkalemia 4. hld 5. hydronephrosis 6. urinary retention 7. cva 8. htn 9. cad s/p VT 10. PAD 11. gerd Plan - cysto today - renal function stable - can cont fluids - no acute change in management - avoid nsaids - urology following
[2020-05-02] MEDS: MORPHINE SULFATE 2 MG/ML VIAL IVPUSH PRN ×2 (15:52→21:24)
--- NOTE | 2020-05-02 20:03 | PN ---
DATE OF VISIT: DATE OF DICTATION: 05/02/2020 PREOPERATIVE NOTE The patient is an 89-year-old male comes in with history of urinary retention, azotemia, and bilateral hydroureteronephrosis. He does have history of high blood pressure, high cholesterol, coronary artery disease, pericarditis, a CVA, GERD, and severe prostatism for which he has been taking saw palmetto. A CAT scan revealed mild bilateral hydronephrosis. On admission, his creatinine was 4.1, presently it is 1.7. Patient was placed on Flomax and given several trials at voiding. These were unsuccessful. His latest laboratory reveals a white count of 7.1, hemoglobin and hematocrit of 9.4 over 27.4, his BUN and creatinine are 15.2 over 1.1, the PT/INR are within normal limits. His urine culture shows no growth. Patient will undergo a cystoscopy with a possible TURP. This is explained in detail to patient and he agrees. Patient will undergo an elective circumcision as an outpatient, will treat it first with Lotrisone cream and follow him in the office. Usama [id number]
--- NOTE | 2020-05-02 20:53 | OP ---
DATE OF OPERATION: 05/02/2020 PREOPERATIVE DIAGNOSIS: Obstructive prostatism, recurrent urinary retention, postrenal azotemia, bilateral hydronephrosis. POSTOPERATIVE DIAGNOSIS: Obstructing prostate gland. OPERATIVE PROCEDURE: Cystourethroscopy, transurethral resection of prostate, and transurethral vaporization of prostate. ANESTHESIA: General. DESCRIPTION OF PROCEDURE: Under above stated anesthesia, patient was prepped and draped in the usual sterile manner. He was placed in the dorsal lithotomy position. Cystoscopy revealed a normal anterior urethra. Prostatic urethra measured 4 cm in length. There was bipolar hypertrophy with lateral lobe kissing . The bladder was entered. Urine was collected for C&S. Inspection of the bladder revealed a grade 4 trabeculation throughout with multiple diverticula and saccules. Due to the bladder mucosa, ureteral orifices were unable to be visualized. A bipolar resectoscope was inserted, and the prostate was resected in the usual fashion. Hemostasis was secured with electrocoagulation. Prostate chips were evacuated with an [employer] evacuator. A bipolar button was introduced, and excess tissue was vaporized. Again, bleeders were cauterized for hemostasis. No other free tissue was in the bladder, therefore the scope was removed. A 24-[place], 30-mL, 3-way Reed was inserted. This was connected to continuous bladder irrigation. The patient tolerated the procedure well. He returned to the recovery room in good condition. Usama [id number]
[2020-05-02] MEDS: GABAPENTIN 100 MG CAPSULE PO SCH (21:25)
[2020-05-02] MEDS: SENNOSIDES 8.6MG TABLET (FP) PO PRN (21:25)
[2020-05-02] MEDS: ATORVASTATIN CA 80 MG TABLET (FP) PO SCH (21:25)
[2020-05-03] MEDS: MORPHINE SULFATE 2 MG/ML VIAL IVPUSH PRN (05:36)
[2020-05-03] MEDS: GABAPENTIN 100 MG CAPSULE PO SCH ×3 (05:36→21:09)
[2020-05-03 06:48] LABS: BASO % 0.2 % (0-2.0); EOS % 0.1 % (0-4.5); HEMATOCRIT 31.2 % (35.4-49); HEMOGLOBIN 10.5 GM/dL (11.7-16.9); LYMPH % 6.6 % (8-40); MCHC 33.7 g/dl (32.0-35.9); MEAN CELL VOLUME 88.9 fl (80-96); MEAN PLT VOLUME 7.3 fl (7.5-11.1); MONO % 6.1 % (3.8-10.2); PLATELET COUNT 353 K/MM3 (134-434); RBC 3.51 M/mm3 (4.00-5.60); RDW 14.2 % (11.9-15.9); WHITE BLOOD COUNT 18.9 K/mm3 (4.0-10.0)
[2020-05-03 07:14] LABS: BLOOD UREA NITROGEN 15.6 mg/dL (7-18); CREATININE 1.3 mg/dL (0.55-1.3); POTASSIUM 4.3 mmol/L (3.5-5.1)
--- NOTE | 2020-05-03 09:05 | PN ---
Progress Note, Physician Chief Complaint: Patient seen and examined at the bedside, no acute events from last night, no signs of hematuria, c/o constipation. 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 - Current Medication List Current Medications: Active Medications Amlodipine Besylate (Norvasc -) 10 mg PO DAILY [facility] Aspirin (Ecotrin -) 81 mg PO DAILY [facility] Atorvastatin Calcium (Lipitor -) 80 mg PO HS [facility] Last Admin: 05/02/20 21:25 Dose: 80 mg Documented by: Gabapentin (Neurontin -) 100 mg PO TID [facility] Last Admin: 05/03/20 05:36 Dose: 100 mg Documented by: Lactated Ringer's (Lactated Ringers Solution) 1,000 mls @ 75 mls/hr IV ASDIR [facility] Last Admin: 05/02/20 15:53 Dose: Not Given Documented by: Dextrose/Sodium Chloride (D5-1/2ns -) 1,000 mls @ 40 mls/hr IV ASDIR [facility] Last Admin: 05/02/20 14:50 Dose: 0 mls Documented by: Morphine Sulfate (Morphine Sulfate) 2 mg IVPUSH Q6H PRN PRN Reason: PAIN LEVEL 6-10 Last Admin: 05/03/20 05:36 Dose: 2 mg Documented by: Multivitamins/Minerals (Theragran-M) 1 each PO DAILY [facility] Nitroglycerin (Nitrostat -) 0.4 mg SL Q5M PRN PRN Reason: FOR CHEST PAIN Ondansetron HCl (Zofran Injection) 4 mg IVPUSH Q6H PRN PRN Reason: NAUSEA AND/OR VOMITING Pantoprazole Sodium (Protonix -) 40 mg PO DAILY [facility] Ranolazine (Ranexa -) 500 mg PO BID [facility] Last Admin: 05/02/20 21:25 Dose: 500 mg Documented by: Senna (Senna -) 3 tab PO HS PRN PRN Reason: CONSTIPATION Last Admin: 05/02/20 21:25 Dose: 3 tab Documented by: - Objective Vital Signs: Vital Signs Temperature 98.2 F 05/03/20 06:00 Pulse Rate 72 05/03/20 06:00 Respiratory Rate 18 05/03/20 06:00 Blood Pressure 124/59 L 05/03/20 06:00 O2 Sat by Pulse Oximetry (%) 100 05/03/20 06:00 Constitutional: Yes: Well Nourished, Calm, Mild Distress (intermittent pain of feet) Eyes: Yes: Conjunctiva Clear, EOM Intact HENT: Yes: Atraumatic, Normocephalic Neck: Yes: Supple, Trachea Midline Cardiovascular: Yes: Regular Rate and Rhythm Respiratory: Yes: Regular, CTA Bilaterally Gastrointestinal: Yes: Normal Bowel Sounds, Soft, Other (constipation) ...Rectal Exam: Yes: Deferred Genitourinary: Yes: Reed Present, Incontinence Breast(s): Yes: WNL Musculoskeletal: Yes: Muscle Weakness Extremities: Yes: Other (bilateral DVT of lower extremities) Edema: No Peripheral Pulses WNL: Yes Integumentary: Yes: WNL Neurological: Yes: Alert, Oriented, Unsteady Gait, Weakness ...Motor Strength: LLE (muscle weakness), RLE (muscle weakness) Psychiatric: Yes: Alert, Oriented Labs: CBC, BMP 05/03/20 06:24 05/03/20 06:24 INR, PTT INR 1.07 (0.83-1.09) 04/25/20 04:00 - ....Imaging Other: Report Reviewed (lab data reviewed) Problem List - Problems (1) Hyperkalemia Code(s): E87.5 - HYPERKALEMIA (2) Acute kidney injury superimposed on CKD Code(s): N17.9 - ACUTE KIDNEY FAILURE, UNSPECIFIED; N18.9 - CHRONIC KIDNEY DISEASE, UNSPECIFIED (3) Urinary retention Code(s): R33.9 - RETENTION OF URINE, UNSPECIFIED (4) BPH (benign prostatic hyperplasia) Code(s): N40.0 - BENIGN PROSTATIC HYPERPLASIA WITHOUT LOWER URINRY TRACT SYMP (5) Chronic arterial ischemic stroke Code(s): I69.30 - UNSPECIFIED SEQUELAE OF CEREBRAL INFARCTION (6) Concussion with brief LOC Code(s): S06.0X9A - CONCUSSION W LOSS OF CONSCIOUSNESS OF UNSP DURATION, INIT (7) Coronary artery disease Code(s): I25.10 - ATHSCL HEART DISEASE OF [place] CORONARY ARTERY W/O ANG PCTRS (8) GERD (gastroesophageal reflux disease) Code(s): K21.9 - GASTRO-ESOPHAGEAL REFLUX DISEASE WITHOUT ESOPHAGITIS (9) History of hydrocelectomy Code(s): Z98.890 - OTHER SPECIFIED POSTPROCEDURAL STATES (10) Hyperlipidemia Code(s): E78.5 - HYPERLIPIDEMIA, UNSPECIFIED (11) Hypertension Code(s): I10 - ESSENTIAL (PRIMARY) HYPERTENSION (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 Code(s): I25.2 - OLD MYOCARDIAL INFARCTION (13) Syncope and collapse Code(s): R55 - SYNCOPE AND COLLAPSE (14) Constipation Code(s): K59.00 - CONSTIPATION, UNSPECIFIED Assessment/Plan Assessment/plan: acute neutrophilic leukocytosis, acute urinary retention, bilateral ureterohydronephrosis, post renal azotemia, hyperkalemia, 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
[2020-05-03] MEDS: ASPIRIN COATED 81 MG TABLET.EC PO SCH (09:22)
[2020-05-03] MEDS: RANOLAZINE E.R. 500 MG TABLET (FP) PO SCH ×2 (09:22→21:09)
[2020-05-03] MEDS: amLODIPine BESYLATE 10 MG TABLET (FP) PO SCH (09:22)
[2020-05-03] MEDS: PANTOPRAZOLE 40 MG TABLET PO SCH (09:22)
[2020-05-03] MEDS: MULTIVITAMINS THER W-MINERALS COMBO TABLET (FP) PO SCH (09:22)
[2020-05-03] MEDS: DOCUSATE SODIUM 100 MG CAPSULE (FP) PO SCH ×2 (09:29→21:08)
[2020-05-03] MEDS: ENOXAPARIN NA (PORCINE) 80 MG/0.8 ML DISP.SYRIN SQ SCH ×2 (09:54→21:08)
[2020-05-03] MEDS: DEXTROSE 5%-0.45% SALINE 1,000 ML IV SCH ×2 (10:01→16:40)
--- NOTE | 2020-05-03 10:29 | CON.ID ---
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: Yes: CVA Cardio/Vascular: Yes: CAD, HTN, Hyperlipdemia, MT Pulmonary: No: Asthma, Bronchitis, Cancer, COPD, O2 Dependent, Pneumonia, Previously Intubated, Pulmonary Embolus, Pulmonary Fibrosis, Sleep Apnea, Other Gastrointestinal: Yes: GERD Hepatobiliary: No: Cirrhosis, Cholelithiasis, Cholecystitis, Choledocholithiasis, Hepatitis A, Hepatitis B, Hepatitis C, Other Renal/: Yes: BPH Infectious Disease: No: AIDS, C-Diff, Herpes Zoster, HIV, MRSA, STD's, Tuberculosis, VREF, Other Psych: No: Addictions, Anxiety, Bipolar, Depression, Panic, Psychosis, Schizophrenia, Other Musculoskeletal: Yes: Osteoarthritis Rheumatology: No: Fibromyalgia, Gout, Lupus, Rheumatoid Arthritis, Sarcoidosis, Vasculitis, Other ENT: No: Allergic Rhinitis, Sinusitis, Other Endocrine: No: [place]'s Disease, [place]'s Disease, Diabetes Insipidus, Diabetes Mellitus, Hyperparathyroidism, Hyperthyroidism, Hypothyroidism, Osteopenia, SIADH, Other Dermatology: No: Basal Cell, Cellulitis, Eczema, Melanoma, Psoriasis, Squamous Cell, Other - Past Surgical History Additional Surgical History: cyst in testicle lanced many years ago - Alcohol/Substance Use Hx Alcohol Use: No - Smoking History Smoking history: Former smoker Have you smoked in the past 12 months: No Aproximately how many cigarettes per day: 20 If you are a former smoker, when did you quit?: 20 years ago - Social History Usual Living Arrangement: Assisted Living ADL: Support Services History of Recent Travel: No Home Medications - Allergies Allergies/Adverse Reactions: Allergies Allergy/AdvReac Type Severity Reaction Status Date / Time Beta-Blockers Allergy Verified 04/25/20 07:10 (Beta-Adrenergic Bloc morphine Allergy Verified 04/25/20 07:10 dutasteride [From Avodart] AdvReac Intermediate Low Blood Verified 04/28/20 14:38 Pressure tamsulosin [From Flomax] AdvReac Intermediate Low Blood Verified 04/28/20 14:37 Pressure - Home Medications Home Medications: Ambulatory Orders Amlodipine Besylate [Norvasc -] 10 mg PO DAILY 04/06/20 Aspirin [ASA -] 81 mg PO DAILY 04/06/20 Atorvastatin Ca [Lipitor] 80 mg PO HS 04/06/20 Clopidogrel Bisulfate [Plavix] 75 mg PO DAILY 04/06/20 Multivit-Min/FA/Lycopen/Lutein [Centrum Silver Tablet] 1 each PO DAILY 04/06/20 Nitroglycerin 0.4 mg SL PRN 04/06/20 Ranolazine [Ranexa] 500 mg PO BID 04/06/20 Saw [place] Fruit/Zinc Picoli [Saw [place] 450 mg Capsule] 1 each PO DAILY 04/06/20 Amlodipine Besylate [Norvasc -] 10 mg PO DAILY tablet 04/10/20 Aspirin Coated [Ecotrin -] 81 mg PO DAILY tablet.ec 04/10/20 Atorvastatin Ca [Lipitor] 80 mg PO HS tablet 04/10/20 Clopidogrel Bisulfate [Plavix -] 75 mg PO DAILY tablet 04/10/20 Nitroglycerin Sublingual [Nitrostat -] 0.4 mg SL Q5M PRN tab 04/10/20 Pantoprazole Sodium [Protonix -] 40 mg PO DAILY tablet.ec 04/10/20 Ranolazine [Ranexa -] 500 mg PO BID tab 04/10/20 Family Medical History Family History: Denies Review of Systems - Review of Systems Constitutional: reports: No Symptoms. denies: Chills, Fever Eyes: reports: No Symptoms HENT: reports: No Symptoms Neck: reports: No Symptoms Cardiovascular: reports: No Symptoms Respiratory: reports: No Symptoms Gastrointestinal: reports: No Symptoms. denies: Abdominal Pain, Constipation Genitourinary: reports: No Symptoms Musculoskeletal: reports: No Symptoms Physical Exam Vital Signs: Vital Signs Temperature 98.2 F 05/03/20 06:00 Pulse Rate 72 05/03/20 06:00 Respiratory Rate 18 05/03/20 06:00 Blood Pressure 124/59 L 05/03/20 06:00 O2 Sat by Pulse Oximetry (%) 100 05/03/20 06:00 Constitutional: Yes: No Distress, Thin Eyes: Yes: Conjunctiva Clear HENT: Yes: Atraumatic, Normocephalic Neck: Yes: Supple Cardiovascular: Yes: Regular Rate and Rhythm Respiratory: Yes: Regular, CTA Bilaterally, Diminished (at bases) Gastrointestinal: Yes: Normal Bowel Sounds, Soft ...Rectal Exam: Yes: Deferred Renal/: Yes: Louie Present Edema: No Neurological: Yes: Alert, Oriented Labs: CBC, BMP 05/03/20 06:24 05/03/20 06:24 Problem List - Problems (1) Leukocytosis Code(s): D72.829 - ELEVATED WHITE BLOOD CELL COUNT, UNSPECIFIED (2) BPH (benign prostatic hyperplasia) Code(s): N40.0 - BENIGN PROSTATIC HYPERPLASIA WITHOUT LOWER URINRY TRACT SYMP Assessment/Plan blood cultures now cxray now no value to urine cultures as there is ongoing CBI will start rocephin repeat labs in am
[2020-05-03] MEDS ORDERED: cefTRIAXone SODIUM 1 GM VIAL ONE (13:24)
[2020-05-03] MEDS ORDERED: DEXTROSE 5%-WATER - 50 ML IVPB ONE (13:24)
[2020-05-03] MEDS: CEFTRIAXONE 1 GM in DEXTROSE 5%-WATER - 50 ML IVPB SCH (13:43)
[2020-05-03] MEDS ORDERED: DOCUSATE SODIUM 100 MG CAPSULE (FP) PO SCH (14:00)
--- NOTE | 2020-05-03 14:53 | PN ---
Progress Note, Physician History of Present Illness: Pt seen and examined at bedside. He is awake and alert. He is tolerating diet. His wbc elevated today. - Current Medication List Current Medications: Active Medications Acetaminophen (Tylenol -) 650 mg PO Q6H PRN PRN Reason: PAIN LEVEL 6-10 Amlodipine Besylate (Norvasc -) 10 mg PO DAILY [facility] Last Admin: 05/03/20 09:22 Dose: 10 mg Documented by: Aspirin (Ecotrin -) 81 mg PO DAILY [facility] Last Admin: 05/03/20 09:22 Dose: 81 mg Documented by: Atorvastatin Calcium (Lipitor -) 80 mg PO HS [facility] Last Admin: 05/02/20 21:25 Dose: 80 mg Documented by: Docusate Sodium (Colace -) 100 mg PO BID [facility] Last Admin: 05/03/20 09:29 Dose: 100 mg Documented by: Enoxaparin Sodium (Lovenox -) 70 mg SQ Q12H [facility] Last Admin: 05/03/20 09:54 Dose: 70 mg Documented by: Gabapentin (Neurontin -) 100 mg PO TID [facility] Last Admin: 05/03/20 13:43 Dose: 100 mg Documented by: Dextrose/Sodium Chloride (D5-1/2ns -) 1,000 mls @ 40 mls/hr IV ASDIR [facility] Last Admin: 05/03/20 10:01 Dose: 40 mls/hr Documented by: Ceftriaxone Sodium 1 gm/ (Dextrose) 50 mls @ 100 mls/hr IVPB DAILY [facility]; Protocol Last Admin: 05/03/20 13:43 Dose: 100 mls/hr Documented by: Multivitamins/Minerals (Theragran-M) 1 each PO DAILY [facility] Last Admin: 05/03/20 09:22 Dose: 1 each Documented by: Nitroglycerin (Nitrostat -) 0.4 mg SL Q5M PRN PRN Reason: FOR CHEST PAIN Ondansetron HCl (Zofran Injection) 4 mg IVPUSH Q6H PRN PRN Reason: NAUSEA AND/OR VOMITING Pantoprazole Sodium (Protonix -) 40 mg PO DAILY [facility] Last Admin: 05/03/20 09:22 Dose: 40 mg Documented by: Ranolazine (Ranexa -) 500 mg PO BID [facility] Last Admin: 05/03/20 09:22 Dose: 500 mg Documented by: Senna (Senna -) 3 tab PO HS PRN PRN Reason: CONSTIPATION Last Admin: 05/02/20 21:25 Dose: 3 tab Documented by: - Objective Vital Signs: Vital Signs Temperature 98.2 F 05/03/20 10:00 Pulse Rate 72 05/03/20 06:00 Respiratory Rate 18 05/03/20 09:00 Blood Pressure 124/59 L 05/03/20 06:00 O2 Sat by Pulse Oximetry (%) 99 05/03/20 09:00 Constitutional: Yes: Calm Eyes: Yes: Conjunctiva Clear HENT: Yes: Atraumatic Neck: Yes: Supple Cardiovascular: Yes: S1, S2 Respiratory: Yes: CTA Bilaterally Gastrointestinal: Yes: Soft Genitourinary: Yes: Reed Present Musculoskeletal: Yes: WNL Edema: No Neurological: Yes: Oriented Psychiatric: Yes: Oriented Labs: CBC, BMP 05/03/20 06:24 05/03/20 06:24 INR, PTT INR 1.07 (0.83-1.09) 04/25/20 04:00 Problem List - Problems (1) Acute kidney injury superimposed on CKD Code(s): N17.9 - ACUTE KIDNEY FAILURE, UNSPECIFIED; N18.9 - CHRONIC KIDNEY DISEASE, UNSPECIFIED (2) Hyperkalemia Code(s): E87.5 - HYPERKALEMIA (3) Urinary retention Code(s): R33.9 - RETENTION OF URINE, UNSPECIFIED (4) BPH (benign prostatic hyperplasia) Code(s): N40.0 - BENIGN PROSTATIC HYPERPLASIA WITHOUT LOWER URINRY TRACT SYMP (5) Coronary artery disease Code(s): I25.10 - ATHSCL HEART DISEASE OF [place] CORONARY ARTERY W/O ANG PCTRS (6) History of hydrocelectomy Code(s): Z98.890 - OTHER SPECIFIED POSTPROCEDURAL STATES (7) Hyperlipidemia Code(s): E78.5 - HYPERLIPIDEMIA, UNSPECIFIED (8) Hypertension Code(s): I10 - ESSENTIAL (PRIMARY) HYPERTENSION (9) Syncope and collapse Code(s): R55 - SYNCOPE AND COLLAPSE Assessment/Plan Current Medications Generic Name Dose Route Start Last Admin Trade Name Freq PRN Reason Stop Dose Admin Acetaminophen 650 mg 05/03/20 09:07 Tylenol - PO Q6H PRN PAIN LEVEL 6-10 Amlodipine Besylate 10 mg 05/03/20 10:00 05/03/20 09:22 Norvasc - PO 10 mg DAILY [facility] Administration Aspirin 81 mg 05/03/20 10:00 05/03/20 09:22 Ecotrin - PO 81 mg DAILY [facility] Administration Atorvastatin Calcium 80 mg 05/02/20 22:00 05/02/20 21:25 Lipitor - PO 80 mg HS [facility] Administration Docusate Sodium 100 mg 05/03/20 10:00 05/03/20 09:29 Colace - PO 100 mg BID [facility] Administration Enoxaparin Sodium 70 mg 05/03/20 09:15 05/03/20 09:54 Lovenox - SQ 70 mg Q12H [facility] Administration Gabapentin 100 mg 05/02/20 22:00 05/03/20 13:43 Neurontin - PO 100 mg TID [facility] Administration Dextrose/Sodium Chloride 1,000 mls @ 40 mls/hr 05/02/20 14:28 05/03/20 10:01 D5-1/2ns - IV 40 mls/hr ASDIR [facility] Administration Ceftriaxone Sodium 1 gm/ 50 mls @ 100 mls/hr 05/03/20 12:30 05/03/20 13:43 Dextrose IVPB 100 mls/hr DAILY [facility] Administration Protocol Multivitamins/Minerals 1 each 05/03/20 10:00 05/03/20 09:22 Theragran-M PO 1 each DAILY [facility] Administration Nitroglycerin 0.4 mg 05/02/20 14:28 Nitrostat - SL Q5M PRN FOR CHEST PAIN Ondansetron HCl 4 mg 05/02/20 13:58 Zofran Injection IVPUSH Q6H PRN NAUSEA AND/OR VOMITING Pantoprazole Sodium 40 mg 05/03/20 10:00 05/03/20 09:22 Protonix - PO 40 mg DAILY [facility] Administration Ranolazine 500 mg 05/02/20 22:00 05/03/20 09:22 Ranexa - PO 500 mg BID [facility] Administration Senna 3 tab 05/02/20 14:28 05/02/20 21:25 Senna - PO 3 tab HS PRN Administration CONSTIPATION Impression 1. POOJA 2. CKD 3. hyperkalemia 4. hld 5. hydronephrosis 6. urinary retention 7. cva 8. htn 9. cad s/p [place] 10. PAD 11. gerd 12. leukocytosis Plan - follow blood cultures - cont abx - cont fluids for now - urology follow up - repeat labs in am - avoid nsaids
[2020-05-03] MEDS: ACETAMINOPHEN 325 MG TABLET (FP) PO PRN (17:52)
[2020-05-03] MEDS: SENNOSIDES 8.6MG TABLET (FP) PO PRN (21:07)
[2020-05-03] MEDS: ATORVASTATIN CA 80 MG TABLET (FP) PO SCH (21:09)
[2020-05-04] MEDS: ACETAMINOPHEN 325 MG TABLET (FP) PO PRN (05:13)
[2020-05-04] MEDS: GABAPENTIN 100 MG CAPSULE PO SCH ×3 (05:14→21:00)
[2020-05-04] MEDS ORDERED: POLYETHYLENE GLYCOL 3350 119 GM BTL PO ONE (07:58)
--- NOTE | 2020-05-04 08:01 | PN ---
Progress Note, Physician Chief Complaint: Patient seen and examined at the bedside, no acute events from last night, draining light yellow urine, c/o constipation. History of Present Illness: This 89 yr old w/m with PMH of HTN, HLD, [place] X3, PAD, s/p CVA, BPH, GERD, pericarditis admitted via ER with an acute urinary retention, bilateral ureterohydronephrosis, hyperkalemia, acute DVT of lower extremities, and post renal azotemia. - Current Medication List Current Medications: Active Medications Acetaminophen (Tylenol -) 650 mg PO Q6H PRN PRN Reason: PAIN LEVEL 6-10 Last Admin: 05/04/20 05:13 Dose: 650 mg Documented by: Amlodipine Besylate (Norvasc -) 10 mg PO DAILY [facility] Last Admin: 05/03/20 09:22 Dose: 10 mg Documented by: Aspirin (Ecotrin -) 81 mg PO DAILY [facility] Last Admin: 05/03/20 09:22 Dose: 81 mg Documented by: Atorvastatin Calcium (Lipitor -) 80 mg PO HS [facility] Last Admin: 05/03/20 21:09 Dose: 80 mg Documented by: Docusate Sodium (Colace -) 100 mg PO BID [facility] Last Admin: 05/03/20 21:08 Dose: 100 mg Documented by: Enoxaparin Sodium (Lovenox -) 70 mg SQ Q12H [facility] Last Admin: 05/03/20 21:08 Dose: 70 mg Documented by: Gabapentin (Neurontin -) 100 mg PO TID [facility] Last Admin: 05/04/20 05:14 Dose: 100 mg Documented by: Dextrose/Sodium Chloride (D5-1/2ns -) 1,000 mls @ 40 mls/hr IV ASDIR [facility] Last Admin: 05/03/20 16:40 Dose: Not Given Documented by: Ceftriaxone Sodium 1 gm/ (Dextrose) 50 mls @ 100 mls/hr IVPB DAILY [facility]; Protoco l Last Admin: 05/03/20 13:43 Dose: 100 mls/hr Documented by: Multivitamins/Minerals (Theragran-M) 1 each PO DAILY [facility] Last Admin: 05/03/20 09:22 Dose: 1 each Documented by: Nitroglycerin (Nitrostat -) 0.4 mg SL Q5M PRN PRN Reason: FOR CHEST PAIN Ondansetron HCl (Zofran Injection) 4 mg IVPUSH Q6H PRN PRN Reason: NAUSEA AND/OR VOMITING Pantoprazole Sodium (Protonix -) 40 mg PO DAILY [facility] Last Admin: 05/03/20 09:22 Dose: 40 mg Documented by: Ranolazine (Ranexa -) 500 mg PO BID [facility] Last Admin: 05/03/20 21:09 Dose: 500 mg Documented by: Senna (Senna -) 3 tab PO HS PRN PRN Reason: CONSTIPATION Last Admin: 05/03/20 21:07 Dose: 3 tab Documented by: - Objective Vital Signs: Vital Signs Temperature 98.7 F 05/04/20 05:00 Pulse Rate 76 05/04/20 05:00 Respiratory Rate 18 05/04/20 05:00 Blood Pressure 127/59 L 05/04/20 05:00 O2 Sat by Pulse Oximetry (%) 94 L 05/04/20 05:00 Constitutional: Yes: Well Nourished, Calm, Mild Distress (pain of feet on a scale 1 to 10, 3) Eyes: Yes: Conjunctiva Clear, EOM Intact HENT: Yes: Atraumatic, Normocephalic Neck: Yes: Supple, Trachea Midline Cardiovascular: Yes: Regular Rate and Rhythm Respiratory: Yes: Regular, CTA Bilaterally Gastrointestinal: Yes: Normal Bowel Sounds, Soft ...Rectal Exam: Yes: Deferred Genitourinary: Yes: Reed Present, Incontinence Breast(s): Yes: WNL Musculoskeletal: Yes: Muscle Weakness Extremities: Yes: WNL Edema: No Peripheral Pulses WNL: Yes Integumentary: Yes: WNL Neurological: Yes: Alert, Oriented, Unsteady Gait, Weakness, Other (peripheral neuropathy of feet) ...Motor Strength: LLE (muscle weakness), RLE (muscle weakness) Psychiatric: Yes: Alert, Oriented Labs: INR, PTT INR 1.07 (0.83-1.09) 04/25/20 04:00 - ....Imaging Other: Report Reviewed (lab data reviewed) Problem List - Problems (1) Hyperkalemia Code(s): E87.5 - HYPERKALEMIA (2) Acute kidney injury superimposed on CKD Code(s): N17.9 - ACUTE KIDNEY FAILURE, UNSPECIFIED; N18.9 - CHRONIC KIDNEY DISEASE, UNSPECIFIED (3) Urinary retention Code(s): R33.9 - RETENTION OF URINE, UNSPECIFIED (4) BPH (benign prostatic hyperplasia) Code(s): N40.0 - BENIGN PROSTATIC HYPERPLASIA WITHOUT LOWER URINRY TRACT SYMP (5) Chronic arterial ischemic stroke Code(s): I69.30 - UNSPECIFIED SEQUELAE OF CEREBRAL INFARCTION (6) Concussion with brief LOC Code(s): S06.0X9A - CONCUSSION W LOSS OF CONSCIOUSNESS OF UNSP DURATION, INIT (7) Coronary artery disease Code(s): I25.10 - ATHSCL HEART DISEASE OF [place] CORONARY ARTERY W/O ANG PCTRS (8) GERD (gastroesophageal reflux disease) Code(s): K21.9 - GASTRO-ESOPHAGEAL REFLUX DISEASE WITHOUT ESOPHAGITIS (9) History of hydrocelectomy Code(s): Z98.890 - OTHER SPECIFIED POSTPROCEDURAL STATES (10) Hyperlipidemia Code(s): E78.5 - HYPERLIPIDEMIA, UNSPECIFIED (11) Hypertension Code(s): I10 - ESSENTIAL (PRIMARY) HYPERTENSION (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 Code(s): I25.2 - OLD MYOCARDIAL INFARCTION (13) Syncope and collapse Code(s): R55 - SYNCOPE AND COLLAPSE (14) Constipation Code(s): K59.00 - CONSTIPATION, UNSPECIFIED Assessment/Plan Assessment/plan: acute urinary retention, bilateral ureterohydronephrosis, 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
[2020-05-04 08:10] LABS: BASO % 0.7 % (0-2.0); EOS % 2.4 % (0-4.5); HEMATOCRIT 25.7 % (35.4-49); HEMOGLOBIN 8.7 GM/dL (11.7-16.9); LYMPH % 17.8 % (8-40); MCH 30.5 pg (25.7-33.7); MEAN CELL VOLUME 89.7 fl (80-96); MEAN PLT VOLUME 7.7 fl (7.5-11.1); MONO % 11.2 % (3.8-10.2); NEUT % 67.9 % (42.8-82.8); PLATELET COUNT 295 K/MM3 (134-434); RBC 2.87 M/mm3 (4.00-5.60); WHITE BLOOD COUNT 12.5 K/mm3 (4.0-10.0)
[2020-05-04] MEDS ORDERED: DEXTROSE 5%-WATER - 50 ML IVPB ONE (08:14)
[2020-05-04] MEDS ORDERED: cefTRIAXone SODIUM 1 GM VIAL ONE (08:14)
[2020-05-04 08:29] LABS: BLOOD UREA NITROGEN 20.3 mg/dL (7-18); CALCIUM 8.5 mg/dL (8.5-10.1); CREATININE 1.3 mg/dL (0.55-1.3); POTASSIUM 4.3 mmol/L (3.5-5.1)
[2020-05-04] MEDS: ASPIRIN COATED 81 MG TABLET.EC PO SCH (08:59)
[2020-05-04] MEDS: PANTOPRAZOLE 40 MG TABLET PO SCH (08:59)
[2020-05-04] MEDS: MULTIVITAMINS THER W-MINERALS COMBO TABLET (FP) PO SCH (08:59)
[2020-05-04] MEDS: CEFTRIAXONE 1 GM in DEXTROSE 5%-WATER - 50 ML IVPB SCH (08:59)
[2020-05-04] MEDS: RANOLAZINE E.R. 500 MG TABLET (FP) PO SCH ×2 (08:59→20:59)
[2020-05-04] MEDS: amLODIPine BESYLATE 10 MG TABLET (FP) PO SCH (09:00)
[2020-05-04] MEDS: ENOXAPARIN NA (PORCINE) 80 MG/0.8 ML DISP.SYRIN SQ SCH ×2 (09:01→20:45)
--- NOTE | 2020-05-04 10:55 | PN ---
Progress Note (short form) - Note Progress Note: constipation feels well CBI d/kathie no blood in louie Vital Signs Period Temp Pulse Resp BP Sys/Reese Pulse Ox Last 24 Hr 97.5 F-98.7 F 68-76 18-20 107-129/43-59 94-100 cor-rrr lungs decreased bs at bases abd soft,nt ext no edema +louie CBC, BMP 05/04/20 06:40 05/04/20 06:40 cxray LL atelectasis vs earlyinfiltrate Microbiology 04/25/20 07:29 Urine - Urine Clean Catch Urine Culture - Final NO GROWTH OBTAINED a/p postop leukocytosis s/p TURP pod #2 continue rocephin, f/u cultures enncourage oob, and incentive spirometry constipation- Problem List - Problems (1) Leukocytosis Code(s): D72.829 - ELEVATED WHITE BLOOD CELL COUNT, UNSPECIFIED (2) BPH (benign prostatic hyperplasia) Code(s): N40.0 - BENIGN PROSTATIC HYPERPLASIA WITHOUT LOWER URINRY TRACT SYMP
[2020-05-04] MEDS: DOCUSATE SODIUM 100 MG CAPSULE (FP) PO SCH ×2 (13:07→20:59)
--- NOTE | 2020-05-04 14:37 | PN ---
Progress Note, Physician History of Present Illness: Pt seen and examined at bedside. He is awake and alert. he denies shortness of breath. - Current Medication List Current Medications: Active Medications Acetaminophen (Tylenol -) 650 mg PO Q6H PRN PRN Reason: PAIN LEVEL 6-10 Last Admin: 05/04/20 05:13 Dose: 650 mg Documented by: Amlodipine Besylate (Norvasc -) 10 mg PO DAILY [facility] Aspirin (Ecotrin -) 81 mg PO DAILY [facility] Last Admin: 05/04/20 08:59 Dose: 81 mg Documented by: Atorvastatin Calcium (Lipitor -) 80 mg PO HS [facility] Last Admin: 05/03/20 21:09 Dose: 80 mg Documented by: Docusate Sodium (Colace -) 100 mg PO TID [facility] Last Admin: 05/04/20 13:07 Dose: 100 mg Documented by: Enoxaparin Sodium (Lovenox -) 70 mg SQ Q12H [facility] Last Admin: 05/04/20 09:01 Dose: 70 mg Documented by: Gabapentin (Neurontin -) 100 mg PO TID [facility] Last Admin: 05/04/20 13:07 Dose: 100 mg Documented by: Ceftriaxone Sodium 1 gm/ (Dextrose) 50 mls @ 100 mls/hr IVPB DAILY [facility]; Protocol Last Admin: 05/04/20 08:59 Dose: 100 mls/hr Documented by: Multivitamins/Minerals (Theragran-M) 1 each PO DAILY [facility] Last Admin: 05/04/20 08:59 Dose: 1 each Documented by: Nitroglycerin (Nitrostat -) 0.4 mg SL Q5M PRN PRN Reason: FOR CHEST PAIN Ondansetron HCl (Zofran Injection) 4 mg IVPUSH Q6H PRN PRN Reason: NAUSEA AND/OR VOMITING Pantoprazole Sodium (Protonix -) 40 mg PO DAILY [facility] Last Admin: 05/04/20 08:59 Dose: 40 mg Documented by: Ranolazine (Ranexa -) 500 mg PO BID [facility] Last Admin: 05/04/20 08:59 Dose: 500 mg Documented by: Senna (Senna -) 3 tab PO HS PRN PRN Reason: CONSTIPATION Last Admin: 05/03/20 21:07 Dose: 3 tab Documented by: - Objective Vital Signs: Vital Signs Temperature 98.4 F 05/04/20 09:00 Pulse Rate 68 05/04/20 09:00 Respiratory Rate 18 05/04/20 09:00 Blood Pressure 109/46 L 05/04/20 09:00 O2 Sat by Pulse Oximetry (%) 100 05/04/20 09:00 Constitutional: Yes: Calm Eyes: Yes: Conjunctiva Clear HENT: Yes: Atraumatic Neck: Yes: Supple Cardiovascular: Yes: S1, S2 Respiratory: Yes: CTA Bilaterally Gastrointestinal: Yes: Soft Genitourinary: Yes: Reed Present. No: Hematuria Edema: No Neurological: Yes: Oriented Psychiatric: Yes: Oriented Labs: CBC, BMP 05/04/20 06:40 05/04/20 06:40 INR, PTT INR 1.07 (0.83-1.09) 04/25/20 04:00 Problem List - Problems (1) Acute kidney injury superimposed on CKD Code(s): N17.9 - ACUTE KIDNEY FAILURE, UNSPECIFIED; N18.9 - CHRONIC KIDNEY DISEASE, UNSPECIFIED (2) Hyperkalemia Code(s): E87.5 - HYPERKALEMIA (3) Urinary retention Code(s): R33.9 - RETENTION OF URINE, UNSPECIFIED (4) BPH (benign prostatic hyperplasia) Code(s): N40.0 - BENIGN PROSTATIC HYPERPLASIA WITHOUT LOWER URINRY TRACT SYMP (5) Coronary artery disease Code(s): I25.10 - ATHSCL HEART DISEASE OF [place] CORONARY ARTERY W/O ANG PCTRS (6) History of hydrocelectomy Code(s): Z98.890 - OTHER SPECIFIED POSTPROCEDURAL STATES (7) Hyperlipidemia Code(s): E78.5 - HYPERLIPIDEMIA, UNSPECIFIED (8) Hypertension Code(s): I10 - ESSENTIAL (PRIMARY) HYPERTENSION (9) Syncope and collapse Code(s): R55 - SYNCOPE AND COLLAPSE Assessment/Plan Current Medications Generic Name Dose Route Start Last Admin Trade Name Freq PRN Reason Stop Dose Admin Acetaminophen 650 mg 05/03/20 09:07 05/04/20 05:13 Tylenol - PO 650 mg Q6H PRN Administration PAIN LEVEL 6-10 Amlodipine Besylate 10 mg 05/04/20 10:34 Norvasc - PO DAILY [facility] Aspirin 81 mg 05/03/20 10:00 05/04/20 08:59 Ecotrin - PO 81 mg DAILY [facility] Administration Atorvastatin Calcium 80 mg 05/02/20 22:00 05/03/20 21:09 Lipitor - PO 80 mg HS [facility] Administration Docusate Sodium 100 mg 05/04/20 14:00 05/04/20 13:07 Colace - PO 100 mg TID [facility] Administration Enoxaparin Sodium 70 mg 05/03/20 09:15 05/04/20 09:01 Lovenox - SQ 70 mg Q12H [facility] Administration Gabapentin 100 mg 05/02/20 22:00 05/04/20 13:07 Neurontin - PO 100 mg TID [facility] Administration Ceftriaxone Sodium 1 gm/ 50 mls @ 100 mls/hr 05/03/20 12:30 05/04/20 08:59 Dextrose IVPB 100 mls/hr DAILY [facility] Administration Protocol Multivitamins/Minerals 1 each 05/03/20 10:00 05/04/20 08:59 Theragran-M PO 1 each DAILY [facility] Administration Nitroglycerin 0.4 mg 05/02/20 14:28 Nitrostat - SL Q5M PRN FOR CHEST PAIN Ondansetron HCl 4 mg 05/02/20 13:58 Zofran Injection IVPUSH Q6H PRN NAUSEA AND/OR VOMITING Pantoprazole Sodium 40 mg 05/03/20 10:00 05/04/20 08:59 Protonix - PO 40 mg DAILY [facility] Administration Ranolazine 500 mg 05/02/20 22:00 05/04/20 08:59 Ranexa - PO 500 mg BID [facility] Administration Senna 3 tab 05/02/20 14:28 05/03/20 21:07 Senna - PO 3 tab HS PRN Administration CONSTIPATION Microbiology 04/25/20 07:29 Urine - Urine Clean Catch Urine Culture - Final NO GROWTH OBTAINED 05/03/20 11:50 Blood - Peripheral Venous Blood Culture - Preliminary NO GROWTH OBTAINED AFTER 24 HOURS, INCUBATION TO CONTINUE FOR 4 DAYS. 05/03/20 11:45 Blood - Peripheral Venous Blood Culture - Preliminary NO GROWTH OBTAINED AFTER 24 HOURS, INCUBATION TO CONTINUE FOR 4 DAYS. Impression 1. POOJA 2. CKD 3. hyperkalemia 4. hld 5. hydronephrosis 6. urinary retention 7. cva 8. htn 9. cad s/p [place] 10. PAD 11. gerd 12. leukocytosis Plan - cultures neg so far - repeat labs in am - renal function stable - urine is clear - urology follow up - pt tolerating diet - avoid nsaids
[2020-05-04] MEDS: SENNOSIDES 8.6MG TABLET (FP) PO PRN (20:59)
[2020-05-04] MEDS: ATORVASTATIN CA 80 MG TABLET (FP) PO SCH (20:59)
[2020-05-05] MEDS: DOCUSATE SODIUM 100 MG CAPSULE (FP) PO SCH ×3 (05:50→21:52)
[2020-05-05] MEDS: GABAPENTIN 100 MG CAPSULE PO SCH ×3 (05:50→21:52)
[2020-05-05 07:08] LABS: BASO % 0.7 % (0-2.0); EOS % 4.1 % (0-4.5); HEMATOCRIT 25.4 % (35.4-49); LYMPH % 25.3 % (8-40); MCH 31.3 pg (25.7-33.7); MCHC 35.2 g/dl (32.0-35.9); MEAN PLT VOLUME 7.8 fl (7.5-11.1); NEUT % 59.9 % (42.8-82.8); PLATELET COUNT 308 K/MM3 (134-434); RBC 2.86 M/mm3 (4.00-5.60); RDW 14.2 % (11.9-15.9); WHITE BLOOD COUNT 9.6 K/mm3 (4.0-10.0)
[2020-05-05 07:27] LABS: BLOOD UREA NITROGEN 20.8 mg/dL (7-18); CALCIUM 8.4 mg/dL (8.5-10.1); CREATININE 1.3 mg/dL (0.55-1.3); POTASSIUM 4.7 mmol/L (3.5-5.1)
--- NOTE | 2020-05-05 08:24 | PN ---
Progress Note, Physician Chief Complaint: Patient seen and examined at the bedside, no acute events from last night, afebrile, diminution of pain in both feet. History of Present Illness: This 89 yr old w/m with PMH of [place] X3, HTN, HLD, PAD, BPH, GERD, s/p CVA, pericarditis admitted via ER with an acute urinary retention, bilateral ureterohydronephrosis, hyperkalemia, acute DVT of lower extremities, and post renal azotemia. - Current Medication List Current Medications: Active Medications Acetaminophen (Tylenol -) 650 mg PO Q6H PRN PRN Reason: PAIN LEVEL 6-10 Last Admin: 05/04/20 05:13 Dose: 650 mg Documented by: Amlodipine Besylate (Norvasc -) 10 mg PO DAILY [facility] Aspirin (Ecotrin -) 81 mg PO DAILY [facility] Last Admin: 05/04/20 08:59 Dose: 81 mg Documented by: Atorvastatin Calcium (Lipitor -) 80 mg PO HS [facility] Last Admin: 05/04/20 20:59 Dose: 80 mg Documented by: Docusate Sodium (Colace -) 100 mg PO TID [facility] Last Admin: 05/05/20 05:50 Dose: 100 mg Documented by: Enoxaparin Sodium (Lovenox -) 70 mg SQ Q12H [facility] Last Admin: 05/04/20 20:45 Dose: 70 mg Documented by: Gabapentin (Neurontin -) 100 mg PO TID [facility] Last Admin: 05/05/20 05:50 Dose: 100 mg Documented by: Ceftriaxone Sodium 1 gm/ (Dextrose) 50 mls @ 100 mls/hr IVPB DAILY [facility]; Prot ocol Last Admin: 05/04/20 08:59 Dose: 100 mls/hr Documented by: Multivitamins/Minerals (Theragran-M) 1 each PO DAILY [facility] Last Admin: 05/04/20 08:59 Dose: 1 each Documented by: Nitroglycerin (Nitrostat -) 0.4 mg SL Q5M PRN PRN Reason: FOR CHEST PAIN Ondansetron HCl (Zofran Injection) 4 mg IVPUSH Q6H PRN PRN Reason: NAUSEA AND/OR VOMITING Pantoprazole Sodium (Protonix -) 40 mg PO DAILY [facility] Last Admin: 05/04/20 08:59 Dose: 40 mg Documented by: Ranolazine (Ranexa -) 500 mg PO BID [facility] Last Admin: 05/04/20 20:59 Dose: 500 mg Documented by: Marysol (Senna -) 3 tab PO HS PRN PRN Reason: CONSTIPATION Last Admin: 05/04/20 20:59 Dose: 3 tab Documented by: - Objective Vital Signs: Vital Signs Temperature 97.5 F L 05/05/20 06:00 Pulse Rate 71 05/05/20 06:00 Respiratory Rate 18 05/05/20 06:00 Blood Pressure 129/60 05/05/20 06:00 O2 Sat by Pulse Oximetry (%) 86 L 05/05/20 06:00 Constitutional: Yes: Well Nourished, No Distress, Calm Eyes: Yes: Conjunctiva Clear, EOM Intact HENT: Yes: Atraumatic, Normocephalic Neck: Yes: Supple, Trachea Midline Cardiovascular: Yes: Regular Rate and Rhythm Respiratory: Yes: Regular, CTA Bilaterally Gastrointestinal: Yes: Normal Bowel Sounds, Soft ...Rectal Exam: Yes: Deferred Genitourinary: Yes: Incontinence (neurogenic bladder) Breast(s): Yes: WNL Musculoskeletal: Yes: Muscle Weakness Extremities: Yes: WNL Edema: No Peripheral Pulses WNL: Yes Integumentary: Yes: WNL Neurological: Yes: Alert, Oriented, Unsteady Gait, Weakness ...Motor Strength: LLE (muscle weakness), RLE (muscle weakness) Psychiatric: Yes: Alert, Oriented Labs: CBC, BMP 05/05/20 05:35 05/05/20 05:35 INR, PTT INR 1.07 (0.83-1.09) 04/25/20 04:00 - ....Imaging Other: Report Reviewed (lab data reviewed) Problem List - Problems (1) Hyperkalemia Code(s): E87.5 - HYPERKALEMIA (2) Acute kidney injury superimposed on CKD Code(s): N17.9 - ACUTE KIDNEY FAILURE, UNSPECIFIED; N18.9 - CHRONIC KIDNEY DISEASE, UNSPECIFIED (3) Urinary retention Code(s): R33.9 - RETENTION OF URINE, UNSPECIFIED (4) BPH (benign prostatic hyperplasia) Code(s): N40.0 - BENIGN PROSTATIC HYPERPLASIA WITHOUT LOWER URINRY TRACT SYMP (5) Chronic arterial ischemic stroke Code(s): I69.30 - UNSPECIFIED SEQUELAE OF CEREBRAL INFARCTION (6) Concussion with brief LOC Code(s): S06.0X9A - CONCUSSION W LOSS OF CONSCIOUSNESS OF UNSP DURATION, INIT (7) Coronary artery disease Code(s): I25.10 - ATHSCL HEART DISEASE OF [place] CORONARY ARTERY W/O ANG PCTRS (8) GERD (gastroesophageal reflux disease) Code(s): K21.9 - GASTRO-ESOPHAGEAL REFLUX DISEASE WITHOUT ESOPHAGITIS (9) History of hydrocelectomy Code(s): Z98.890 - OTHER SPECIFIED POSTPROCEDURAL STATES (10) Hyperlipidemia Code(s): E78.5 - HYPERLIPIDEMIA, UNSPECIFIED (11) Hypertension Code(s): I10 - ESSENTIAL (PRIMARY) HYPERTENSION (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 Code(s): I25.2 - OLD MYOCARDIAL INFARCTION (13) Syncope and collapse Code(s): R55 - SYNCOPE AND COLLAPSE (14) Constipation Code(s): K59.00 - CONSTIPATION, UNSPECIFIED Assessment/Plan Assessment/plan: acute urinary retention, hyperkalemia, bilateral uret erohydronephrosis, s/p cystoerethroscopy, s/p TURP/TUVP, post renal azotemia, DVT of lower extremities, 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
[2020-05-05] MEDS ORDERED: cefTRIAXone SODIUM 1 GM VIAL ONE (09:31)
[2020-05-05] MEDS ORDERED: DEXTROSE 5%-WATER - 50 ML IVPB ONE (09:31)
[2020-05-05] MEDS: ENOXAPARIN NA (PORCINE) 80 MG/0.8 ML DISP.SYRIN SQ SCH ×2 (09:57→21:52)
[2020-05-05] MEDS: CEFTRIAXONE 1 GM in DEXTROSE 5%-WATER - 50 ML IVPB SCH (09:57)
[2020-05-05] MEDS: PANTOPRAZOLE 40 MG TABLET PO SCH (09:58)
[2020-05-05] MEDS: RANOLAZINE E.R. 500 MG TABLET (FP) PO SCH ×2 (09:58→21:53)
[2020-05-05] MEDS: amLODIPine BESYLATE 10 MG TABLET (FP) PO SCH (09:58)
[2020-05-05] MEDS: ASPIRIN COATED 81 MG TABLET.EC PO SCH (09:58)
[2020-05-05] MEDS: MULTIVITAMINS THER W-MINERALS COMBO TABLET (FP) PO SCH (09:58)
--- NOTE | 2020-05-05 10:28 | PN ---
Progress Note (short form) - Note Progress Note: constipation resolved louie removed this am has not voided no fevers using the incentive spirometry Vital Signs Period Temp Pulse Resp BP Sys/Reese Pulse Ox Last 24 Hr 97.5 F-98.7 F 69-84 18-20 97-147/46-67 86-98 cor-rrr llungs decreased bs at bases abd soft,nt no suprapubic discomfort ext no edema CBC, BMP 05/05/20 05:35 05/05/20 05:35 Microbiology 05/03/20 11:50 Blood - Peripheral Venous Blood Culture - Preliminary NO GROWTH OBTAINED AFTER 24 HOURS, INCUBATION TO CONTINUE FOR 4 DAYS. 05/03/20 11:45 Blood - Peripheral Venous Blood Culture - Preliminary NO GROWTH OBTAINED AFTER 24 HOURS, INCUBATION TO CONTINUE FOR 4 DAYS. 04/25/20 07:29 Urine - Urine Clean Catch Urine Culture - Final NO GROWTH OBTAINED a/p postop leukocytosis-resolved s/p TURP pod #3 d/c rocephin cultures negative enncourage oob, and incentive spirometry constipation- resolved Problem List - Problems (1) Leukocytosis Code(s): D72.829 - ELEVATED WHITE BLOOD CELL COUNT, UNSPECIFIED (2) BPH (benign prostatic hyperplasia) Code(s): N40.0 - BENIGN PROSTATIC HYPERPLASIA WITHOUT LOWER URINRY TRACT SYMP
--- NOTE | 2020-05-05 10:32 | PN ---
Problem List - Problems (1) Leukocytosis Code(s): D72.829 - ELEVATED WHITE BLOOD CELL COUNT, UNSPECIFIED (2) BPH (benign prostatic hyperplasia) Code(s): N40.0 - BENIGN PROSTATIC HYPERPLASIA WITHOUT LOWER URINRY TRACT SYMP
--- NOTE | 2020-05-05 13:06 | PN ---
Progress Note, Physician History of Present Illness: Pt seen and examined at bedside. He is awake and alert. he is laying in bed. Louie was removed this morning. - Current Medication List Current Medications: Active Medications Acetaminophen (Tylenol -) 650 mg PO Q6H PRN PRN Reason: PAIN LEVEL 6-10 Last Admin: 05/04/20 05:13 Dose: 650 mg Documented by: Amlodipine Besylate (Norvasc -) 10 mg PO DAILY [facility] Last Admin: 05/05/20 09:58 Dose: 10 mg Documented by: Aspirin (Ecotrin -) 81 mg PO DAILY [facility] Last Admin: 05/05/20 09:58 Dose: 81 mg Documented by: Atorvastatin Calcium (Lipitor -) 80 mg PO HS [facility] Last Admin: 05/04/20 20:59 Dose: 80 mg Documented by: Docusate Sodium (Colace -) 100 mg PO TID [facility] Last Admin: 05/05/20 13:00 Dose: 100 mg Documented by: Enoxaparin Sodium (Lovenox -) 70 mg SQ Q12H [facility] Last Admin: 05/05/20 09:57 Dose: 70 mg Documented by: Gabapentin (Neurontin -) 100 mg PO TID [facility] Last Admin: 05/05/20 13:00 Dose: 100 mg Documented by: Multivitamins/Minerals (Theragran-M) 1 each PO DAILY [facility] Last Admin: 05/05/20 09:58 Dose: 1 each Documented by: Nitroglycerin (Nitrostat -) 0.4 mg SL Q5M PRN PRN Reason: FOR CHEST PAIN Ondansetron HCl (Zofran Injection) 4 mg IVPUSH Q6H PRN PRN Reason: NAUSEA AND/OR VOMITING Pantoprazole Sodium (Protonix -) 40 mg PO DAILY [facility] Last Admin: 05/05/20 09:58 Dose: 40 mg Documented by: Ranolazine (Ranexa -) 500 mg PO BID [facility] Last Admin: 05/05/20 09:58 Dose: 500 mg Documented by: Senna (Senna -) 3 tab PO HS PRN PRN Reason: CONSTIPATION Last Admin: 05/04/20 20:59 Dose: 3 tab Documented by: - Objective Vital Signs: Vital Signs Temperature 97.5 F L 05/05/20 06:00 Pulse Rate 71 05/05/20 06:00 Respiratory Rate 18 05/05/20 09:00 Blood Pressure 129/60 05/05/20 06:00 O2 Sat by Pulse Oximetry (%) 99 05/05/20 09:00 Constitutional: Yes: Calm Eyes: Yes: Conjunctiva Clear HENT: Yes: Atraumatic Neck: Yes: Supple Cardiovascular: Yes: S1, S2 Respiratory: Yes: CTA Bilaterally Gastrointestinal: Yes: Normal Bowel Sounds, Soft Genitourinary: Yes: Other (louie removed) Musculoskeletal: Yes: WNL Edema: No Integumentary: Yes: WNL Neurological: Yes: Oriented Psychiatric: Yes: Oriented Labs: CBC, BMP 05/05/20 05:35 05/05/20 05:35 INR, PTT INR 1.07 (0.83-1.09) 04/25/20 04:00 Problem List - Problems (1) Acute kidney injury superimposed on CKD Code(s): N17.9 - ACUTE KIDNEY FAILURE, UNSPECIFIED; N18.9 - CHRONIC KIDNEY DISEASE, UNSPECIFIED (2) Hyperkalemia Code(s): E87.5 - HYPERKALEMIA (3) Urinary retention Code(s): R33.9 - RETENTION OF URINE, UNSPECIFIED (4) BPH (benign prostatic hyperplasia) Code(s): N40.0 - BENIGN PROSTATIC HYPERPLASIA WITHOUT LOWER URINRY TRACT SYMP (5) Coronary artery disease Code(s): I25.10 - ATHSCL HEART DISEASE OF [place] CORONARY ARTERY W/O ANG PCTRS (6) History of hydrocelectomy Code(s): Z98.890 - OTHER SPECIFIED POSTPROCEDURAL STATES (7) Hyperlipidemia Code(s): E78.5 - HYPERLIPIDEMIA, UNSPECIFIED (8) Hypertension Code(s): I10 - ESSENTIAL (PRIMARY) HYPERTENSION (9) Syncope and collapse Code(s): R55 - SYNCOPE AND COLLAPSE Assessment/Plan Current Medications Generic Name Dose Route Start Last Admin Trade Name Freq PRN Reason Stop Dose Admin Acetaminophen 650 mg 05/03/20 09:07 05/04/20 05:13 Tylenol - PO 650 mg Q6H PRN Administration PAIN LEVEL 6-10 Amlodipine Besylate 10 mg 05/04/20 10:34 05/05/20 09:58 Norvasc - PO 10 mg DAILY [facility] Administration Aspirin 81 mg 05/03/20 10:00 05/05/20 09:58 Ecotrin - PO 81 mg DAILY [facility] Administration Atorvastatin Calcium 80 mg 05/02/20 22:00 05/04/20 20:59 Lipitor - PO 80 mg HS [facility] Administration Docusate Sodium 100 mg 05/04/20 14:00 05/05/20 13:00 Colace - PO 100 mg TID [facility] Administration Enoxaparin Sodium 70 mg 05/03/20 09:15 05/05/20 09:57 Lovenox - SQ 70 mg Q12H [facility] Administration Gabapentin 100 mg 05/02/20 22:00 05/05/20 13:00 Neurontin - PO 100 mg TID [facility] Administration Multivitamins/Minerals 1 each 05/03/20 10:00 05/05/20 09:58 Theragran-M PO 1 each DAILY [facility] Administration Nitroglycerin 0.4 mg 05/02/20 14:28 Nitrostat - SL Q5M PRN FOR CHEST PAIN Ondansetron HCl 4 mg 05/02/20 13:58 Zofran Injection IVPUSH Q6H PRN NAUSEA AND/OR VOMITING Pantoprazole Sodium 40 mg 05/03/20 10:00 05/05/20 09:58 Protonix - PO 40 mg DAILY [facility] Administration Ranolazine 500 mg 05/02/20 22:00 05/05/20 09:58 Ranexa - PO 500 mg BID [facility] Administration Senna 3 tab 05/02/20 14:28 05/04/20 20:59 Senna - PO 3 tab HS PRN Administration CONSTIPATION Impression 1. POOJA 2. CKD 3. hyperkalemia 4. hld 5. hydronephrosis 6. urinary retention 7. cva 8. htn 9. cad s/p AL 10. PAD 11. gerd 12. leukocytosis Plan - pt on voiding trial - place pt in chair to help with voiding - wbc improved - cont voiding trial - urology follow up - pt tolerating diet - avoid nsaids - ID input appreciated
[2020-05-05] MEDS: ATORVASTATIN CA 80 MG TABLET (FP) PO SCH (21:52)
[2020-05-06] MEDS: GABAPENTIN 100 MG CAPSULE PO SCH ×3 (05:25→21:30)
[2020-05-06] MEDS: DOCUSATE SODIUM 100 MG CAPSULE (FP) PO SCH ×3 (05:25→21:29)
[2020-05-06 07:10] LABS: BASO % 0.9 % (0-2.0); EOS % 4.2 % (0-4.5); HEMATOCRIT 26.6 % (35.4-49); HEMOGLOBIN 9.4 GM/dL (11.7-16.9); LYMPH % 25.3 % (8-40); MCH 31.3 pg (25.7-33.7); MCHC 35.3 g/dl (32.0-35.9); MEAN CELL VOLUME 88.7 fl (80-96); MEAN PLT VOLUME 7.5 fl (7.5-11.1); MONO % 9.8 % (3.8-10.2); NEUT % 59.8 % (42.8-82.8); PLATELET COUNT 332 K/MM3 (134-434); RBC 2.99 M/mm3 (4.00-5.60); RDW 14.1 % (11.9-15.9); WHITE BLOOD COUNT 8.1 K/mm3 (4.0-10.0)
[2020-05-06 07:30] LABS: CALCIUM 8.6 mg/dL (8.5-10.1); CREATININE 1.2 mg/dL (0.55-1.3); POTASSIUM 4.1 mmol/L (3.5-5.1)
--- NOTE | 2020-05-06 08:27 | PN ---
Progress Note, Physician Chief Complaint: Patient seen and examined at the bedside, no acute events from last night, mild neuropathic pain of both feet, and constipation. History of Present Illness: This 89 yr old w/m with PMH of HTN, HLD, [place] X3, BPH, GERD, s/p CVA, PAD admitted via ER with an acute urinary retention, POOJA secondary to obstructive disease, hyperkalemia, DVT of lower extremities, bilateral ureterohydronephrosis, post renal azotemia. - Current Medication List Current Medications: Active Medications Acetaminophen (Tylenol -) 650 mg PO Q6H PRN PRN Reason: PAIN LEVEL 6-10 Last Admin: 05/04/20 05:13 Dose: 650 mg Documented by: Amlodipine Besylate (Norvasc -) 10 mg PO DAILY [facility] Last Admin: 05/05/20 09:58 Dose: 10 mg Documented by: Aspirin (Ecotrin -) 81 mg PO DAILY [facility] Last Admin: 05/05/20 09:58 Dose: 81 mg Documented by: Atorvastatin Calcium (Lipitor -) 80 mg PO HS [facility] Last Admin: 05/05/20 21:52 Dose: 80 mg Documented by: Docusate Sodium (Colace -) 100 mg PO TID [facility] Last Admin: 05/06/20 05:25 Dose: 100 mg Documented by: Enoxaparin Sodium (Lovenox -) 70 mg SQ Q12H [facility] Last Admin: 05/05/20 21:52 Dose: 70 mg Documented by: Gabapentin (Neurontin -) 100 mg PO TID [facility] Last Admin: 05/06/20 05:25 Dose: 100 mg Documented by: Multivitamins/Minerals (Theragran-M) 1 each PO DAILY [facility] Last Admin: 05/05/20 09:58 Dose: 1 each Documented by: Nitroglycerin (Nitrostat -) 0.4 mg SL Q5M PRN PRN Reason: FOR CHEST PAIN Ondansetron HCl (Zofran Injection) 4 mg IVPUSH Q6H PRN PRN Reason: NAUSEA AND/OR VOMITING Pantoprazole Sodium (Protonix -) 40 mg PO DAILY [facility] Last Admin: 05/05/20 09:58 Dose: 40 mg Documented by: Ranolazine (Ranexa -) 500 mg PO BID [facility] Last Admin: 05/05/20 21:53 Dose: 500 mg Documented by: Senna (Senna -) 3 tab PO HS PRN PRN Reason: CONSTIPATION Last Admin: 05/04/20 20:59 Dose: 3 tab Documented by: - Objective Vital Signs: Vital Signs Temperature 98.4 F 05/06/20 06:16 Pulse Rate 72 05/06/20 06:16 Respiratory Rate 18 05/06/20 06:16 Blood Pressure 127/64 05/06/20 06:16 O2 Sat by Pulse Oximetry (%) 97 05/06/20 06:16 Constitutional: Yes: Well Nourished, Calm, Mild Distress (neuropathic pain of feet) Eyes: Yes: Conjunctiva Clear, EOM Intact HENT: Yes: Atraumatic, Normocephalic Neck: Yes: Supple, Trachea Midline Cardiovascular: Yes: Regular Rate and Rhythm Respiratory: Yes: Regular, CTA Bilaterally Gastrointestinal: Yes: Normal Bowel Sounds, Soft ...Rectal Exam: Yes: Deferred Genitourinary: Yes: Reed Present, Incontinence Breast(s): Yes: WNL Musculoskeletal: Yes: Muscle Weakness Extremities: Yes: WNL Edema: No Peripheral Pulses WNL: Yes Integumentary: Yes: WNL Neurological: Yes: Alert, Oriented, Unsteady Gait, Weakness ...Motor Strength: LLE (muscle weakness), RLE (muscle weakness) Psychiatric: Yes: Alert, Oriented Labs: CBC, BMP 05/06/20 06:20 05/06/20 06:20 INR, PTT INR 1.07 (0.83-1.09) 04/25/20 04:00 - ....Imaging Other: Report Reviewed (lab data reviewed) Problem List - Problems (1) Hyperkalemia Code(s): E87.5 - HYPERKALEMIA (2) Acute kidney injury superimposed on CKD Code(s): N17.9 - ACUTE KIDNEY FAILURE, UNSPECIFIED; N18.9 - CHRONIC KIDNEY DISEASE, UNSPECIFIED (3) Urinary retention Code(s): R33.9 - RETENTION OF URINE, UNSPECIFIED (4) BPH (benign prostatic hyperplasia) Code(s): N40.0 - BENIGN PROSTATIC HYPERPLASIA WITHOUT LOWER URINRY TRACT SYMP (5) Chronic arterial ischemic stroke Code(s): I69.30 - UNSPECIFIED SEQUELAE OF CEREBRAL INFARCTION (6) Concussion with brief LOC Code(s): S06.0X9A - CONCUSSION W LOSS OF CONSCIOUSNESS OF UNSP DURATION, INIT (7) Coronary artery disease Code(s): I25.10 - ATHSCL HEART DISEASE OF [place] CORONARY ARTERY W/O ANG PCTRS (8) GERD (gastroesophageal reflux disease) Code(s): K21.9 - GASTRO-ESOPHAGEAL REFLUX DISEASE WITHOUT ESOPHAGITIS (9) History of hydrocelectomy Code(s): Z98.890 - OTHER SPECIFIED POSTPROCEDURAL STATES (10) Hyperlipidemia Code(s): E78.5 - HYPERLIPIDEMIA, UNSPECIFIED (11) Hypertension Code(s): I10 - ESSENTIAL (PRIMARY) HYPERTENSION (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 Code(s): I25.2 - OLD MYOCARDIAL INFARCTION (13) Syncope and collapse Code(s): R55 - SYNCOPE AND COLLAPSE (14) Constipation Code(s): K59.00 - CONSTIPATION, UNSPECIFIED Assessment/Plan Assessment/plan: acute urinary retention, bilateral ureterohydronephrosis, post renal azotemia, acute DVT of lower extremities, leukocytosis resolved, hyperkalemia, neuropathic pain of feet, HTN, HLD, PAD, [place] X3, GERD, s/p CVA; d- dimer 2470; SQ Lovenox and aspirin for DVT; amlodipine for HTN, atorvastatin for HLD; NTG and Ranexa for CAD; oral pantoprazole for GI prophylaxis; gabapentin for neuropathic pain of feet; senna docusate and miralax for constipation; physical therapy for deconditioning.
[2020-05-06] MEDS: RANOLAZINE E.R. 500 MG TABLET (FP) PO SCH ×2 (09:40→21:29)
[2020-05-06] MEDS: ENOXAPARIN NA (PORCINE) 80 MG/0.8 ML DISP.SYRIN SQ SCH ×2 (09:40→21:30)
[2020-05-06] MEDS: MULTIVITAMINS THER W-MINERALS COMBO TABLET (FP) PO SCH (09:40)
[2020-05-06] MEDS: PANTOPRAZOLE 40 MG TABLET PO SCH (09:40)
[2020-05-06] MEDS: amLODIPine BESYLATE 10 MG TABLET (FP) PO SCH (09:40)
[2020-05-06] MEDS: ASPIRIN COATED 81 MG TABLET.EC PO SCH (09:40)
[2020-05-06] MEDS: POLYETHYLENE GLYCOL 3350 119 GM BTL PO SCH (09:44)
--- NOTE | 2020-05-06 12:24 | PN ---
Progress Note (short form) - Note Progress Note: UROLOGY NOTE. S/P TURP, PT. FAILED FIRST TOV, DANIEL REINSERTED, URINE IS CLEAR, ABD.- SOFT, N/T BS++. PLAN D/C DANIEL IN AM.
[2020-05-06] MEDS ORDERED: TAMSULOSIN HCL 0.4 MG CAP PO ONE (13:15)
--- NOTE | 2020-05-06 13:49 | PN ---
Progress Note, Physician History of Present Illness: Pt seen and examined at bedside. He is awake and alert. he denies shortness of breath. - Current Medication List Current Medications: Active Medications Acetaminophen (Tylenol -) 650 mg PO Q6H PRN PRN Reason: PAIN LEVEL 6-10 Last Admin: 05/04/20 05:13 Dose: 650 mg Documented by: Amlodipine Besylate (Norvasc -) 10 mg PO DAILY [facility] Last Admin: 05/06/20 09:40 Dose: 10 mg Documented by: Aspirin (Ecotrin -) 81 mg PO DAILY [facility] Last Admin: 05/06/20 09:40 Dose: 81 mg Documented by: Atorvastatin Calcium (Lipitor -) 80 mg PO HS [facility] Last Admin: 05/05/20 21:52 Dose: 80 mg Documented by: Docusate Sodium (Colace -) 100 mg PO TID [facility] Last Admin: 05/06/20 13:22 Dose: 100 mg Documented by: Enoxaparin Sodium (Lovenox -) 70 mg SQ Q12H [facility] Last Admin: 05/06/20 09:40 Dose: 70 mg Documented by: Gabapentin (Neurontin -) 100 mg PO TID [facility] Last Admin: 05/06/20 13:22 Dose: 100 mg Documented by: Multivitamins/Minerals (Theragran-M) 1 each PO DAILY [facility] Last Admin: 05/06/20 09:40 Dose: 1 each Documented by: Nitroglycerin (Nitrostat -) 0.4 mg SL Q5M PRN PRN Reason: FOR CHEST PAIN Ondansetron HCl (Zofran Injection) 4 mg IVPUSH Q6H PRN PRN Reason: NAUSEA AND/OR VOMITING Pantoprazole Sodium (Protonix -) 40 mg PO DAILY [facility] Last Admin: 05/06/20 09:40 Dose: 40 mg Documented by: Polyethylene Glycol (Miralax (For Daily Use) -) 17 gm PO DAILY [facility] Last Admin: 05/06/20 09:44 Dose: 17 grams Documented by: Ranolazine (Ranexa -) 500 mg PO BID [facility] Last Admin: 05/06/20 09:40 Dose: 500 mg Documented by: Senna (Senna -) 3 tab PO HS PRN PRN Reason: CONSTIPATION Last Admin: 05/04/20 20:59 Dose: 3 tab Documented by: - Objective Vital Signs: Vital Signs Temperature 98.4 F 05/06/20 06:16 Pulse Rate 72 05/06/20 06:16 Respiratory Rate 18 05/06/20 09:00 Blood Pressure 127/64 05/06/20 06:16 O2 Sat by Pulse Oximetry (%) 97 05/06/20 09:00 Constitutional: Yes: Calm Eyes: Yes: Conjunctiva Clear HENT: Yes: Atraumatic Neck: Yes: Supple Cardiovascular: Yes: S1, S2 Respiratory: Yes: CTA Bilaterally Gastrointestinal: Yes: Normal Bowel Sounds, Soft Genitourinary: Yes: Louie Present Musculoskeletal: Yes: WNL Edema: No Neurological: Yes: Oriented Psychiatric: Yes: Oriented Labs: CBC, BMP 05/06/20 06:20 05/06/20 06:20 INR, PTT INR 1.07 (0.83-1.09) 04/25/20 04:00 Problem List - Problems (1) Acute kidney injury superimposed on CKD Code(s): N17.9 - ACUTE KIDNEY FAILURE, UNSPECIFIED; N18.9 - CHRONIC KIDNEY DISEASE, UNSPECIFIED (2) Hyperkalemia Code(s): E87.5 - HYPERKALEMIA (3) Urinary retention Code(s): R33.9 - RETENTION OF URINE, UNSPECIFIED (4) BPH (benign prostatic hyperplasia) Code(s): N40.0 - BENIGN PROSTATIC HYPERPLASIA WITHOUT LOWER URINRY TRACT SYMP (5) Coronary artery disease Code(s): I25.10 - ATHSCL HEART DISEASE OF [place] CORONARY ARTERY W/O ANG PCTRS (6) History of hydrocelectomy Code(s): Z98.890 - OTHER SPECIFIED POSTPROCEDURAL STATES (7) Hyperlipidemia Code(s): E78.5 - HYPERLIPIDEMIA, UNSPECIFIED (8) Hypertension Code(s): I10 - ESSENTIAL (PRIMARY) HYPERTENSION (9) Syncope and collapse Code(s): R55 - SYNCOPE AND COLLAPSE Assessment/Plan Current Medications Generic Name Dose Route Start Last Admin Trade Name Freq PRN Reason Stop Dose Admin Acetaminophen 650 mg 05/03/20 09:07 05/04/20 05:13 Tylenol - PO 650 mg Q6H PRN Administration PAIN LEVEL 6-10 Amlodipine Besylate 10 mg 05/04/20 10:34 05/06/20 09:40 Norvasc - PO 10 mg DAILY [facility] Administration Aspirin 81 mg 05/03/20 10:00 05/06/20 09:40 Ecotrin - PO 81 mg DAILY [facility] Administration Atorvastatin Calcium 80 mg 05/02/20 22:00 05/05/20 21:52 Lipitor - PO 80 mg HS [facility] Administration Docusate Sodium 100 mg 05/04/20 14:00 05/06/20 13:22 Colace - PO 100 mg TID [facility] Administration Enoxaparin Sodium 70 mg 05/03/20 09:15 05/06/20 09:40 Lovenox - SQ 70 mg Q12H [facility] Administration Gabapentin 100 mg 05/02/20 22:00 05/06/20 13:22 Neurontin - PO 100 mg TID [facility] Administration Multivitamins/Minerals 1 each 05/03/20 10:00 05/06/20 09:40 Theragran-M PO 1 each DAILY [facility] Administration Nitroglycerin 0.4 mg 05/02/20 14:28 Nitrostat - SL Q5M PRN FOR CHEST PAIN Ondansetron HCl 4 mg 05/02/20 13:58 Zofran Injection IVPUSH Q6H PRN NAUSEA AND/OR VOMITING Pantoprazole Sodium 40 mg 05/03/20 10:00 05/06/20 09:40 Protonix - PO 40 mg DAILY [facility] Administration Polyethylene Glycol 17 gm 05/06/20 10:00 05/06/20 09:44 Miralax (For Daily Use) - PO 17 grams DAILY [facility] Administration Ranolazine 500 mg 05/02/20 22:00 05/06/20 09:40 Ranexa - PO 500 mg BID [facility] Administration Senna 3 tab 05/02/20 14:28 05/04/20 20:59 Senna - PO 3 tab HS PRN Administration CONSTIPATION Impression 1. POOJA 2. CKD 3. hyperkalemia 4. hld 5. hydronephrosis 6. urinary retention 7. cva 8. htn 9. cad s/p [place] 10. PAD 11. gerd 12. leukocytosis Plan - louie inserted as he failed voiding trial - urology input appreciated - voiding trial again tomorrow, out of bed to chair in am during trial - pt tolerating diet - avoid nsaids - ID input appreciated
[2020-05-06] MEDS: ATORVASTATIN CA 80 MG TABLET (FP) PO SCH (21:29)
[2020-05-07] MEDS: DOCUSATE SODIUM 100 MG CAPSULE (FP) PO SCH ×2 (06:19→15:08)
[2020-05-07] MEDS: GABAPENTIN 100 MG CAPSULE PO SCH ×2 (06:19→15:08)
[2020-05-07 07:11] LABS: BASO % 0.9 % (0-2.0); EOS % 4.3 % (0-4.5); HEMATOCRIT 26.2 % (35.4-49); HEMOGLOBIN 9.1 GM/dL (11.7-16.9); LYMPH % 31.1 % (8-40); MCH 31.1 pg (25.7-33.7); MCHC 34.6 g/dl (32.0-35.9); MEAN CELL VOLUME 89.9 fl (80-96); MEAN PLT VOLUME 7.6 fl (7.5-11.1); MONO % 9.1 % (3.8-10.2); NEUT % 54.6 % (42.8-82.8); PLATELET COUNT 332 K/MM3 (134-434); RBC 2.91 M/mm3 (4.00-5.60); RDW 13.9 % (11.9-15.9); WHITE BLOOD COUNT 7.7 K/mm3 (4.0-10.0)
[2020-05-07 07:40] LABS: BLOOD UREA NITROGEN 20.9 mg/dL (7-18); CALCIUM 8.4 mg/dL (8.5-10.1); CREATININE 1.2 mg/dL (0.55-1.3); POTASSIUM 4.7 mmol/L (3.5-5.1)
--- NOTE | 2020-05-07 08:19 | PN ---
Progress Note, Physician Chief Complaint: Patient seen and examined at the bedside, no acute events from last night, afebrile, diminution of pain of both feet. History of Present Illness: This 89 yr old w/m with PMH of HTN, HLD, PAD, GERD, s/p CVA, [place] X3, CKD admitted via ER with an acute urinary retention, neurogenic bladder, bilateral ureterohydronephrosis, DVT of lower extremities, hyperkalemia, and post renal a zotemia. - Current Medication List Current Medications: Active Medications Acetaminophen (Tylenol -) 650 mg PO Q6H PRN PRN Reason: PAIN LEVEL 6-10 Last Admin: 05/04/20 05:13 Dose: 650 mg Documented by: Amlodipine Besylate (Norvasc -) 10 mg PO DAILY [facility] Last Admin: 05/06/20 09:40 Dose: 10 mg Documented by: Aspirin (Ecotrin -) 81 mg PO DAILY [facility] Last Admin: 05/06/20 09:40 Dose: 81 mg Documented by: Atorvastatin Calcium (Lipitor -) 80 mg PO HS [facility] Last Admin: 05/06/20 21:29 Dose: 80 mg Documented by: Docusate Sodium (Colace -) 100 mg PO TID [facility] Last Admin: 05/07/20 06:19 Dose: 100 mg Documented by: Enoxaparin Sodium (Lovenox -) 70 mg SQ Q12H [facility] Last Admin: 05/06/20 21:30 Dose: 70 mg Documented by: Gabapentin (Neurontin -) 100 mg PO TID [facility] Last Admin: 05/07/20 06:19 Dose: 100 mg Documented by: Multivitamins/Minerals (Theragran-M) 1 each PO DAILY [facility] Last Admin: 05/06/20 09:40 Dose: 1 each Documented by: Nitroglycerin (Nitrostat -) 0.4 mg SL Q5M PRN PRN Reason: FOR CHEST PAIN Ondansetron HCl (Zofran Injection) 4 mg IVPUSH Q6H PRN PRN Reason: NAUSEA AND/OR VOMITING Pantoprazole Sodium (Protonix -) 40 mg PO DAILY [facility] Last Admin: 05/06/20 09:40 Dose: 40 mg Documented by: Polyethylene Glycol (Miralax (For Daily Use) -) 17 gm PO DAILY [facility] Last Admin: 05/06/20 09:44 Dose: 17 grams Documented by: Ranolazine (Ranexa -) 500 mg PO BID [facility] Last Admin: 05/06/20 21:29 Dose: 500 mg Documented by: Senna (Senna -) 3 tab PO HS PRN PRN Reason: CONSTIPATION Last Admin: 05/04/20 20:59 Dose: 3 tab Documented by: - Objective Vital Signs: Vital Signs Temperature 98.4 F 05/07/20 05:54 Pulse Rate 74 05/07/20 05:54 Respiratory Rate 18 05/07/20 05:54 Blood Pressure 122/53 L 05/07/20 05:54 O2 Sat by Pulse Oximetry (%) 99 05/07/20 05:54 Constitutional: Yes: Well Nourished, No Distress, Calm Eyes: Yes: Conjunctiva Clear, EOM Intact HENT: Yes: Atraumatic, Normocephalic Neck: Yes: Supple, Trachea Midline Respiratory: Yes: Regular, CTA Bilaterally Gastrointestinal: Yes: Normal Bowel Sounds, Soft ...Rectal Exam: Yes: Deferred Genitourinary: Yes: Reed Present, Incontinence (neurogenic bladder) Breast(s): Yes: WNL Musculoskeletal: Yes: Muscle Weakness Extremities: Yes: WNL Edema: No Peripheral Pulses WNL: Yes Integumentary: Yes: WNL Neurological: Yes: Alert, Oriented, Unsteady Gait, Weakness ...Motor Strength: LLE (muscle weakness), RLE (muscle weakness) Psychiatric: Yes: Alert, Oriented Labs: CBC, BMP 05/07/20 06:06 05/07/20 06:06 INR, PTT INR 1.07 (0.83-1.09) 04/25/20 04:00 - ....Imaging Other: Report Reviewed (lab data reviewed) Problem List - Problems (1) Hyperkalemia Code(s): E87.5 - HYPERKALEMIA (2) Acute kidney injury superimposed on CKD Code(s): N17.9 - ACUTE KIDNEY FAILURE, UNSPECIFIED; N18.9 - CHRONIC KIDNEY DISEASE, UNSPECIFIED (3) Urinary retention Code(s): R33.9 - RETENTION OF URINE, UNSPECIFIED (4) BPH (benign prostatic hyperplasia) Code(s): N40.0 - BENIGN PROSTATIC HYPERPLASIA WITHOUT LOWER URINRY TRACT SYMP (5) Chronic arterial ischemic stroke Code(s): I69.30 - UNSPECIFIED SEQUELAE OF CEREBRAL INFARCTION (6) Concussion with brief LOC Code(s): S06.0X9A - CONCUSSION W LOSS OF CONSCIOUSNESS OF UNSP DURATION, INIT (7) Coronary artery disease Code(s): I25.10 - ATHSCL HEART DISEASE OF [place] CORONARY ARTERY W/O ANG PCTRS (8) GERD (gastroesophageal reflux disease) Code(s): K21.9 - GASTRO-ESOPHAGEAL REFLUX DISEASE WITHOUT ESOPHAGITIS (9) History of hydrocelectomy Code(s): Z98.890 - OTHER SPECIFIED POSTPROCEDURAL STATES (10) Hyperlipidemia Code(s): E78.5 - HYPERLIPIDEMIA, UNSPECIFIED (11) Hypertension Code(s): I10 - ESSENTIAL (PRIMARY) HYPERTENSION (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 Code(s): I25.2 - OLD MYOCARDIAL INFARCTION (13) Syncope and collapse Code(s): R55 - SYNCOPE AND COLLAPSE (14) Constipation Code(s): K59.00 - CONSTIPATION, UNSPECIFIED Assessment/Plan Assessment/plan: acute urinary retention, neurogenic bladder, bilateral ureterohydronephrosis, hyperkalemia, post renal azotemia, DVT of lower extremities, s/p cystourethroscopy, s/p TURP/TUVP, HTN, HLD, PAD, GERD, [place] X3, s/p CVA, BPH, 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
[2020-05-07] MEDS: amLODIPine BESYLATE 10 MG TABLET (FP) PO SCH (09:38)
[2020-05-07] MEDS: MULTIVITAMINS THER W-MINERALS COMBO TABLET (FP) PO SCH (09:38)
[2020-05-07] MEDS: RANOLAZINE E.R. 500 MG TABLET (FP) PO SCH (09:38)
[2020-05-07] MEDS: PANTOPRAZOLE 40 MG TABLET PO SCH (09:38)
[2020-05-07] MEDS: ASPIRIN COATED 81 MG TABLET.EC PO SCH (09:39)
[2020-05-07] MEDS: ENOXAPARIN NA (PORCINE) 80 MG/0.8 ML DISP.SYRIN SQ SCH (09:39)
[2020-05-07] MEDS: POLYETHYLENE GLYCOL 3350 119 GM BTL PO SCH (09:41)
[2020-05-07 13:54] VITALS: BP 113/51; PULSE 75; TEMP 97.5
--- NOTE | 2020-05-07 15:15 | DS ---
Physical Examination Vital Signs: Vital Signs Temperature 97.5 F L 05/07/20 13:53 Pulse Rate 75 05/07/20 13:53 Respiratory Rate 18 05/07/20 13:53 Blood Pressure 113/51 L 05/07/20 13:53 O2 Sat by Pulse Oximetry (%) 100 05/07/20 13:53 Constitutional: Yes: Well Nourished, No Distress, Calm Eyes: Yes: Conjunctiva Clear, EOM Intact HENT: Yes: Atraumatic, Normocephalic Neck: Yes: Supple, Trachea Midline Cardiovascular: Yes: Regular Rate and Rhythm Respiratory: Yes: Regular, CTA Bilaterally Gastrointestinal: Yes: Normal Bowel Sounds, Soft ...Rectal Exam: Yes: Deferred Renal/: Yes: Reed Present Breast(s): Yes: WNL Musculoskeletal: Yes: Muscle Weakness Extremities: Yes: WNL Edema: No Peripheral Pulses WNL: Yes Integumentary: Yes: WNL Neurological: Yes: Alert, Oriented, Unsteady Gait, Weakness ...Motor Strength: LLE (muscle weakness), RLE (muscle weakness) Psychiatric: Yes: Alert, Oriented Labs: CBC, BMP 05/07/20 06:06 05/07/20 06:06 Discharge Summary Problems reviewed: Yes Reason For Visit: RETENTION OF URINE,ACUTE KIDNEY INJ BOTTOM MAN KID DISEA Current Active Problems Acute kidney injury superimposed on CKD (Acute) Constipation (Acute) Hyperkalemia (Acute) Leukocytosis (Acute) Urinary retention (Acute) Condition: Fair - Instructions Diet, Activity, Other Instructions: Continue present meds. Anticoagulation for 6 months. Activity as tolerated. Physical therapy. Transfer to [facility] for short term rehab. Follow up with Urologist Dr. Ramiro Galindo. Total time spent over 30 minutes. Disposition: LONG-TERM FACILITY - Home Medications Comprehensive Discharge Medication List: Ambulatory Orders Amlodipine Besylate [Norvasc -] 10 mg PO DAILY 04/06/20 Aspirin [ASA -] 81 mg PO DAILY 04/06/20 Atorvastatin Ca [Lipitor] 80 mg PO HS 04/06/20 Multivit-Min/FA/Lycopen/Lutein [Centrum Silver Tablet] 1 each PO DAILY 04/06/20 Nitroglycerin 0.4 mg SL PRN 04/06/20 Ranolazine [Ranexa] 500 mg PO BID 04/06/20 [place] Fruit/Zinc Picoli [[place] 450 mg Capsule] 1 each PO DAILY 04/06/20 Amlodipine Besylate [Norvasc -] 10 mg PO DAILY tablet 04/10/20 Aspirin Coated [Ecotrin -] 81 mg PO DAILY tablet.ec 04/10/20 Atorvastatin Ca [Lipitor] 80 mg PO HS tablet 04/10/20 Nitroglycerin Sublingual [Nitrostat -] 0.4 mg SL Q5M PRN tab 04/10/20 Pantoprazole Sodium [Protonix -] 40 mg PO DAILY tablet.ec 04/10/20 Ranolazine [Ranexa -] 500 mg PO BID tab 04/10/20 Acetaminophen [Tylenol .Regular Strength -] 650 mg PO Q6H PRN tablet 05/07/20 Amlodipine Besylate [Norvasc -] 10 mg PO DAILY tablet 05/07/20 Aspirin Coated [Ecotrin -] 81 mg PO DAILY tablet.ec 05/07/20 Atorvastatin Ca [Lipitor] 80 mg PO HS tablet 05/07/20 Docusate Sodium [Colace -] 100 mg PO TID capsule 05/07/20 Enoxaparin [Lovenox -] 70 mg SQ Q12H disp.syrin 05/07/20 Gabapentin [Neurontin -] 100 mg PO TID capsule 05/07/20 Nitroglycerin Sublingual [Nitrostat -] 0.4 mg SL Q5M PRN tab 05/07/20 Pantoprazole Sodium [Protonix -] 40 mg PO DAILY tablet.ec 05/07/20 Polyethylene Glycol 3350 [Miralax 119 gm Btl -] 17 gm PO DAILY bottle 05/07/20 Ranolazine [Ranexa -] 500 mg PO BID tab 05/07/20 Sennosides [Senna -] 3 tab PO HS PRN tablet 05/07/20
--- NOTE | 2020-05-07 16:42 | PATH ---
Surgical Pathology Report Patient Name: HERI MADRID Med. Rec. #: [id number] /Age/Gender: 1930 (Age: 89) / M Account: [id number] Location: [facility] MED/SURG Taken: 05/02/2020 Received: 05/05/2020 Reported: 05/07/2020 Physicians: Ramiro Galindo M.D. Specimen(s) Received PROSTATE CHIPS Clinical History Retention of urine, acute kidney injury, chronic kidney disease Final Diagnosis PROSTATE CHIPS, TRANSURETHRAL RESECTION: BENIGN PROSTATIC TISSUE SHOWING CYSTIC ACINAR ATROPHY AND STROMAL HYPERPLASIA. Electronically Signed Laura Damon M.D. Gross Description Received in formalin labeled "prostate chips," is a 3 g, 4.0 x 4.0 x 0.4 cm aggregate of cruz, firm to rubbery portions of tissue, consistent with prostate chips. The specimen is serially sectioned and entirely submitted in 3 cassettes. DL/05/05/2020 saudi/05/05/2020
--- NOTE | 2020-05-07 19:38 | PN ---
Progress Note, Physician History of Present Illness: Pt seen and examined at bedside. He is awake and alert. He denies shortness of breath. - Current Medication List Current Medications: Active Medications Acetaminophen (Tylenol -) 650 mg PO Q6H PRN PRN Reason: PAIN LEVEL 6-10 Last Admin: 05/04/20 05:13 Dose: 650 mg Documented by: Amlodipine Besylate (Norvasc -) 10 mg PO DAILY [facility] Last Admin: 05/07/20 09:38 Dose: 10 mg Documented by: Aspirin (Ecotrin -) 81 mg PO DAILY [facility] Last Admin: 05/07/20 09:39 Dose: 81 mg Documented by: Atorvastatin Calcium (Lipitor -) 80 mg PO HS [facility] Last Admin: 05/06/20 21:29 Dose: 80 mg Documented by: Docusate Sodium (Colace -) 100 mg PO TID [facility] Last Admin: 05/07/20 15:08 Dose: Not Given Documented by: Enoxaparin Sodium (Lovenox -) 70 mg SQ Q12H [facility] Last Admin: 05/07/20 09:39 Dose: 70 mg Documented by: Gabapentin (Neurontin -) 100 mg PO TID [facility] Last Admin: 05/07/20 15:08 Dose: Not Given Documented by: Multivitamins/Minerals (Theragran-M) 1 each PO DAILY [facility] Last Admin: 05/07/20 09:38 Dose: 1 each Documented by: Nitroglycerin (Nitrostat -) 0.4 mg SL Q5M PRN PRN Reason: FOR CHEST PAIN Ondansetron HCl (Zofran Injection) 4 mg IVPUSH Q6H PRN PRN Reason: NAUSEA AND/OR VOMITING Pantoprazole Sodium (Protonix -) 40 mg PO DAILY [facility] Last Admin: 05/07/20 09:38 Dose: 40 mg Documented by: Polyethylene Glycol (Miralax (For Daily Use) -) 17 gm PO DAILY [facility] Last Admin: 05/07/20 09:41 Dose: 17 grams Documented by: Ranolazine (Ranexa -) 500 mg PO BID [facility] Last Admin: 05/07/20 09:38 Dose: 500 mg Documented by: Senna (Senna -) 3 tab PO HS PRN PRN Reason: CONSTIPATION Last Admin: 05/04/20 20:59 Dose: 3 tab Documented by: - Objective Vital Signs: Vital Signs Temperature 97.5 F L 05/07/20 13:53 Pulse Rate 75 05/07/20 13:53 Respiratory Rate 18 05/07/20 13:53 Blood Pressure 113/51 L 05/07/20 13:53 O2 Sat by Pulse Oximetry (%) 100 05/07/20 13:53 Constitutional: Yes: Calm Eyes: Yes: Conjunctiva Clear HENT: Yes: Atraumatic Neck: Yes: Supple Cardiovascular: Yes: S1, S2 Respiratory: Yes: CTA Bilaterally Genitourinary: Yes: Louie Present Musculoskeletal: Yes: WNL Edema: No Neurological: Yes: Oriented Psychiatric: Yes: Oriented Labs: CBC, BMP 05/07/20 06:06 05/07/20 06:06 INR, PTT INR 1.07 (0.83-1.09) 04/25/20 04:00 Problem List - Problems (1) Acute kidney injury superimposed on CKD Code(s): N17.9 - ACUTE KIDNEY FAILURE, UNSPECIFIED; N18.9 - CHRONIC KIDNEY DISE ASE, UNSPECIFIED (2) Hyperkalemia Code(s): E87.5 - HYPERKALEMIA (3) Urinary retention Code(s): R33.9 - RETENTION OF URINE, UNSPECIFIED (4) BPH (benign prostatic hyperplasia) Code(s): N40.0 - BENIGN PROSTATIC HYPERPLASIA WITHOUT LOWER URINRY TRACT SYMP (5) Coronary artery disease Code(s): I25.10 - ATHSCL HEART DISEASE OF [place] CORONARY ARTERY W/O ANG PCTRS (6) History of hydrocelectomy Code(s): Z98.890 - OTHER SPECIFIED POSTPROCEDURAL STATES (7) Hyperlipidemia Code(s): E78.5 - HYPERLIPIDEMIA, UNSPECIFIED (8) Hypertension Code(s): I10 - ESSENTIAL (PRIMARY) HYPERTENSION (9) Syncope and collapse Code(s): R55 - SYNCOPE AND COLLAPSE Assessment/Plan Current Medications Generic Name Dose Route Start Last Admin Trade Name Freq PRN Reason Stop Dose Admin Acetaminophen 650 mg 05/03/20 09:07 05/04/20 05:13 Tylenol - PO 650 mg Q6H PRN Administration PAIN LEVEL 6-10 Amlodipine Besylate 10 mg 05/04/20 10:34 05/07/20 09:38 Norvasc - PO 10 mg DAILY REFUGIO Administration Aspirin 81 mg 05/03/20 10:00 05/07/20 09:39 Ecotrin - PO 81 mg DAILY REFUGIO Administration Atorvastatin Calcium 80 mg 05/02/20 22:00 05/06/20 21:29 Lipitor - PO 80 mg HS REFUGIO Administration Docusate Sodium 100 mg 05/04/20 14:00 05/07/20 15:08 Colace - PO Not Given TID REFUGIO Enoxaparin Sodium 70 mg 05/03/20 09:15 05/07/20 09:39 Lovenox - SQ 70 mg Q12H REFUGIO Administration Gabapentin 100 mg 05/02/20 22:00 05/07/20 15:08 Neurontin - PO Not Given TID REFUGIO Multivitamins/Minerals 1 each 05/03/20 10:00 05/07/20 09:38 Theragran-M PO 1 each DAILY RE[facility]UGIO Administration Nitroglycerin 0.4 mg 05/02/20 14:28 Nitrostat - SL Q5M PRN FOR CHEST PAIN Ondansetron HCl 4 mg 05/02/20 13:58 Zofran Injection IVPUSH Q6H PRN NAUSEA AND/OR VOMITING Pantoprazole Sodium 40 mg 05/03/20 10:00 05/07/20 09:38 Protonix - PO 40 mg DAILY REFUGIO Administration Polyethylene Glycol 17 gm 05/06/20 10:00 05/07/20 09:41 Miralax (For Daily Use) - PO 17 grams DAILY RE[facility]UG[facility] Administration Ranolazine 500 mg 05/02/20 22:00 05/07/20 09:38 Ranexa - PO 500 mg BID REFUGIO Administration Senna 3 tab 05/02/20 14:28 05/04/20 20:59 Senna - PO 3 tab HS PRN Administration CONSTIPATION Impression 1. POOJA 2. CKD 3. hyperkalemia 4. hld 5. hydronephrosis 6. urinary retention 7. cva 8. htn 9. cad s/p GA 10. PAD 11. gerd 12. leukocytosis Plan - louie in place - pt will follow with urology - renal function stable - can follow as outpt
== END 2020-05-07 16:09 | DRG 666 ==
LOC: JER 03:06 → JERBED 07:01 → J7W 21:24
PROVIDERS: ADMIT Internal Medicine; ATTEND Internal Medicine
PROC: 30233N1 Transfusion of Nonautologous Red Blood Cells into Peripheral Vein, Percutaneous Approach (ICD-10-PCS; 2020-05-01)
PROC: 0VB08ZZ Excision of Prostate, Via Natural or Artificial Opening Endoscopic (ICD-10-PCS; principal; 2020-05-02 12:00)
PROC: 0V508ZZ Destruction of Prostate, Via Natural or Artificial Opening Endoscopic (ICD-10-PCS; 2020-05-02 12:00)
DX: N17.9 Acute kidney failure, unspecified (principal); I82.411 Acute embolism and thrombosis of right femoral vein; J98.11 Atelectasis; N40.1 Benign prostatic hyperplasia with lower urinary tract symptoms; N13.39 Other hydronephrosis; K21.9 Gastro-esophageal reflux disease without esophagitis; I25.10 Atherosclerotic heart disease of native coronary artery without angina pectoris; E78.5 Hyperlipidemia, unspecified; I10 Essential (primary) hypertension; I25.2 Old myocardial infarction; R33.8 Other retention of urine; R55 Syncope and collapse; E87.5 Hyperkalemia; I73.9 Peripheral vascular disease, unspecified; I12.9 Hypertensive chronic kidney disease with stage 1 through stage 4 chronic kidney disease, or unspecified chronic kidney disease; N18.9 Chronic kidney disease, unspecified; Z86.73 Personal history of transient ischemic attack (TIA), and cerebral infarction without residual deficits; D50.0 Iron deficiency anemia secondary to blood loss (chronic); D72.829 Elevated white blood cell count, unspecified; R26.81 Unsteadiness on feet; M62.81 Muscle weakness (generalized)
CPT/HCPCS: 36415; 36430; 70450-TC; 71045-TC-FY; 72125-TC; 74176-TC; 80048; 80051; 80053; 81003; 82550; 82728; 83540; 83550; 83880; 84484; 85025; 85379; 85610; 85730; 86850; 86900; 86901; 86922; 87040; 87086; 88305-TC; 93005; 93010; 93970-TC; 94760; 97116-GP; 97161-GP; 99285-25; C9803; J0131; J1756; P9058; U0003

== ENCOUNTER 2020-06-24 23:41 | Inpatient (IN) | payer OTHER ==
[2020-06-25 00:14] VITALS: BMI 26.6
[2020-06-25 02:01] LABS: BASO % 0.5 % (0-2.0); EOS % 0.1 % (0-4.5); HEMOGLOBIN 8.4 GM/dL (11.7-16.9); LYMPH % 2.7 % (8-40); MCHC 33.6 g/dl (32.0-35.9); MEAN CELL VOLUME 92.3 fl (80-96); MEAN PLT VOLUME 7.2 fl (7.5-11.1); MONO % 7.4 % (3.8-10.2); NEUT % 89.3 % (42.8-82.8); PLATELET COUNT 259 K/MM3 (134-434); RBC 2.71 M/mm3 (4.00-5.60); RDW 15.5 % (11.9-15.9); WHITE BLOOD COUNT 9.6 K/mm3 (4.0-10.0)
[2020-06-25 02:10] LABS: INR 1.14 (0.83-1.09); PROTHROMBIN TIME (PATIENT) 13.7 SEC (9.7-13.0)
[2020-06-25 02:18] LABS: ACTIVATED PTT 34.8 SECONDS (25.2-36.5)
[2020-06-25] MEDS ORDERED: ACETAMINOPHEN 1000 MG/100 ML VIAL (NON FORMULARY) IVPB ONE (02:46)
[2020-06-25 02:51] LABS: POTASSIUM 3.9 mmol/L (3.5-5.1)
[2020-06-25 02:52] LABS: BLOOD UREA NITROGEN 46.3 mg/dL (7-18); CALCIUM 8.7 mg/dL (8.5-10.1); CREATININE 1.7 mg/dL (0.55-1.3); TOT PROT 5.8 g/dl (6.4-8.2)
[2020-06-25 02:53] LABS: ALBUMIN 2.7 g/dl (3.4-5.0)
[2020-06-25] MEDS ORDERED: ACETAMINOPHEN INJECTION 100 ML IVPB ONE (02:53)
[2020-06-25 02:56] LABS: BILIRUBIN,TOTAL 0.3 mg/dL (0.2-1)
[2020-06-25 03:33] LABS: EPI CELLS 3 /uL (0-25.1); HYALINE CASTS 0 /uL (0-3.1); URINE APPEARANCE CLOUDY; URINE BACTERIA >9,000 /uL (0-1359); URINE BILIRUBIN NEGATIVE (NEGATIVE); URINE COLOR YELLOW; URINE GLUCOSE (UA) NEGATIVE (NEGATIVE); URINE KETONE NEGATIVE (NEGATIVE); URINE LEUK ESTERASE 2+ (NEGATIVE); URINE NITRITE NEGATIVE (NEGATIVE); URINE PROTEIN 1+ (NEGATIVE); URINE RBC 49 /uL (0-23.9); URINE UROBILINOGEN 0.2 mg/dL (0.2-1.0); URINE WBC 1168 /uL (0-25.8)
[2020-06-25] MEDS ORDERED: PIPERACILLIN/TAZOB 4.5 GM 4.5 GM in DEXTROSE 5%-WATER 100 ML IVPB ONE (04:08)
[2020-06-25] MEDS ORDERED: PIPERACILLIN/TAZOB 4.5 GM 4.5 GM/100 ML BAG IVPB ONE (04:26)
[2020-06-25 05:39] LABS: VENOUS O2 SATURATION 86.9 % (70-80); VENOUS PCO2 30.4 mmHg (38-52); VENOUS PH 7.408 (7.310-7.410)
[2020-06-25] MEDS ORDERED: NITROGLYCERIN SUBLINGUAL 1/150 0.4 MG TAB SL PRN (06:07)
[2020-06-25] MEDS ORDERED: ACETAMINOPHEN 325 MG TABLET (FP) PO PRN (06:22)
[2020-06-25] MEDS: D5-1/2NS+10 MEQ KCL - 10 MEQ/1,000 ML INFUS.BAG IV SCH (07:27)
[2020-06-25] MEDS ORDERED: PANTOPRAZOLE 20 MG TABLET PO ONE (09:56)
[2020-06-25] MEDS ORDERED: DOCUSATE SODIUM 100 MG CAPSULE (FP) PO ONE (09:56)
[2020-06-25] MEDS ORDERED: amLODIPine BESYLATE 5 MG TABLET (FP) ONE (09:56)
[2020-06-25] MEDS ORDERED: ENOXAPARIN NA (PORCINE) 80 MG/0.8 ML DISP.SYRIN SQ ONE (09:57)
[2020-06-25] MEDS ORDERED: ENOXAPARIN NA (PORCINE) 80 MG/0.8 ML DISP.SYRIN SQ SCH (10:00)
[2020-06-25] MEDS ORDERED: ASPIRIN COATED 81 MG TABLET.EC PO SCH (10:00)
[2020-06-25] MEDS: PANTOPRAZOLE 40 MG TABLET PO SCH (10:00)
[2020-06-25] MEDS: DOCUSATE SODIUM 100 MG CAPSULE (FP) PO SCH ×3 (10:00→21:38)
[2020-06-25] MEDS: amLODIPine BESYLATE 10 MG TABLET (FP) PO SCH (10:00)
[2020-06-25] MEDS: POLYETHYLENE GLYCOL 3350 119 GM BTL PO SCH (11:46)
[2020-06-25] MEDS: MULTIVITAMINS THER W-MINERALS COMBO TABLET (FP) PO SCH (11:58)
[2020-06-25] MEDS: RANOLAZINE E.R. 500 MG TABLET (FP) PO SCH ×2 (11:58→21:37)
[2020-06-25] MEDS ORDERED: PT OWN MED DRAWER 7, Y5N ONE (13:39)
[2020-06-25] MEDS: GABAPENTIN 100 MG CAPSULE PO SCH ×2 (13:58→21:38)
[2020-06-25] MEDS ORDERED: CEFTRIAXONE 1 GM in DEXTROSE 5%-WATER - 50 ML IVPB SCH (14:15)
[2020-06-25] MEDS ORDERED: IRON SUCROSE INJECTION 200 MG in SODIUM CHLORIDE 90 ML IVPB ONE (15:00)
[2020-06-25] MEDS ORDERED: DEXTROSE 5%-WATER - 50 ML IVPB ONE (15:16)
[2020-06-25] MEDS ORDERED: cefTRIAXone SODIUM 1 GM VIAL ONE (15:16)
[2020-06-25] MEDS ORDERED: TAMSULOSIN HCL 0.4 MG CAP PO ONE (16:04)
[2020-06-25] MEDS: SENNOSIDES 8.6MG TABLET (FP) PO PRN (21:38)
[2020-06-25] MEDS: ATORVASTATIN CA 80 MG TABLET (FP) PO SCH (21:38)
[2020-06-25] MEDS: BETHANECHOL CHLORIDE 25 MG TABLET PO SCH (21:40)
[2020-06-26] MEDS: DOCUSATE SODIUM 100 MG CAPSULE (FP) PO SCH ×3 (06:02→21:47)
[2020-06-26] MEDS: BETHANECHOL CHLORIDE 25 MG TABLET PO SCH ×3 (06:02→21:46)
[2020-06-26] MEDS: GABAPENTIN 100 MG CAPSULE PO SCH ×3 (06:02→21:47)
[2020-06-26 06:49] LABS: BASO % 0.4 % (0-2.0); EOS % 0.6 % (0-4.5); HEMATOCRIT 26.4 % (35.4-49); HEMOGLOBIN 8.7 GM/dL (11.7-16.9); LYMPH % 6.7 % (8-40); MCH 30.2 pg (25.7-33.7); MCHC 32.8 g/dl (32.0-35.9); MEAN PLT VOLUME 7.5 fl (7.5-11.1); MONO % 11.1 % (3.8-10.2); NEUT % 81.2 % (42.8-82.8); PLATELET COUNT 254 K/MM3 (134-434); RBC 2.87 M/mm3 (4.00-5.60); RDW 15.9 % (11.9-15.9); WHITE BLOOD COUNT 8.8 K/mm3 (4.0-10.0)
[2020-06-26 07:10] LABS: POTASSIUM 4.2 mmol/L (3.5-5.1)
[2020-06-26 07:16] LABS: ALBUMIN 2.4 g/dl (3.4-5.0); BLOOD UREA NITROGEN 37.3 mg/dL (7-18); CALCIUM 8.8 mg/dL (8.5-10.1)
[2020-06-26 07:19] LABS: CREATININE 1.6 mg/dL (0.55-1.3)
[2020-06-26 07:20] LABS: BILIRUBIN,TOTAL 0.4 mg/dL (0.2-1); TOT PROT 5.7 g/dl (6.4-8.2)
[2020-06-26] MEDS ORDERED: ACETAMINOPHEN 325 MG TABLET (FP) PO SCH (07:45)
[2020-06-26] MEDS ORDERED: traMADol HCL 50 MG TABLET PO SCH ×2 (07:45→10:00)
[2020-06-26] MEDS ORDERED: DEXTROSE 5%-WATER 100 ML IVPB ONE (09:04)
[2020-06-26] MEDS: ENOXAPARIN NA (PORCINE) 40 MG/0.4 ML DISP.SYRIN SQ SCH (09:09)
[2020-06-26] MEDS: MULTIVITAMINS THER W-MINERALS COMBO TABLET (FP) PO SCH (09:09)
[2020-06-26] MEDS: amLODIPine BESYLATE 10 MG TABLET (FP) PO SCH (09:09)
[2020-06-26] MEDS: CEFTRIAXONE 2 GM in DEXTROSE 5%-WATER 2 GM/100 ML BAG IVPB SCH (09:09)
[2020-06-26] MEDS: RANOLAZINE E.R. 500 MG TABLET (FP) PO SCH ×2 (09:09→21:46)
[2020-06-26] MEDS: PANTOPRAZOLE 40 MG TABLET PO SCH (09:09)
[2020-06-26] MEDS: POLYETHYLENE GLYCOL 3350 119 GM BTL PO SCH (09:10)
[2020-06-26] MEDS ORDERED: PT OWN MED DRAWER 7, Y5N ONE ×2 (13:52→21:37)
[2020-06-26] MEDS: D5-1/2NS+10 MEQ KCL - 10 MEQ/1,000 ML INFUS.BAG IV SCH ×2 (13:59→14:00)
[2020-06-26] MEDS: ACETAMINOPHEN 325 MG TABLET (FP) PO PRN (21:45)
[2020-06-26] MEDS: ATORVASTATIN CA 80 MG TABLET (FP) PO SCH (21:46)
[2020-06-27] MEDS ORDERED: guaiFENesin 200 MG/10 ML 10 ML UNIT-DOSE CUPS PO PRN (00:46)
[2020-06-27] MEDS ORDERED: PT OWN MED DRAWER 7, Y5N ONE ×2 (05:52→16:33)
[2020-06-27] MEDS: D5-1/2NS+10 MEQ KCL - 10 MEQ/1,000 ML INFUS.BAG IV SCH ×2 (06:01→20:52)
[2020-06-27] MEDS: traMADol HCL 50 MG TABLET PO PRN ×2 (06:09→21:02)
[2020-06-27] MEDS: GABAPENTIN 100 MG CAPSULE PO SCH ×3 (06:09→21:02)
[2020-06-27] MEDS: BETHANECHOL CHLORIDE 25 MG TABLET PO SCH ×3 (06:10→21:02)
[2020-06-27] MEDS: DOCUSATE SODIUM 100 MG CAPSULE (FP) PO SCH ×3 (06:10→21:01)
[2020-06-27 07:58] LABS: BASO % 0.3 % (0-2.0); EOS % 0.9 % (0-4.5); HEMATOCRIT 25.8 % (35.4-49); HEMOGLOBIN 8.5 GM/dL (11.7-16.9); LYMPH % 7.9 % (8-40); MEAN PLT VOLUME 7.5 fl (7.5-11.1); MONO % 13.4 % (3.8-10.2); NEUT % 77.5 % (42.8-82.8); PLATELET COUNT 249 K/MM3 (134-434); RBC 2.83 M/mm3 (4.00-5.60); RDW 15.7 % (11.9-15.9)
[2020-06-27 08:14] LABS: POTASSIUM 3.9 mmol/L (3.5-5.1)
[2020-06-27 08:16] LABS: ALBUMIN 2.2 g/dl (3.4-5.0); BLOOD UREA NITROGEN 25.8 mg/dL (7-18); CALCIUM 8.9 mg/dL (8.5-10.1)
[2020-06-27 08:19] LABS: CREATININE 1.4 mg/dL (0.55-1.3)
[2020-06-27 08:21] LABS: BILIRUBIN,TOTAL 0.3 mg/dL (0.2-1); TOT PROT 5.4 g/dl (6.4-8.2)
[2020-06-27] MEDS ORDERED: DEXTROSE 5%-WATER 100 ML IVPB ONE (09:12)
[2020-06-27] MEDS: amLODIPine BESYLATE 10 MG TABLET (FP) PO SCH (09:19)
[2020-06-27] MEDS: ENOXAPARIN NA (PORCINE) 40 MG/0.4 ML DISP.SYRIN SQ SCH (09:19)
[2020-06-27] MEDS: MULTIVITAMINS THER W-MINERALS COMBO TABLET (FP) PO SCH (09:19)
[2020-06-27] MEDS: PANTOPRAZOLE 40 MG TABLET PO SCH (09:19)
[2020-06-27] MEDS: CEFTRIAXONE 2 GM in DEXTROSE 5%-WATER 2 GM/100 ML BAG IVPB SCH (09:20)
[2020-06-27] MEDS: RANOLAZINE E.R. 500 MG TABLET (FP) PO SCH ×2 (09:21→21:01)
[2020-06-27 09:45] LABS: PLATELET ESTIMATE NORMAL
[2020-06-27] MEDS: POLYETHYLENE GLYCOL 3350 119 GM BTL PO SCH (10:10)
[2020-06-27] MEDS: ATORVASTATIN CA 80 MG TABLET (FP) PO SCH (21:02)
[2020-06-27] MEDS: SENNOSIDES 8.6MG TABLET (FP) PO PRN (21:03)
[2020-06-28] MEDS: BETHANECHOL CHLORIDE 25 MG TABLET PO SCH ×3 (05:51→22:48)
[2020-06-28] MEDS: DOCUSATE SODIUM 100 MG CAPSULE (FP) PO SCH ×3 (05:51→22:45)
[2020-06-28] MEDS: GABAPENTIN 100 MG CAPSULE PO SCH ×3 (05:51→22:47)
[2020-06-28 08:43] LABS: BASO % 0.3 % (0-2.0); EOS % 1.2 % (0-4.5); HEMATOCRIT 25.9 % (35.4-49); HEMOGLOBIN 8.7 GM/dL (11.7-16.9); LYMPH % 9.8 % (8-40); MCH 30.7 pg (25.7-33.7); MCHC 33.7 g/dl (32.0-35.9); MEAN CELL VOLUME 91.2 fl (80-96); MEAN PLT VOLUME 7.8 fl (7.5-11.1); MONO % 13.9 % (3.8-10.2); NEUT % 74.8 % (42.8-82.8); PLATELET COUNT 256 K/MM3 (134-434); RBC 2.84 M/mm3 (4.00-5.60); RDW 15.9 % (11.9-15.9)
[2020-06-28 08:58] LABS: POTASSIUM 4.1 mmol/L (3.5-5.1)
[2020-06-28 09:04] LABS: ALBUMIN 2.2 g/dl (3.4-5.0); BLOOD UREA NITROGEN 20.1 mg/dL (7-18); CALCIUM 8.8 mg/dL (8.5-10.1)
[2020-06-28 09:08] LABS: CREATININE 1.6 mg/dL (0.55-1.3)
[2020-06-28 09:09] LABS: BILIRUBIN,TOTAL 0.6 mg/dL (0.2-1); TOT PROT 5.7 g/dl (6.4-8.2)
[2020-06-28] MEDS ORDERED: DEXTROSE 5%-WATER 100 ML IVPB ONE (10:30)
[2020-06-28] MEDS: CEFTRIAXONE 2 GM in DEXTROSE 5%-WATER 2 GM/100 ML BAG IVPB SCH (10:38)
[2020-06-28] MEDS: ENOXAPARIN NA (PORCINE) 40 MG/0.4 ML DISP.SYRIN SQ SCH (10:40)
[2020-06-28] MEDS: amLODIPine BESYLATE 10 MG TABLET (FP) PO SCH (10:41)
[2020-06-28] MEDS: MULTIVITAMINS THER W-MINERALS COMBO TABLET (FP) PO SCH (10:41)
[2020-06-28] MEDS: POLYETHYLENE GLYCOL 3350 119 GM BTL PO SCH (10:41)
[2020-06-28] MEDS: PANTOPRAZOLE 40 MG TABLET PO SCH (10:41)
[2020-06-28] MEDS: RANOLAZINE E.R. 500 MG TABLET (FP) PO SCH ×2 (10:41→22:47)
[2020-06-28] MEDS ORDERED: PT OWN MED DRAWER 7, Y5N ONE ×2 (13:23→22:34)
[2020-06-28] MEDS: D5-1/2NS+10 MEQ KCL - 10 MEQ/1,000 ML INFUS.BAG IV SCH (13:37)
[2020-06-28] MEDS ORDERED: TAMSULOSIN HCL 0.4 MG CAP PO ONE (16:13)
[2020-06-28] MEDS ORDERED: SENNOSIDES 8.6MG TABLET (FP) PO SCH ×2 (22:00)
[2020-06-28] MEDS: ATORVASTATIN CA 80 MG TABLET (FP) PO SCH (22:46)
[2020-06-29] MEDS: GABAPENTIN 100 MG CAPSULE PO SCH ×3 (06:29→22:45)
[2020-06-29] MEDS: DOCUSATE SODIUM 100 MG CAPSULE (FP) PO SCH ×3 (06:29→22:45)
[2020-06-29] MEDS: BETHANECHOL CHLORIDE 25 MG TABLET PO SCH ×3 (06:30→22:46)
[2020-06-29 08:27] LABS: BASO % 0.5 % (0-2.0); EOS % 1.6 % (0-4.5); HEMATOCRIT 26.4 % (35.4-49); MCH 30.9 pg (25.7-33.7); MCHC 34.1 g/dl (32.0-35.9); MEAN CELL VOLUME 90.8 fl (80-96); MEAN PLT VOLUME 7.6 fl (7.5-11.1); MONO % 11.9 % (3.8-10.2); PLATELET COUNT 291 K/MM3 (134-434); RBC 2.91 M/mm3 (4.00-5.60); RDW 15.1 % (11.9-15.9); WHITE BLOOD COUNT 8.7 K/mm3 (4.0-10.0)
[2020-06-29 08:50] LABS: POTASSIUM 4.4 mmol/L (3.5-5.1)
[2020-06-29 08:54] LABS: ALBUMIN 2.2 g/dl (3.4-5.0); BLOOD UREA NITROGEN 20.1 mg/dL (7-18)
[2020-06-29 08:57] LABS: CREATININE 1.4 mg/dL (0.55-1.3)
[2020-06-29 08:58] LABS: BILIRUBIN,TOTAL 0.5 mg/dL (0.2-1); TOT PROT 5.7 g/dl (6.4-8.2)
[2020-06-29] MEDS ORDERED: DEXTROSE 5%-WATER 100 ML IVPB ONE (10:09)
[2020-06-29] MEDS: CEFTRIAXONE 2 GM in DEXTROSE 5%-WATER 2 GM/100 ML BAG IVPB SCH (10:14)
[2020-06-29] MEDS: MULTIVITAMINS THER W-MINERALS COMBO TABLET (FP) PO SCH (10:15)
[2020-06-29] MEDS: amLODIPine BESYLATE 10 MG TABLET (FP) PO SCH (10:15)
[2020-06-29] MEDS: POLYETHYLENE GLYCOL 3350 119 GM BTL PO SCH (10:15)
[2020-06-29] MEDS: PANTOPRAZOLE 40 MG TABLET PO SCH (10:15)
[2020-06-29] MEDS: ENOXAPARIN NA (PORCINE) 40 MG/0.4 ML DISP.SYRIN SQ SCH (10:15)
[2020-06-29] MEDS: RANOLAZINE E.R. 500 MG TABLET (FP) PO SCH ×2 (10:15→22:44)
[2020-06-29] MEDS: HYDROCORTISONE 2.5% TOPICAL CREAM 30 GM TUBE PR SCH ×2 (10:16→22:51)
[2020-06-29] MEDS: D5-1/2NS+10 MEQ KCL - 10 MEQ/1,000 ML INFUS.BAG IV SCH (10:33)
[2020-06-29] MEDS ORDERED: PT OWN MED DRAWER 7, Y5N ONE ×2 (15:09→22:42)
[2020-06-29] MEDS: ACETAMINOPHEN 325 MG TABLET (FP) PO PRN (21:44)
[2020-06-29] MEDS: ATORVASTATIN CA 80 MG TABLET (FP) PO SCH (22:44)
[2020-06-29] MEDS: SENNOSIDES 8.6MG TABLET (FP) PO SCH (22:44)
[2020-06-30] MEDS: D5-1/2NS+10 MEQ KCL - 10 MEQ/1,000 ML INFUS.BAG IV SCH ×2 (03:50→09:40)
[2020-06-30] MEDS ORDERED: PT OWN MED DRAWER 7, Y5N ONE ×3 (06:34→21:19)
[2020-06-30] MEDS: DOCUSATE SODIUM 100 MG CAPSULE (FP) PO SCH (06:47)
[2020-06-30] MEDS: GABAPENTIN 100 MG CAPSULE PO SCH ×3 (06:47→21:57)
[2020-06-30] MEDS: BETHANECHOL CHLORIDE 25 MG TABLET PO SCH ×3 (06:48→21:58)
[2020-06-30] MEDS: traMADol HCL 50 MG TABLET PO PRN (06:55)
[2020-06-30 08:20] LABS: BASO % 0.6 % (0-2.0); EOS % 2.4 % (0-4.5); HEMATOCRIT 26.9 % (35.4-49); HEMOGLOBIN 8.9 GM/dL (11.7-16.9); LYMPH % 12.9 % (8-40); MCH 30.1 pg (25.7-33.7); MEAN CELL VOLUME 91.3 fl (80-96); MEAN PLT VOLUME 7.6 fl (7.5-11.1); MONO % 9.2 % (3.8-10.2); NEUT % 74.9 % (42.8-82.8); PLATELET COUNT 333 K/MM3 (134-434); RBC 2.94 M/mm3 (4.00-5.60); RDW 15.5 % (11.9-15.9); WHITE BLOOD COUNT 9.9 K/mm3 (4.0-10.0)
[2020-06-30] MEDS ORDERED: DEXTROSE 5%-WATER 100 ML IVPB ONE ×2 (09:06→09:20)
[2020-06-30] MEDS: MULTIVITAMINS THER W-MINERALS COMBO TABLET (FP) PO SCH (09:14)
[2020-06-30] MEDS: ENOXAPARIN NA (PORCINE) 40 MG/0.4 ML DISP.SYRIN SQ SCH (09:14)
[2020-06-30] MEDS: amLODIPine BESYLATE 10 MG TABLET (FP) PO SCH (09:14)
[2020-06-30] MEDS: PANTOPRAZOLE 40 MG TABLET PO SCH (09:14)
[2020-06-30] MEDS: RANOLAZINE E.R. 500 MG TABLET (FP) PO SCH ×2 (09:14→21:58)
[2020-06-30 09:21] LABS: POTASSIUM 4.5 mmol/L (3.5-5.1)
[2020-06-30 09:31] LABS: CALCIUM 9.4 mg/dL (8.5-10.1)
[2020-06-30 09:32] LABS: ALBUMIN 2.2 g/dl (3.4-5.0)
[2020-06-30 09:34] LABS: BLOOD UREA NITROGEN 20.4 mg/dL (7-18); CREATININE 1.4 mg/dL (0.55-1.3)
[2020-06-30] MEDS: HYDROCORTISONE 2.5% TOPICAL CREAM 30 GM TUBE PR SCH ×2 (09:34→21:58)
[2020-06-30] MEDS: POLYETHYLENE GLYCOL 3350 119 GM BTL PO SCH ×3 (09:35→21:58)
[2020-06-30] MEDS: CEFTRIAXONE 2 GM in DEXTROSE 5%-WATER 2 GM/100 ML BAG IVPB SCH (09:35)
[2020-06-30 09:37] LABS: BILIRUBIN,TOTAL 0.4 mg/dL (0.2-1); TOT PROT 5.8 g/dl (6.4-8.2)
[2020-06-30] MEDS: ACETAMINOPHEN 325 MG TABLET (FP) PO PRN (11:51)
[2020-06-30] MEDS ORDERED: MINERAL OIL ENEMA 133 ML ENEMA PR ONE (12:38)
[2020-06-30] MEDS: SENNOSIDES 8.6MG TABLET (FP) PO SCH (21:56)
[2020-06-30] MEDS: ATORVASTATIN CA 80 MG TABLET (FP) PO SCH (21:56)
[2020-07-01] MEDS: traMADol HCL 50 MG TABLET PO PRN ×2 (01:03→09:21)
[2020-07-01] MEDS: BETHANECHOL CHLORIDE 25 MG TABLET PO SCH ×3 (06:55→22:26)
[2020-07-01] MEDS: GABAPENTIN 100 MG CAPSULE PO SCH ×3 (06:55→22:26)
[2020-07-01] MEDS: POLYETHYLENE GLYCOL 3350 119 GM BTL PO SCH ×3 (06:55→22:27)
[2020-07-01 08:17] LABS: BASO % 0.7 % (0-2.0); HEMATOCRIT 23.8 % (35.4-49); HEMOGLOBIN 7.8 GM/dL (11.7-16.9); MCH 29.7 pg (25.7-33.7); MCHC 32.9 g/dl (32.0-35.9); MEAN CELL VOLUME 90.4 fl (80-96); MEAN PLT VOLUME 7.2 fl (7.5-11.1); MONO % 7.8 % (3.8-10.2); NEUT % 67.5 % (42.8-82.8); PLATELET COUNT 351 K/MM3 (134-434); RBC 2.63 M/mm3 (4.00-5.60); RDW 15.2 % (11.9-15.9); WHITE BLOOD COUNT 9.9 K/mm3 (4.0-10.0)
[2020-07-01 08:26] LABS: POTASSIUM 4.5 mmol/L (3.5-5.1)
[2020-07-01 08:40] LABS: ALBUMIN 1.9 g/dl (3.4-5.0); BLOOD UREA NITROGEN 20.4 mg/dL (7-18); CALCIUM 8.6 mg/dL (8.5-10.1)
[2020-07-01 08:43] LABS: CREATININE 1.3 mg/dL (0.55-1.3)
[2020-07-01 08:44] LABS: BILIRUBIN,TOTAL 0.5 mg/dL (0.2-1); TOT PROT 5.3 g/dl (6.4-8.2)
[2020-07-01] MEDS ORDERED: DEXTROSE 5%-WATER 100 ML IVPB ONE (09:02)
[2020-07-01] MEDS: RANOLAZINE E.R. 500 MG TABLET (FP) PO SCH ×2 (09:05→22:26)
[2020-07-01] MEDS: MULTIVITAMINS THER W-MINERALS COMBO TABLET (FP) PO SCH (09:05)
[2020-07-01] MEDS: amLODIPine BESYLATE 10 MG TABLET (FP) PO SCH (09:05)
[2020-07-01] MEDS: PANTOPRAZOLE 40 MG TABLET PO SCH (09:05)
[2020-07-01] MEDS: ENOXAPARIN NA (PORCINE) 40 MG/0.4 ML DISP.SYRIN SQ SCH (09:06)
[2020-07-01] MEDS: CEFTRIAXONE 2 GM in DEXTROSE 5%-WATER 2 GM/100 ML BAG IVPB SCH (09:06)
[2020-07-01] MEDS: HYDROCORTISONE 2.5% TOPICAL CREAM 30 GM TUBE PR SCH ×2 (09:20→22:33)
[2020-07-01] MEDS: D5-1/2NS+10 MEQ KCL - 10 MEQ/1,000 ML INFUS.BAG IV SCH (09:38)
[2020-07-01] MEDS ORDERED: PT OWN MED DRAWER 7, Y5N ONE ×4 (13:01→22:24)
[2020-07-01] MEDS: ATORVASTATIN CA 80 MG TABLET (FP) PO SCH (22:26)
[2020-07-01] MEDS: SENNOSIDES 8.6MG TABLET (FP) PO SCH (22:27)
[2020-07-02] MEDS: POLYETHYLENE GLYCOL 3350 119 GM BTL PO SCH ×2 (05:28→21:47)
[2020-07-02] MEDS: GABAPENTIN 100 MG CAPSULE PO SCH ×3 (05:28→21:47)
[2020-07-02] MEDS: BETHANECHOL CHLORIDE 25 MG TABLET PO SCH (05:29)
[2020-07-02] MEDS: D5-1/2NS+10 MEQ KCL - 10 MEQ/1,000 ML INFUS.BAG IV SCH (06:50)
[2020-07-02] MEDS ORDERED: PT OWN MED DRAWER 7, Y5N ONE (07:08)
[2020-07-02 08:35] LABS: EOS % 3.6 % (0-4.5); HEMATOCRIT 23.5 % (35.4-49); HEMOGLOBIN 7.9 GM/dL (11.7-16.9); LYMPH % 19.3 % (8-40); MCH 30.1 pg (25.7-33.7); MCHC 33.5 g/dl (32.0-35.9); MEAN CELL VOLUME 89.7 fl (80-96); MEAN PLT VOLUME 7.1 fl (7.5-11.1); NEUT % 67.1 % (42.8-82.8); PLATELET COUNT 386 K/MM3 (134-434); RBC 2.62 M/mm3 (4.00-5.60); RDW 15.4 % (11.9-15.9); WHITE BLOOD COUNT 10.2 K/mm3 (4.0-10.0)
[2020-07-02 08:51] LABS: POTASSIUM 4.6 mmol/L (3.5-5.1)
[2020-07-02 09:20] LABS: BILIRUBIN,TOTAL 0.3 mg/dL (0.2-1)
[2020-07-02 09:21] LABS: TOT PROT 5.3 g/dl (6.4-8.2)
[2020-07-02 09:22] LABS: BLOOD UREA NITROGEN 19.7 mg/dL (7-18)
[2020-07-02 09:23] LABS: CALCIUM 8.6 mg/dL (8.5-10.1)
[2020-07-02 09:25] LABS: CREATININE 1.2 mg/dL (0.55-1.3)
[2020-07-02] MEDS ORDERED: PROPOFOL 20 ML ONE ×2 (09:54)
[2020-07-02] MEDS ORDERED: LIDOCAINE HCL/PF 2% SDV 5ML VIAL ONE (09:54)
[2020-07-02] MEDS ORDERED: EPHEDRINE SULFATE/0.9% NACL/PF 50 MG/10 ML SYRINGE NR ONE (09:57)
[2020-07-02] MEDS: HYDROCORTISONE 2.5% TOPICAL CREAM 30 GM TUBE PR SCH (10:00)
[2020-07-02] MEDS: MULTIVITAMINS THER W-MINERALS COMBO TABLET (FP) PO SCH (10:00)
[2020-07-02] MEDS: amLODIPine BESYLATE 10 MG TABLET (FP) PO SCH (10:00)
[2020-07-02] MEDS: RANOLAZINE E.R. 500 MG TABLET (FP) PO SCH ×2 (10:00→21:47)
[2020-07-02] MEDS: ENOXAPARIN NA (PORCINE) 40 MG/0.4 ML DISP.SYRIN SQ SCH (10:00)
[2020-07-02] MEDS: PANTOPRAZOLE 40 MG TABLET PO SCH (10:00)
[2020-07-02] MEDS ORDERED: IRON SUCROSE INJECTION 200 MG in SODIUM CHLORIDE 90 ML IVPB ONE (10:00)
[2020-07-02] MEDS ORDERED: DEXTROSE 5%-WATER 100 ML IVPB ONE (10:25)
[2020-07-02] MEDS ORDERED: DEXAMETHASONE SOD PHOSPHATE 4 MG/1 ML VIAL ONE (11:10)
[2020-07-02] MEDS: CEFTRIAXONE 2 GM in DEXTROSE 5%-WATER 2 GM/100 ML BAG IVPB SCH (11:11)
[2020-07-02] MEDS ORDERED: ONDANSETRON 4 MG/2 ML VIAL IVPUSH PRN ×2 (12:05→12:33)
[2020-07-02] MEDS ORDERED: LACTATED RINGERS SOLUTION 1,000 ML IV SCH (12:15)
[2020-07-02] MEDS ORDERED: guaiFENesin 200 MG/10 ML 10 ML UNIT-DOSE CUPS PO PRN (12:33)
[2020-07-02] MEDS ORDERED: NITROGLYCERIN SUBLINGUAL 1/150 0.4 MG TAB SL PRN (12:33)
[2020-07-02] MEDS ORDERED: D5-1/2NS+10 MEQ KCL - 10 MEQ/1,000 ML INFUS.BAG IV SCH (12:33)
[2020-07-02] MEDS ORDERED: ACETAMINOPHEN 325 MG TABLET (FP) PO PRN (12:33)
[2020-07-02] MEDS: LACTATED RINGERS SOLUTION 1,000 ML IV SCH (13:00)
[2020-07-02] MEDS: ATORVASTATIN CA 80 MG TABLET (FP) PO SCH (21:47)
[2020-07-02] MEDS: SENNOSIDES 8.6MG TABLET (FP) PO SCH (21:47)
[2020-07-02] MEDS: HYDROCORTISONE 2.5% TOPICAL CREAM 30 GM TUBE RC SCH (21:53)
[2020-07-02] MEDS ORDERED: POLYETHYLENE GLYCOL 3350 119 GM BTL PO SCH (22:00)
[2020-07-03] MEDS: GABAPENTIN 100 MG CAPSULE PO SCH ×4 (06:40→21:32)
[2020-07-03 08:31] LABS: BASO % 0.3 % (0-2.0); EOS % 0.2 % (0-4.5); HEMATOCRIT 24.4 % (35.4-49); LYMPH % 8.7 % (8-40); MCH 29.6 pg (25.7-33.7); MCHC 32.7 g/dl (32.0-35.9); MEAN CELL VOLUME 90.4 fl (80-96); MONO % 4.9 % (3.8-10.2); NEUT % 85.9 % (42.8-82.8); PLATELET COUNT 425 K/MM3 (134-434); RDW 15.6 % (11.9-15.9); WHITE BLOOD COUNT 14.6 K/mm3 (4.0-10.0)
[2020-07-03 08:55] LABS: POTASSIUM 4.3 mmol/L (3.5-5.1)
[2020-07-03 09:01] LABS: ALBUMIN 2.1 g/dl (3.4-5.0); BLOOD UREA NITROGEN 19.6 mg/dL (7-18); CALCIUM 8.9 mg/dL (8.5-10.1)
[2020-07-03 09:04] LABS: CREATININE 1.3 mg/dL (0.55-1.3)
[2020-07-03 09:05] LABS: BILIRUBIN,TOTAL 0.7 mg/dL (0.2-1); TOT PROT 5.4 g/dl (6.4-8.2)
[2020-07-03] MEDS ORDERED: DEXTROSE 5%-WATER 100 ML IVPB ONE (09:49)
[2020-07-03] MEDS: RANOLAZINE E.R. 500 MG TABLET (FP) PO SCH ×3 (09:53→21:33)
[2020-07-03] MEDS: amLODIPine BESYLATE 10 MG TABLET (FP) PO SCH (09:53)
[2020-07-03] MEDS: MULTIVITAMINS THER W-MINERALS COMBO TABLET (FP) PO SCH (09:53)
[2020-07-03] MEDS: traMADol HCL 50 MG TABLET PO PRN (09:53)
[2020-07-03] MEDS: PANTOPRAZOLE 40 MG TABLET PO SCH (09:53)
[2020-07-03] MEDS: CEFTRIAXONE 2 GM in DEXTROSE 5%-WATER 2 GM/100 ML BAG IVPB SCH (09:54)
[2020-07-03] MEDS: POLYETHYLENE GLYCOL 3350 119 GM BTL PO SCH ×3 (09:55→21:32)
[2020-07-03] MEDS: ENOXAPARIN NA (PORCINE) 40 MG/0.4 ML DISP.SYRIN SQ SCH (09:56)
[2020-07-03] MEDS: HYDROCORTISONE 2.5% TOPICAL CREAM 30 GM TUBE RC SCH ×3 (09:56→21:32)
[2020-07-03] MEDS: LACTATED RINGERS SOLUTION 1,000 ML IV SCH ×2 (10:37→20:44)
[2020-07-03] MEDS: ATORVASTATIN CA 80 MG TABLET (FP) PO SCH ×2 (20:40→21:32)
[2020-07-03] MEDS: SENNOSIDES 8.6MG TABLET (FP) PO SCH ×2 (20:40→21:33)
[2020-07-04] MEDS: traMADol HCL 50 MG TABLET PO PRN ×2 (00:09→09:50)
[2020-07-04] MEDS: GABAPENTIN 100 MG CAPSULE PO SCH ×3 (06:56→21:39)
[2020-07-04 08:10] LABS: POTASSIUM 4.4 mmol/L (3.5-5.1)
[2020-07-04 08:11] LABS: BASO % 1.2 % (0-2.0); EOS % 2.1 % (0-4.5); HEMATOCRIT 23.8 % (35.4-49); HEMOGLOBIN 7.8 GM/dL (11.7-16.9); LYMPH % 27.2 % (8-40); MCH 29.6 pg (25.7-33.7); MCHC 32.9 g/dl (32.0-35.9); MEAN CELL VOLUME 89.8 fl (80-96); MONO % 8.8 % (3.8-10.2); NEUT % 60.7 % (42.8-82.8); PLATELET COUNT 441 K/MM3 (134-434); RBC 2.65 M/mm3 (4.00-5.60); RDW 15.2 % (11.9-15.9)
[2020-07-04 08:14] LABS: CALCIUM 8.9 mg/dL (8.5-10.1)
[2020-07-04 08:15] LABS: BLOOD UREA NITROGEN 21.3 mg/dL (7-18)
[2020-07-04 08:18] LABS: CREATININE 1.3 mg/dL (0.55-1.3)
[2020-07-04 08:19] LABS: BILIRUBIN,TOTAL 0.5 mg/dL (0.2-1); TOT PROT 5.2 g/dl (6.4-8.2)
[2020-07-04] MEDS ORDERED: PT OWN MED DRAWER 7, Y5N ONE (09:42)
[2020-07-04] MEDS ORDERED: DEXTROSE 5%-WATER 100 ML IVPB ONE (09:42)
[2020-07-04] MEDS: CEFTRIAXONE 2 GM in DEXTROSE 5%-WATER 2 GM/100 ML BAG IVPB SCH (09:49)
[2020-07-04] MEDS: RANOLAZINE E.R. 500 MG TABLET (FP) PO SCH ×2 (09:50→21:38)
[2020-07-04] MEDS: PANTOPRAZOLE 40 MG TABLET PO SCH (09:50)
[2020-07-04] MEDS: amLODIPine BESYLATE 10 MG TABLET (FP) PO SCH (09:50)
[2020-07-04] MEDS: ENOXAPARIN NA (PORCINE) 40 MG/0.4 ML DISP.SYRIN SQ SCH (09:51)
[2020-07-04] MEDS: MULTIVITAMINS THER W-MINERALS COMBO TABLET (FP) PO SCH (09:51)
[2020-07-04] MEDS: HYDROCORTISONE 2.5% TOPICAL CREAM 30 GM TUBE RC SCH ×2 (09:51→21:38)
[2020-07-04] MEDS: POLYETHYLENE GLYCOL 3350 119 GM BTL PO SCH ×2 (09:51→21:40)
[2020-07-04] MEDS: LACTATED RINGERS SOLUTION 1,000 ML IV SCH (13:08)
[2020-07-04] MEDS: ATORVASTATIN CA 80 MG TABLET (FP) PO SCH (21:39)
[2020-07-04] MEDS: SENNOSIDES 8.6MG TABLET (FP) PO SCH (21:39)
[2020-07-05] MEDS: GABAPENTIN 100 MG CAPSULE PO SCH ×3 (05:17→21:07)
[2020-07-05] MEDS ORDERED: DEXTROSE 5%-WATER 100 ML IVPB ONE (09:17)
[2020-07-05 09:22] LABS: BASO % 0.8 % (0-2.0); EOS % 2.2 % (0-4.5); HEMATOCRIT 25.5 % (35.4-49); HEMOGLOBIN 8.5 GM/dL (11.7-16.9); LYMPH % 23.2 % (8-40); MCH 30.1 pg (25.7-33.7); MCHC 33.4 g/dl (32.0-35.9); MEAN CELL VOLUME 90.2 fl (80-96); MONO % 10.3 % (3.8-10.2); NEUT % 63.5 % (42.8-82.8); PLATELET COUNT 475 K/MM3 (134-434); RBC 2.83 M/mm3 (4.00-5.60); RDW 15.9 % (11.9-15.9); WHITE BLOOD COUNT 8.1 K/mm3 (4.0-10.0)
[2020-07-05] MEDS: ENOXAPARIN NA (PORCINE) 40 MG/0.4 ML DISP.SYRIN SQ SCH (09:49)
[2020-07-05] MEDS: HYDROCORTISONE 2.5% TOPICAL CREAM 30 GM TUBE RC SCH ×2 (09:49→21:14)
[2020-07-05] MEDS: CEFTRIAXONE 2 GM in DEXTROSE 5%-WATER 2 GM/100 ML BAG IVPB SCH (09:49)
[2020-07-05] MEDS: amLODIPine BESYLATE 10 MG TABLET (FP) PO SCH (09:49)
[2020-07-05] MEDS: POLYETHYLENE GLYCOL 3350 119 GM BTL PO SCH ×2 (09:50→21:07)
[2020-07-05] MEDS: RANOLAZINE E.R. 500 MG TABLET (FP) PO SCH ×2 (09:50→21:07)
[2020-07-05] MEDS: PANTOPRAZOLE 40 MG TABLET PO SCH (09:50)
[2020-07-05] MEDS: MULTIVITAMINS THER W-MINERALS COMBO TABLET (FP) PO SCH (09:50)
[2020-07-05] MEDS: LACTATED RINGERS SOLUTION 1,000 ML IV SCH (13:45)
[2020-07-05] MEDS: SENNOSIDES 8.6MG TABLET (FP) PO SCH (21:07)
[2020-07-05] MEDS: ATORVASTATIN CA 80 MG TABLET (FP) PO SCH (21:07)
[2020-07-06] MEDS: GABAPENTIN 100 MG CAPSULE PO SCH ×3 (05:34→21:44)
[2020-07-06] MEDS ORDERED: PT OWN MED DRAWER 7, Y5N ONE (08:54)
[2020-07-06] MEDS: amLODIPine BESYLATE 10 MG TABLET (FP) PO SCH (09:10)
[2020-07-06] MEDS: ENOXAPARIN NA (PORCINE) 40 MG/0.4 ML DISP.SYRIN SQ SCH (09:10)
[2020-07-06] MEDS: PANTOPRAZOLE 40 MG TABLET PO SCH (09:10)
[2020-07-06] MEDS: MULTIVITAMINS THER W-MINERALS COMBO TABLET (FP) PO SCH (09:10)
[2020-07-06] MEDS: RANOLAZINE E.R. 500 MG TABLET (FP) PO SCH ×2 (09:10→21:45)
[2020-07-06] MEDS: HYDROCORTISONE 2.5% TOPICAL CREAM 30 GM TUBE RC SCH ×2 (09:11→21:47)
[2020-07-06] MEDS: POLYETHYLENE GLYCOL 3350 119 GM BTL PO SCH ×2 (09:11→21:46)
[2020-07-06] MEDS: SENNOSIDES 8.6MG TABLET (FP) PO SCH (21:45)
[2020-07-06] MEDS: ATORVASTATIN CA 80 MG TABLET (FP) PO SCH (21:45)
[2020-07-07] MEDS: GABAPENTIN 100 MG CAPSULE PO SCH ×3 (06:33→23:00)
[2020-07-07] MEDS: ENOXAPARIN NA (PORCINE) 40 MG/0.4 ML DISP.SYRIN SQ SCH (10:34)
[2020-07-07] MEDS: amLODIPine BESYLATE 10 MG TABLET (FP) PO SCH (10:34)
[2020-07-07] MEDS: PANTOPRAZOLE 40 MG TABLET PO SCH (10:34)
[2020-07-07] MEDS: RANOLAZINE E.R. 500 MG TABLET (FP) PO SCH ×2 (10:34→23:00)
[2020-07-07] MEDS: MULTIVITAMINS THER W-MINERALS COMBO TABLET (FP) PO SCH (10:34)
[2020-07-07] MEDS: HYDROCORTISONE 2.5% TOPICAL CREAM 30 GM TUBE RC SCH ×2 (10:35→23:00)
[2020-07-07] MEDS: POLYETHYLENE GLYCOL 3350 119 GM BTL PO SCH (10:35)
[2020-07-07] MEDS: SENNOSIDES 8.6MG TABLET (FP) PO SCH (22:58)
[2020-07-07] MEDS: ATORVASTATIN CA 80 MG TABLET (FP) PO SCH (23:00)
[2020-07-08] MEDS: GABAPENTIN 100 MG CAPSULE PO SCH ×3 (05:40→21:29)
[2020-07-08] MEDS ORDERED: SENNOSIDES 8.6MG TABLET (FP) PO SCH (08:59)
[2020-07-08] MEDS: RANOLAZINE E.R. 500 MG TABLET (FP) PO SCH ×2 (09:55→21:29)
[2020-07-08] MEDS: MULTIVITAMINS THER W-MINERALS COMBO TABLET (FP) PO SCH (09:55)
[2020-07-08] MEDS: PANTOPRAZOLE 40 MG TABLET PO SCH (09:55)
[2020-07-08] MEDS: ENOXAPARIN NA (PORCINE) 40 MG/0.4 ML DISP.SYRIN SQ SCH (09:55)
[2020-07-08] MEDS: amLODIPine BESYLATE 10 MG TABLET (FP) PO SCH (09:55)
[2020-07-08] MEDS: HYDROCORTISONE 2.5% TOPICAL CREAM 30 GM TUBE RC SCH ×2 (09:56→21:35)
[2020-07-08] MEDS: POLYETHYLENE GLYCOL 3350 119 GM BTL PO SCH (09:56)
[2020-07-08] MEDS: ATORVASTATIN CA 80 MG TABLET (FP) PO SCH (21:30)
[2020-07-09] MEDS: GABAPENTIN 100 MG CAPSULE PO SCH ×2 (06:01→15:40)
[2020-07-09] MEDS: amLODIPine BESYLATE 10 MG TABLET (FP) PO SCH (09:27)
[2020-07-09] MEDS: MULTIVITAMINS THER W-MINERALS COMBO TABLET (FP) PO SCH (09:27)
[2020-07-09] MEDS: RANOLAZINE E.R. 500 MG TABLET (FP) PO SCH (09:27)
[2020-07-09] MEDS: PANTOPRAZOLE 40 MG TABLET PO SCH (09:27)
[2020-07-09] MEDS: ENOXAPARIN NA (PORCINE) 40 MG/0.4 ML DISP.SYRIN SQ SCH (09:28)
[2020-07-09] MEDS: POLYETHYLENE GLYCOL 3350 119 GM BTL PO SCH (09:28)
[2020-07-09] MEDS: HYDROCORTISONE 2.5% TOPICAL CREAM 30 GM TUBE RC SCH (09:28)
[2020-07-09 14:49] VITALS: BP 108/51; PULSE 67; TEMP 98.4
== END 2020-07-09 16:29 | DRG 662 ==
LOC: JER 23:41 → JERBED 06-25 04:18 → J6S 06-25 12:30
PROVIDERS: ADMIT Internal Medicine; ATTEND Internal Medicine
PROC: 0TJB8ZZ Inspection of Bladder, Via Natural or Artificial Opening Endoscopic (ICD-10-PCS; 2020-07-02)
PROC: 0T9B00Z Drainage of Bladder with Drainage Device, Open Approach (ICD-10-PCS; principal; 2020-07-02 10:30)
DX: T83.598A Infection and inflammatory reaction due to other prosthetic device, implant and graft in urinary system, initial encounter (principal); E43 Unspecified severe protein-calorie malnutrition; N39.0 Urinary tract infection, site not specified; S06.0X1A Concussion with loss of consciousness of 30 minutes or less, initial encounter; N17.9 Acute kidney failure, unspecified; R50.9 Fever, unspecified; E77.8 Other disorders of glycoprotein metabolism; I10 Essential (primary) hypertension; E78.5 Hyperlipidemia, unspecified; I25.10 Atherosclerotic heart disease of native coronary artery without angina pectoris; N31.9 Neuromuscular dysfunction of bladder, unspecified; I73.9 Peripheral vascular disease, unspecified; I25.2 Old myocardial infarction; K21.9 Gastro-esophageal reflux disease without esophagitis; N40.0 Benign prostatic hyperplasia without lower urinary tract symptoms; D50.9 Iron deficiency anemia, unspecified; M54.5 Low back pain; N48.1 Balanitis; B96.20 Unspecified Escherichia coli [E. coli] as the cause of diseases classified elsewhere; I12.9 Hypertensive chronic kidney disease with stage 1 through stage 4 chronic kidney disease, or unspecified chronic kidney disease; N18.9 Chronic kidney disease, unspecified; R26.81 Unsteadiness on feet; R33.9 Retention of urine, unspecified; N32.89 Other specified disorders of bladder; D72.829 Elevated white blood cell count, unspecified; N47.1 Phimosis; K60.2 Anal fissure, unspecified; W18.30XA Fall on same level, unspecified, initial encounter; Z91.81 History of falling; Y92.099 Unspecified place in other non-institutional residence as the place of occurrence of the external cause; Z86.718 Personal history of other venous thrombosis and embolism; Z68.26 Body mass index [BMI] 26.0-26.9, adult
CPT/HCPCS: 36415; 70450-TC; 71045-TC-FY; 72125-TC; 72170-TC-FY; 76775-TC; 80053; 80061; 81003; 82272; 82550; 82728; 82803; 83036; 83540; 83550; 83605; 83615; 83721; 84443; 84484; 85025; 85379; 85610; 85730; 86140; 87040; 87070; 87086; 87186; 87205; 93005; 93010; 93970-TC; 94760; 97116-GP; 97161-GP; 99285-25; C9803; J0131; J1756; U0003

== ENCOUNTER 2020-11-13 09:14 | Inpatient (IN) | payer OTHER ==
[2020-11-13] MEDS ORDERED: morphine CARPU-JECT 2 MG/1 ML DISP.SYRIN IVPUSH ONE ×2 (10:13→12:12)
[2020-11-13] MEDS ORDERED: MORPHINE SULFATE 2 MG/ML VIAL ONE ×2 (10:24→12:15)
[2020-11-13 12:12] LABS: BASO % 0.4 % (0-2.0); EOS % 0.5 % (0-4.5); HEMOGLOBIN 11.5 GM/dL (11.7-16.9); LYMPH % 10.1 % (8-40); MCH 30.5 pg (25.7-33.7); MCHC 33.9 g/dl (32.0-35.9); MEAN CELL VOLUME 89.7 fl (80-96); MEAN PLT VOLUME 7.4 fl (7.5-11.1); MONO % 7.6 % (3.8-10.2); NEUT % 81.4 % (42.8-82.8); PLATELET COUNT 293 K/MM3 (134-434); RBC 3.79 M/mm3 (4.00-5.60); RDW 17.3 % (11.9-15.9); WHITE BLOOD COUNT 10.3 K/mm3 (4.0-10.0)
[2020-11-13] MEDS ORDERED: ONDANSETRON 4 MG/2 ML VIAL IVPUSH ONE (12:13)
[2020-11-13] MEDS ORDERED: ONDANSETRON 4 MG/2 ML VIAL ONE (12:15)
[2020-11-13 12:20] LABS: INR 0.98 (0.83-1.09); PROTHROMBIN TIME (PATIENT) 11.9 SEC (9.7-13.0)
[2020-11-13 12:23] LABS: ACTIVATED PTT 27.2 SECONDS (25.2-36.5)
[2020-11-13 12:34] LABS: ALBUMIN 3.3 g/dl (3.4-5.0); BLOOD UREA NITROGEN 31.6 mg/dL (7-18); CALCIUM 9.4 mg/dL (8.5-10.1)
[2020-11-13 12:38] LABS: CREATININE 1.5 mg/dL (0.55-1.3)
[2020-11-13 12:39] LABS: BILIRUBIN,TOTAL 0.7 mg/dL (0.2-1); TOT PROT 6.9 g/dl (6.4-8.2)
[2020-11-13] MEDS ORDERED: MIDAZOLAM HCL 2 MG/2 ML SINGLE DOSE VIAL ONE ×2 (15:25→16:06)
[2020-11-13] MEDS ORDERED: PROPOFOL 20 ML ONE ×4 (15:25→16:27)
[2020-11-13] MEDS ORDERED: CEFAZOLIN 1 GM/D5W 1 GM/50 ML BAG IVPB SCH (15:45)
[2020-11-13] MEDS ORDERED: NITROGLYCERIN SUBLINGUAL 1/150 0.4 MG TAB SL PRN ×2 (15:48→17:28)
[2020-11-13] MEDS ORDERED: ceFAZolin 2 GRAM PREMIX BAG IVPB ONE (16:00)
[2020-11-13] MEDS ORDERED: LACTATED RINGERS SOLUTION 1,000 ML/1,000 ML INFUS.BAG IV SCH ×2 (16:00→17:28)
[2020-11-13] MEDS ORDERED: ceFAZolin SODIUM 1 GM VIAL ONE (16:07)
[2020-11-13] MEDS ORDERED: PANTOPRAZOLE SODIUM 40 MG VIAL IVPUSH SCH (16:15)
[2020-11-13] MEDS ORDERED: oxyCODONE HCL 5 MG TABLET PO ONE (17:30)
[2020-11-13] MEDS ORDERED: ACETAMINOPHEN 325 MG TABLET (FP) PO ONE (17:30)
[2020-11-13] MEDS ORDERED: ONDANSETRON 4 MG/2 ML VIAL IVPUSH PRN (17:36)
[2020-11-13] MEDS ORDERED: ACETAMINOPHEN 1000 MG/100 ML VIAL (NON FORMULARY) IVPB ONE (17:37)
[2020-11-13] MEDS ORDERED: ACETAMINOPHEN INJECTION 100 ML IVPB ONE (19:25)
[2020-11-13] MEDS: RANOLAZINE E.R. 500 MG TABLET (FP) PO SCH (21:29)
[2020-11-13] MEDS ORDERED: ATORVASTATIN CA 20 MG TABLET (FP) PO SCH (22:00)
[2020-11-13] MEDS ORDERED: RANOLAZINE E.R. 500 MG TABLET (FP) PO SCH (22:00)
[2020-11-14] MEDS: CEFAZOLIN 1 GM/D5W 1 GM/50 ML BAG IVPB SCH ×3 (02:00→20:17)
[2020-11-14] MEDS: oxyCODONE HCL 5 MG TABLET PO PRN ×3 (02:00→21:07)
[2020-11-14 02:55] VITALS: BMI 23.5
[2020-11-14] MEDS: DOCUSATE SODIUM 100 MG CAPSULE (FP) PO SCH ×3 (05:17→21:07)
[2020-11-14] MEDS: GABAPENTIN 300 MG CAPSULE PO SCH ×3 (05:17→21:07)
[2020-11-14] MEDS ORDERED: GABAPENTIN 300 MG CAPSULE PO SCH (06:00)
[2020-11-14] MEDS ORDERED: DOCUSATE SODIUM 100 MG CAPSULE (FP) PO SCH (06:00)
[2020-11-14 08:19] LABS: BASO % 0.6 % (0-2.0); EOS % 1.3 % (0-4.5); HEMATOCRIT 27.6 % (35.4-49); HEMOGLOBIN 9.5 GM/dL (11.7-16.9); LYMPH % 17.6 % (8-40); MCH 31.1 pg (25.7-33.7); MCHC 34.5 g/dl (32.0-35.9); MEAN CELL VOLUME 90.2 fl (80-96); MONO % 14.4 % (3.8-10.2); NEUT % 66.1 % (42.8-82.8); PLATELET COUNT 222 K/MM3 (134-434); RBC 3.06 M/mm3 (4.00-5.60); RDW 16.9 % (11.9-15.9); WHITE BLOOD COUNT 8.4 K/mm3 (4.0-10.0)
[2020-11-14] MEDS: ACETAMINOPHEN 325 MG TABLET (FP) PO PRN ×2 (08:30→21:08)
[2020-11-14 08:37] LABS: BLOOD UREA NITROGEN 21.1 mg/dL (7-18); CALCIUM 9.2 mg/dL (8.5-10.1)
[2020-11-14 08:41] LABS: CREATININE 1.2 mg/dL (0.55-1.3)
[2020-11-14 08:42] LABS: BILIRUBIN,TOTAL 0.8 mg/dL (0.2-1); TOT PROT 5.7 g/dl (6.4-8.2)
[2020-11-14 08:52] LABS: ALBUMIN 2.6 g/dl (3.4-5.0)
[2020-11-14] MEDS ORDERED: IRON SUCROSE INJECTION 200 MG in SODIUM CHLORIDE 90 ML IVPB ONE (08:52)
[2020-11-14] MEDS ORDERED: PANTOPRAZOLE 40 MG TABLET PO SCH (10:00)
[2020-11-14] MEDS ORDERED: MULTIVITAMINS THER W-MINERALS COMBO TABLET (FP) PO SCH (10:00)
[2020-11-14] MEDS ORDERED: POLYETHYLENE GLYCOL 3350 119 GM BTL PO SCH (10:00)
[2020-11-14] MEDS ORDERED: amLODIPine BESYLATE 10 MG TABLET (FP) PO SCH (10:00)
[2020-11-14] MEDS ORDERED: PANTOPRAZOLE SODIUM 40 MG VIAL IVPUSH SCH (10:00)
[2020-11-14] MEDS: amLODIPine BESYLATE 10 MG TABLET (FP) PO SCH (11:23)
[2020-11-14] MEDS: POLYETHYLENE GLYCOL 3350 119 GM BTL PO SCH (11:23)
[2020-11-14] MEDS: MULTIVITAMINS THER W-MINERALS COMBO TABLET (FP) PO SCH (11:23)
[2020-11-14] MEDS: PANTOPRAZOLE 40 MG TABLET PO SCH (11:23)
[2020-11-14] MEDS: RANOLAZINE E.R. 500 MG TABLET (FP) PO SCH ×2 (11:24→21:06)
[2020-11-14] MEDS ORDERED: PT OWN MED DRAWER 7, Y5N ONE ×3 (11:25→20:08)
[2020-11-14] MEDS: CHOLECALCIFEROL (VIT D3) 5000 UNITS (125 MCG) CAP PO SCH (12:58)
[2020-11-14] MEDS ORDERED: LACTATED RINGERS SOLUTION 1,000 ML/1,000 ML INFUS.BAG IV SCH (13:30)
[2020-11-14] MEDS: ENOXAPARIN NA (PORCINE) 40 MG/0.4 ML DISP.SYRIN SQ SCH (18:21)
[2020-11-14] MEDS: SENNOSIDES 8.6MG TABLET (FP) PO SCH (21:06)
[2020-11-14] MEDS: ATORVASTATIN CA 20 MG TABLET (FP) PO SCH (21:07)
[2020-11-14] MEDS ORDERED: SENNOSIDES 8.6MG TABLET (FP) PO SCH (22:00)
[2020-11-14] MEDS ORDERED: ATORVASTATIN CA 20 MG TABLET (FP) PO SCH (22:00)
[2020-11-15] MEDS ORDERED: PT OWN MED DRAWER 7, Y5N ONE ×2 (04:58→10:01)
[2020-11-15] MEDS: ACETAMINOPHEN 325 MG TABLET (FP) PO PRN ×3 (05:58→21:31)
[2020-11-15] MEDS: oxyCODONE HCL 5 MG TABLET PO PRN ×3 (05:59→21:30)
[2020-11-15] MEDS: DOCUSATE SODIUM 100 MG CAPSULE (FP) PO SCH ×3 (06:00→21:30)
[2020-11-15] MEDS: GABAPENTIN 300 MG CAPSULE PO SCH ×3 (06:00→21:29)
[2020-11-15 09:43] LABS: BASO % 0.5 % (0-2.0); EOS % 2.1 % (0-4.5); HEMOGLOBIN 9.7 GM/dL (11.7-16.9); LYMPH % 17.9 % (8-40); MCH 31.2 pg (25.7-33.7); MCHC 34.6 g/dl (32.0-35.9); MEAN CELL VOLUME 90.1 fl (80-96); MEAN PLT VOLUME 7.3 fl (7.5-11.1); MONO % 13.4 % (3.8-10.2); NEUT % 66.1 % (42.8-82.8); PLATELET COUNT 229 K/MM3 (134-434); RBC 3.11 M/mm3 (4.00-5.60); RDW 17.4 % (11.9-15.9); WHITE BLOOD COUNT 9.3 K/mm3 (4.0-10.0)
[2020-11-15] MEDS: amLODIPine BESYLATE 10 MG TABLET (FP) PO SCH (10:06)
[2020-11-15] MEDS: RANOLAZINE E.R. 500 MG TABLET (FP) PO SCH ×2 (10:06→21:29)
[2020-11-15] MEDS: MULTIVITAMINS THER W-MINERALS COMBO TABLET (FP) PO SCH (10:07)
[2020-11-15] MEDS: PANTOPRAZOLE 40 MG TABLET PO SCH (10:08)
[2020-11-15] MEDS: CHOLECALCIFEROL (VIT D3) 5000 UNITS (125 MCG) CAP PO SCH (10:08)
[2020-11-15] MEDS: POLYETHYLENE GLYCOL 3350 119 GM BTL PO SCH (10:09)
[2020-11-15] MEDS: ENOXAPARIN NA (PORCINE) 40 MG/0.4 ML DISP.SYRIN SQ SCH (10:10)
[2020-11-15 10:40] LABS: CALCIUM 9.5 mg/dL (8.5-10.1)
[2020-11-15 10:41] LABS: BLOOD UREA NITROGEN 27.4 mg/dL (7-18)
[2020-11-15 10:44] LABS: CREATININE 1.5 mg/dL (0.55-1.3)
[2020-11-15] MEDS: ATORVASTATIN CA 20 MG TABLET (FP) PO SCH (21:30)
[2020-11-15] MEDS: SENNOSIDES 8.6MG TABLET (FP) PO SCH (21:32)
[2020-11-16] MEDS: oxyCODONE HCL 5 MG TABLET PO PRN ×2 (05:38→19:56)
[2020-11-16] MEDS: DOCUSATE SODIUM 100 MG CAPSULE (FP) PO SCH ×3 (05:38→22:01)
[2020-11-16] MEDS: GABAPENTIN 300 MG CAPSULE PO SCH ×3 (05:38→22:00)
[2020-11-16] MEDS: ACETAMINOPHEN 325 MG TABLET (FP) PO PRN ×3 (05:39→19:57)
[2020-11-16] MEDS ORDERED: MINERAL OIL ENEMA 133 ML ENEMA PR ONE (10:00)
[2020-11-16] MEDS ORDERED: PT OWN MED DRAWER 7, Y5N ONE (10:30)
[2020-11-16] MEDS: RANOLAZINE E.R. 500 MG TABLET (FP) PO SCH ×2 (10:32→22:01)
[2020-11-16] MEDS: amLODIPine BESYLATE 10 MG TABLET (FP) PO SCH (10:32)
[2020-11-16] MEDS: ENOXAPARIN NA (PORCINE) 40 MG/0.4 ML DISP.SYRIN SQ SCH (10:32)
[2020-11-16] MEDS: PANTOPRAZOLE 40 MG TABLET PO SCH (10:32)
[2020-11-16] MEDS: POLYETHYLENE GLYCOL 3350 119 GM BTL PO SCH (10:32)
[2020-11-16] MEDS: CHOLECALCIFEROL (VIT D3) 5000 UNITS (125 MCG) CAP PO SCH (10:32)
[2020-11-16] MEDS: MULTIVITAMINS THER W-MINERALS COMBO TABLET (FP) PO SCH (10:32)
[2020-11-16] MEDS: SENNOSIDES 8.6MG TABLET (FP) PO SCH (22:01)
[2020-11-16] MEDS: ATORVASTATIN CA 20 MG TABLET (FP) PO SCH (22:01)
[2020-11-17] MEDS: ACETAMINOPHEN 325 MG TABLET (FP) PO PRN (02:06)
[2020-11-17] MEDS: oxyCODONE HCL 5 MG TABLET PO PRN (02:07)
[2020-11-17] MEDS: GABAPENTIN 300 MG CAPSULE PO SCH (05:34)
[2020-11-17] MEDS: DOCUSATE SODIUM 100 MG CAPSULE (FP) PO SCH (05:34)
[2020-11-17 09:24] LABS: BASO % 0.7 % (0-2.0); EOS % 4.3 % (0-4.5); HEMATOCRIT 23.8 % (35.4-49); HEMOGLOBIN 8.4 GM/dL (11.7-16.9); LYMPH % 16.4 % (8-40); MCH 31.3 pg (25.7-33.7); MCHC 35.1 g/dl (32.0-35.9); MEAN CELL VOLUME 89.2 fl (80-96); MEAN PLT VOLUME 7.6 fl (7.5-11.1); MONO % 14.1 % (3.8-10.2); NEUT % 64.5 % (42.8-82.8); PLATELET COUNT 254 K/MM3 (134-434); RBC 2.67 M/mm3 (4.00-5.60); RDW 17.1 % (11.9-15.9); WHITE BLOOD COUNT 8.9 K/mm3 (4.0-10.0)
[2020-11-17 10:17] LABS: BLOOD UREA NITROGEN 33.7 mg/dL (7-18); CALCIUM 9.5 mg/dL (8.5-10.1)
[2020-11-17 10:20] LABS: CREATININE 1.5 mg/dL (0.55-1.3)
[2020-11-17 10:28] VITALS: TEMP 98.2
[2020-11-17 10:31] VITALS: BP 119/49; PULSE 66
[2020-11-17] MEDS: amLODIPine BESYLATE 10 MG TABLET (FP) PO SCH (10:32)
[2020-11-17] MEDS ORDERED: PT OWN MED DRAWER 7, Y5N ONE (10:59)
[2020-11-17] MEDS: ENOXAPARIN NA (PORCINE) 40 MG/0.4 ML DISP.SYRIN SQ SCH (11:04)
[2020-11-17] MEDS: PANTOPRAZOLE 40 MG TABLET PO SCH (11:04)
[2020-11-17] MEDS: CHOLECALCIFEROL (VIT D3) 5000 UNITS (125 MCG) CAP PO SCH (11:04)
[2020-11-17] MEDS: MULTIVITAMINS THER W-MINERALS COMBO TABLET (FP) PO SCH (11:04)
[2020-11-17] MEDS: RANOLAZINE E.R. 500 MG TABLET (FP) PO SCH (11:04)
[2020-11-17] MEDS: POLYETHYLENE GLYCOL 3350 119 GM BTL PO SCH (11:05)
== END 2020-11-17 13:45 | DRG 481 ==
LOC: JER 09:14 → JERBED 13:32 → J5S 20:25
PROVIDERS: ADMIT Internal Medicine; ATTEND Internal Medicine
PROC: 0QS706Z Reposition Left Upper Femur with Intramedullary Internal Fixation Device, Open Approach (ICD-10-PCS; principal; 2020-11-13 15:00)
DX: S72.142A Displaced intertrochanteric fracture of left femur, initial encounter for closed fracture (principal); D62 Acute posthemorrhagic anemia; N18.9 Chronic kidney disease, unspecified; I25.10 Atherosclerotic heart disease of native coronary artery without angina pectoris; R55 Syncope and collapse; W19.XXXA Unspecified fall, initial encounter; Y93.9 Activity, unspecified; Y92.89 Other specified places as the place of occurrence of the external cause; Y99.9 Unspecified external cause status; I10 Essential (primary) hypertension; E78.5 Hyperlipidemia, unspecified; K21.9 Gastro-esophageal reflux disease without esophagitis; N40.0 Benign prostatic hyperplasia without lower urinary tract symptoms; K59.00 Constipation, unspecified
CPT/HCPCS: 36415; 70450-TC; 72125-TC; 73523-TC-FY; 73552-TC-LT-FY; 73562-TC-LT-FY; 80048; 80053; 82306; 82728; 83540; 83550; 85025; 85610; 85730; 86850; 86900; 86901; 93005; 93010; 94010; 94760; 97116-GP; 97162-GP; 99285-25; C9803; J0131; J1756; U0003; U0005

== ENCOUNTER 2021-10-09 14:52 | Observation (INO) | payer OTHER ==
[2021-10-09] MEDS ORDERED: SODIUM CHLORIDE 1,000 ML IV SCH (15:30)
[2021-10-09 15:46] LABS: BASO % 1.4 % (0-2.0); EOS % 2.6 % (0-4.5); HEMATOCRIT 36.9 % (35.4-49); HEMOGLOBIN 12.7 GM/dL (11.7-16.9); LYMPH % 24.6 % (8-40); MCH 31.5 pg (25.7-33.7); MCHC 34.4 g/dl (32.0-35.9); MEAN CELL VOLUME 91.6 fl (80-96); MEAN PLT VOLUME 7.3 fl (7.5-11.1); MONO % 11.6 % (3.8-10.2); NEUT % 59.8 % (42.8-82.8); PLATELET COUNT 286 10^3/uL (134-434); RBC 4.03 M/mm3 (4.00-5.60); RDW 14.9 % (11.9-15.9); WHITE BLOOD COUNT 6.4 K/mm3 (4.0-10.0)
[2021-10-09 15:54] LABS: ALBUMIN 3.7 g/dl (3.4-5.0); CALCIUM 9.5 mg/dL (8.5-10.1)
[2021-10-09 15:55] LABS: BLOOD UREA NITROGEN 28.4 mg/dL (7-18)
[2021-10-09 15:58] LABS: CREATININE 1.7 mg/dL (0.55-1.3)
[2021-10-09 15:59] LABS: BILIRUBIN,TOTAL 0.5 mg/dL (0.2-1); TOT PROT 7.8 g/dl (6.4-8.2)
[2021-10-09 16:14] LABS: ACTIVATED PTT 27.4 SECONDS (25.2-36.5); INR 1.11 (0.83-1.09); PROTHROMBIN TIME (PATIENT) 12.8 SEC (9.7-13.0)
[2021-10-09] MEDS ORDERED: ASPIRIN 81 MG CHEWABLE TABLETS PO ONE (17:55)
[2021-10-09] MEDS ORDERED: ASPIRIN 81 MG CHEWABLE TABLETS ONE (18:04)
[2021-10-09] MEDS ORDERED: ACETAMINOPHEN 325 MG TABLET (FP) PO PRN (18:11)
[2021-10-09] MEDS ORDERED: NITROGLYCERIN SUBLINGUAL 1/150 0.4 MG TAB SL PRN (18:13)
[2021-10-09] MEDS ORDERED: MULTIVITAMINS (DAILY MVI) TABLET (FP) ONE (18:40)
[2021-10-09] MEDS ORDERED: ENOXAPARIN NA (PORCINE) 40 MG/0.4 ML DISP.SYRIN SQ ONE (18:40)
[2021-10-09] MEDS ORDERED: PANTOPRAZOLE 40 MG TABLET ONE (18:40)
[2021-10-09] MEDS: D5-1/2NS+10 MEQ KCL - 10 MEQ/1,000 ML INFUS.BAG IV SCH (18:49)
[2021-10-09] MEDS: ENOXAPARIN NA (PORCINE) 40 MG/0.4 ML DISP.SYRIN SQ SCH (18:49)
[2021-10-09] MEDS: PANTOPRAZOLE 40 MG TABLET PO SCH (18:49)
[2021-10-09] MEDS: MULTIVITAMINS THER W-MINERALS COMBO TABLET (FP) PO SCH (18:49)
[2021-10-09 19:17] LABS: EPI CELLS 1 /uL (0-25.1); HYALINE CASTS 1 /uL (0-3.1); URINE APPEARANCE CLEAR; URINE BACTERIA >9,000 /uL (0-1359); URINE BILIRUBIN NEGATIVE (NEGATIVE); URINE COLOR YELLOW; URINE GLUCOSE (UA) NEGATIVE (NEGATIVE); URINE KETONE NEGATIVE (NEGATIVE); URINE LEUK ESTERASE 2+ (NEGATIVE); URINE NITRITE POSITIVE (NEGATIVE); URINE PROTEIN NEGATIVE (NEGATIVE); URINE RBC 7 /uL (0-23.9); URINE UROBILINOGEN 0.2 mg/dL (0.2-1.0); URINE WBC 235 /uL (0-25.8)
[2021-10-09] MEDS: ATORVASTATIN CA 20 MG TABLET (FP) PO SCH (22:45)
[2021-10-09] MEDS: GABAPENTIN 300 MG CAPSULE PO SCH (22:46)
[2021-10-09] MEDS: RANOLAZINE E.R. 500 MG TABLET (FP) PO SCH (22:46)
[2021-10-09] MEDS: DOCUSATE SODIUM 100 MG CAPSULE (FP) PO SCH (22:46)
[2021-10-10 00:27] VITALS: BMI 24.8
[2021-10-10] MEDS: GABAPENTIN 300 MG CAPSULE PO SCH ×3 (05:56→21:34)
[2021-10-10] MEDS: DOCUSATE SODIUM 100 MG CAPSULE (FP) PO SCH ×3 (05:57→21:34)
[2021-10-10 07:40] LABS: BASO % 1.2 % (0-2.0); EOS % 2.8 % (0-4.5); HEMATOCRIT 33.9 % (35.4-49); HEMOGLOBIN 11.9 GM/dL (11.7-16.9); MCH 31.9 pg (25.7-33.7); MEAN CELL VOLUME 91.2 fl (80-96); MEAN PLT VOLUME 7.3 fl (7.5-11.1); MONO % 11.6 % (3.8-10.2); NEUT % 54.4 % (42.8-82.8); PLATELET COUNT 255 10^3/uL (134-434); RBC 3.72 M/mm3 (4.00-5.60); RDW 14.6 % (11.9-15.9)
[2021-10-10 07:52] LABS: CALCIUM 8.8 mg/dL (8.5-10.1)
[2021-10-10 07:55] LABS: CREATININE 1.3 mg/dL (0.55-1.3)
[2021-10-10] MEDS: amLODIPine BESYLATE 10 MG TABLET (FP) PO SCH (09:42)
[2021-10-10] MEDS: PANTOPRAZOLE 40 MG TABLET PO SCH (09:42)
[2021-10-10] MEDS: MULTIVITAMINS THER W-MINERALS COMBO TABLET (FP) PO SCH (09:42)
[2021-10-10] MEDS: ENOXAPARIN NA (PORCINE) 40 MG/0.4 ML DISP.SYRIN SQ SCH (09:42)
[2021-10-10] MEDS: RANOLAZINE E.R. 500 MG TABLET (FP) PO SCH ×2 (09:42→21:34)
[2021-10-10] MEDS ORDERED: CYANOCOBALAMIN (VITAMIN B-12) 1000 MCG/1 ML VIAL IM ONE (10:15)
[2021-10-10] MEDS: D5-1/2NS+10 MEQ KCL - 10 MEQ/1,000 ML INFUS.BAG IV SCH (18:51)
[2021-10-10] MEDS: ASPIRIN COATED 81 MG TABLET.EC PO SCH (19:44)
[2021-10-10] MEDS: ATORVASTATIN CA 20 MG TABLET (FP) PO SCH (21:34)
[2021-10-11] MEDS: GABAPENTIN 300 MG CAPSULE PO SCH (05:44)
[2021-10-11] MEDS: DOCUSATE SODIUM 100 MG CAPSULE (FP) PO SCH (05:44)
[2021-10-11 05:46] VITALS: PULSE 70
[2021-10-11 07:32] LABS: BASO % 0.9 % (0-2.0); HEMATOCRIT 34.6 % (35.4-49); HEMOGLOBIN 12.1 GM/dL (11.7-16.9); LYMPH % 30.9 % (8-40); MCH 31.7 pg (25.7-33.7); MEAN CELL VOLUME 90.7 fl (80-96); MEAN PLT VOLUME 7.3 fl (7.5-11.1); MONO % 9.8 % (3.8-10.2); NEUT % 55.4 % (42.8-82.8); PLATELET COUNT 253 10^3/uL (134-434); RBC 3.81 M/mm3 (4.00-5.60); RDW 14.5 % (11.9-15.9); WHITE BLOOD COUNT 7.3 K/mm3 (4.0-10.0)
[2021-10-11 07:35] LABS: CALCIUM 8.8 mg/dL (8.5-10.1)
[2021-10-11 07:36] LABS: BLOOD UREA NITROGEN 21.9 mg/dL (7-18)
[2021-10-11 07:39] LABS: CREATININE 1.5 mg/dL (0.55-1.3)
[2021-10-11] MEDS ORDERED: CYANOCOBALAMIN 1,000 MCG TABLET (FP) PO SCH (10:00)
[2021-10-11] MEDS: RANOLAZINE E.R. 500 MG TABLET (FP) PO SCH (10:34)
[2021-10-11] MEDS: amLODIPine BESYLATE 10 MG TABLET (FP) PO SCH (10:34)
[2021-10-11] MEDS: ENOXAPARIN NA (PORCINE) 40 MG/0.4 ML DISP.SYRIN SQ SCH (10:34)
[2021-10-11] MEDS: PANTOPRAZOLE 40 MG TABLET PO SCH (10:34)
[2021-10-11 10:35] VITALS: BP 152/67; TEMP 97.6
[2021-10-11] MEDS: MULTIVITAMINS THER W-MINERALS COMBO TABLET (FP) PO SCH (10:35)
[2021-10-11] MEDS: ASPIRIN COATED 81 MG TABLET.EC PO SCH (10:35)
== END 2021-10-11 13:14 | disposition home or self-care (01) ==
LOC: JER 14:52 → JERBED 16:59 → J4W 21:20
PROVIDERS: ADMIT Internal Medicine; ATTEND Internal Medicine
PROC: 3E023GC Introduction of Other Therapeutic Substance into Muscle, Percutaneous Approach (ICD-10-PCS; principal; 2021-10-09)
PROC: 3E0337Z Introduction of Electrolytic and Water Balance Substance into Peripheral Vein, Percutaneous Approach (ICD-10-PCS; 2021-10-09)
DX: G45.9 Transient cerebral ischemic attack, unspecified (principal); I11.9 Hypertensive heart disease without heart failure; I25.10 Atherosclerotic heart disease of native coronary artery without angina pectoris; R41.82 Altered mental status, unspecified; Z88.8 Allergy status to other drugs, medicaments and biological substances; R79.89 Other specified abnormal findings of blood chemistry; N17.9 Acute kidney failure, unspecified; M62.81 Muscle weakness (generalized); D64.9 Anemia, unspecified; N40.0 Benign prostatic hyperplasia without lower urinary tract symptoms; I69.30 Unspecified sequelae of cerebral infarction; Z97.8 Presence of other specified devices; D12.6 Benign neoplasm of colon, unspecified; K21.9 Gastro-esophageal reflux disease without esophagitis; Z98.890 Other specified postprocedural states; R33.9 Retention of urine, unspecified; I25.2 Old myocardial infarction; Z86.718 Personal history of other venous thrombosis and embolism; N31.2 Flaccid neuropathic bladder, not elsewhere classified; Z87.891 Personal history of nicotine dependence
CPT/HCPCS: 36415; 70450-TC; 70551-TC; 71045-TC-FY; 80048; 80053; 80061; 81003; 82607; 82962; 83036; 85025; 85610; 85730; 86850; 86900; 86901; 93005; 93010; 93880-TC; 96360; 96372; 99285-25; C9803; G0378; U0003; U0005